=== PATIENT | male | born 1960 | race Caucasian/White ===

== ENCOUNTER 2016-07-23 08:43 | Observation (INO) | payer SELFPAY ==
[~2016-07-23] VITALS: Ht 170.2 cm; Wt 68.0 kg
[2016-07-23 08:48] VITALS: BP 136/88; PULSE 96; RESP 18; TEMP 98.2; O2SAT 97
[2016-07-23 09:00] VITALS: BP 138/91; PULSE 85; RESP 20; TEMP 98; O2SAT 100
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
[2016-07-23] MEDS ORDERED: SODIUM CHLOR 0.9% 1000 ML INJ 1,000 ML IV SCH (09:27)
[2016-07-23] MEDS ORDERED: SODIUM CHLORIDE 0.9% FLUSH 10 ML FLUSH IV FLUSH PRN ×2 (09:30→11:30)
[2016-07-23] MEDS ORDERED: PANTOPRAZOLE SODIUM 40 MG VIAL IVP ONE (09:30)
[2016-07-23] MEDS ORDERED: ASPIRIN 81 MG CHEW TAB CHEW ONE (10:00)
[2016-07-23 10:07] LABS: BASOPHIL # 0.1 TH/MM3 (0-0.2); BASOPHIL % 1.2 % (0.0-2.0); EOSINOPHIL # 0.3 TH/MM3 (0-0.4); EOSINOPHIL % 2.2 % (0.0-4.0); HEMO FLAGS DIFF FINAL; LYMPHOCYTE # 2.5 TH/MM3 (1.0-4.8); MEAN CELL VOLUME 93.9 FL (80.0-100.0); MEAN CORPUSCULAR HEMOGLOBIN 32.4 PG (27.0-34.0); MEAN CORPUSCULAR HGB CONC 34.5 % (32.0-36.0); MONO % 8.7 % (0.0-8.0); NEUT % 66.9 % (16.0-70.0); PLATELET COUNT 496 TH/MM3 (150-450); RED BLOOD COUNT 4.69 MIL/MM3 (4.50-5.90); RED CELL DISTRIBUTION WIDTH 13.7 % (11.6-17.2); WHITE BLOOD COUNT 11.9 TH/MM3 (4.0-11.0)
[2016-07-23 10:09] VITALS: BP 134/85; PULSE 76; RESP 20; O2SAT 100
[2016-07-23 10:12] LABS: BACTERIA, URINE RARE /hpf; BLOOD, URINE NEG (NEG); GLUCOSE,URINE NEG (NEG); KETONE, URINE NEG (NEG); NITRITE,URINE NEG (NEG); PH, URINE 8.5 (5.0-8.5); SQUAMOUS EPITHELIAL CELL URINE <1 /hpf (0-5); URINE COLOR YELLOW (YELLW/STRAW)
[2016-07-23 10:13] LABS: COMMENT (UR) CULT NOT INDICATED; CULTURE IF INDICATED CULT NOT INDICATED
[2016-07-23 10:21] LABS: PROTHROMBIN TIME - PATIENT 10.6 SEC (9.8-11.6)
--- NOTE | 2016-07-23 10:23 | RADRPT ---
EXAM DATE/TIME: 07/23/2016 09:54 [place] COMPARISON: No previous studies available for comparison. INDICATIONS : Lower pelvic pain. ORAL CONTRAST: No oral contrast ingested. RADIATION DOSE: 9.96 CTDIvol (mGy) MEDICAL HISTORY : Gastroesophageal reflux disease. Pancreatitis. SURGICAL HISTORY : None. ENCOUNTER: Initial ACUITY: 1 week PAIN SCALE: 9/10 LOCATION: abdomen TECHNIQUE: Volumetric scanning of the abdomen and pelvis was performed. Using automated exposure control and ad justment of the mA and/or kV according to patient size, radiation dose was kept as low as reasonably achievable to obtain optimal diagnostic quality images. FINDINGS: LOWER LUNGS: The visualized lower lungs are clear. LIVER: Homogeneous density without lesion. There is no dilation of the biliary tree. No calcified gallston es. SPLEEN: Normal size without lesion. PANCREAS: Within normal limits. KIDNEYS: Normal in size and shape. There is no mass, stone, or hydronephrosis. ADRENAL GLANDS: There is probable left adrenal nodule measuring 3.1 x 2.3 x 2.6 cm. The right adrenal gland is unrema rkable. VASCULAR: There is no aortic aneurysm. BOWEL/MESENTERY: The stomach, small bowel, and colon demonstrate no acute abnormality. There is no free intraperitone al air or fluid. ABDOMINAL WALL: Within normal limits. RETROPERITONEUM: There is no lymphadenopathy. BLADDER: No wall thickening or mass. REPRODUCTIVE: Within normal limits. INGUINAL: There is no lymphadenopathy or hernia. MUSCULOSKELETAL: There is grade I anterolisthesis of L4 in relation to L5 and L5 in relation to S1. Mild degenerative changes are noted throughout the thoracolumbar spine. CONCLUSION: 1. No acute intra-abdominal process. 2. Probable left adrenal nodule measuring 2.3 x 3.1 x 2.6 cm. 3. Grade I anterolisthesis of L4 in relation to L5 and L5 in relation to S1. 4. Mild degenerative changes involving the thoracolumbar spine. Mendoza Holden MD on July 23, 2016 at 10:12 Board Certified Radiologist. This report was verified electronically.
[2016-07-23 10:30] LABS: ALKALINE PHOSPHATASE 80 U/L (45-117); ALT (GPT) 25 U/L (12-78); ANION GAP 7 MEQ/L (5-15); AST (GOT) 32 U/L (15-37); BICARBONATE 25.2 MEQ/L (21.0-32.0); BLOOD UREA NITROGEN 17 MG/DL (7-18); CHLORIDE 102 MEQ/L (98-107); GLOMERULAR FILTRATION RATE 108 ML/MIN (>89); SODIUM (NA) 134 MEQ/L (136-145); TOTAL BILIRUBIN ADULT 0.2 MG/DL (0.2-1.0)
[2016-07-23 10:36] LABS: POTASSIUM 4.6 MEQ/L (3.5-5.1)
[2016-07-23] MEDS ORDERED: HEPARIN-D5W INJ 250 ML IV SCH (10:45)
[2016-07-23] MEDS ORDERED: MORPHINE SULFATE 4 MG/ML INJ IV PUSH ONE (10:45)
[2016-07-23] MEDS ORDERED: HEPARIN SODIUM - IV 10,000 UNITS/10 ML VIAL IV ONE (10:45)
[2016-07-23] MEDS ORDERED: NITROGLYCERIN 0.4 MG SL 25 TABS/BTL SL PRN (11:30)
[2016-07-23] MEDS ORDERED: HALOPERIDOL LACTATE 5 MG/ML AMP IM PRN (11:30)
[2016-07-23] MEDS ORDERED: ACETAMINOPHEN 325 MG TAB PO PRN ×2 (11:30)
[2016-07-23] MEDS ORDERED: NALOXONE HCL 0.4 MG/ML AMP IV PRN (11:30)
[2016-07-23] MEDS ORDERED: SENNOSIDES 8.6 MG TAB PO PRN (11:30)
[2016-07-23] MEDS ORDERED: LORazepam 2 MG TAB PO PRN (11:30)
[2016-07-23] MEDS ORDERED: BISACODYL 10 MG SUPP PR PRN (11:30)
[2016-07-23] MEDS ORDERED: LORazepam 1 MG TAB PO PRN (11:30)
[2016-07-23] MEDS ORDERED: LORazepam 2 MG/ML VIAL IV PUSH PRN ×4 (11:30)
[2016-07-23] MEDS ORDERED: FLUMAZENIL 0.5 MG/5 ML VIAL IV PUSH PRN (11:30)
[2016-07-23] MEDS ORDERED: MAGNESIUM HYDROXIDE SUSP 30 ML CUP PO PRN (11:30)
[2016-07-23] MEDS ORDERED: CALCIUM CARBONATE 500 MG CHEWABLE TAB CHEW PRN (11:30)
[2016-07-23] MEDS ORDERED: ALUMINUM/MAGNESIUM/SIMETH 30 ML CUP PO PRN (11:30)
[2016-07-23] MEDS: DOCUSATE SODIUM 100 MG CAP PO SCH ×2 (12:21→20:20)
[2016-07-23 12:22] LABS: HEMATOCRIT 39.8 % (39.0-51.0); MEAN CELL VOLUME 93.9 FL (80.0-100.0); MEAN CORPUSCULAR HEMOGLOBIN 32.3 PG (27.0-34.0); MEAN CORPUSCULAR HGB CONC 34.3 % (32.0-36.0); PLATELET COUNT 441 TH/MM3 (150-450); RED BLOOD COUNT 4.24 MIL/MM3 (4.50-5.90); RED CELL DISTRIBUTION WIDTH 13.7 % (11.6-17.2); REVIEW FLAG FINAL; WHITE BLOOD COUNT 12.4 TH/MM3 (4.0-11.0)
[2016-07-23 12:57] VITALS: BP 129/84; PULSE 66; RESP 20; O2SAT 98
[2016-07-23 12:58] LABS: CREATINE KINASE 73 U/L (39-308)
[2016-07-23] MEDS: PANTOPRAZOLE SODIUM 40 MG VIAL IV PUSH SCH (13:00)
--- NOTE | 2016-07-23 13:16 | HHI.HP ---
[facility] Service [facility] Primary Care Physician No Primary Care Physician Admission Diagnosis chest pain, rule out ACS Diagnoses: Chief Complaint: abdominal pain Travel History International Travel<30 Days: No Contact w/Intl Traveler <30 Da: No Traveled to Known Affected Are: No History of Present Illness This is a pleasant 55-year-old male patient with past medical history of GERD, gastritis, pancreatitis, EtOH abuse stopped 2.5 weeks ago and continued tobacco abuse 1 pack per day. 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 Patient initially stopped drinking thinking that was contributing to his epigastric pain and reports that it got better at first and then about a week ago returned. Patient describes the pain as a severe constant ball/knot feeling in his stomach. Patient reports the pain is so bad at times it brings him to tears. Currently is 2 out of 10 after pain medication given in emergency department. Patient reports the pain does not seem to be related to food does seem to be worse with activity and movement. Patient reports the pain is decreased by drinking milk taking [id number] Tums or Maalox. Patient denies nausea vomiting diarrhea constipation or black tarry stools or bright red blood per rectum. Patient denies chest pain initial EKG reviewed by emergency department MD reveals sinus rhythm rate 75 Q waves V1 and V2 ST elevation in V6 and V2. Patient denies associated shortness of breath or diaphoresis. Patient also denies fevers chills changes in appetite or changes in weight Review of Systems Except as stated in HPI: all other systems reviewed are Neg Past Family Social History Past Medical History GERD, gastritis, pancreatitis, EtOH abuse stopped 2.5 weeks ago and continued tobacco abuse 1 pack per day. Past Surgical History Left knee surgery as a child Reported Medications Denies any home medications on a daily basis Allergies: Coded Allergies: No Known Allergies (Unverified , 07/23/16) Active Ordered Medications Current Medications Medications (Trade) Dose Ordered Sig/Peg Route Start Time Stop Time Status Last Admin (Heparin-D5W Inj) 250 ml @ 0 mls/hr TITRATE IV 07/23/16 10:45 07/23/16 11:28 (NS Flush) 2 ml UNSCH PRN IV FLUSH 07/23/16 11:30 (NS Flush) 2 ml BID IV FLUSH 07/23/16 21:00 (Tylenol) 650 mg Q4H PRN PO 07/23/16 11:30 (Zofran Inj) 4 mg Q6H PRN IVP 07/23/16 11:30 (Dulcolax Supp) [address] 07/23/16 11:30 (Colace) 100 mg Q12HR PO 07/23/16 11:30 07/23/16 12:21 (Milk Of Magnesia Liq) 30 ml Q12H PRN PO 07/23/16 11:30 (Senokot) 17.2 mg Q12H PRN PO 07/23/16 11:30 (Tylenol) 650 mg Q6H PRN PO 07/23/16 11:30 ([place] 5-325 Mg) 1 tab Q4H PRN PO 07/23/16 11:30 ([place] 10-325 Mg) 1 tab Q4H PRN PO 07/23/16 11:30 (Morphine Inj) 2 mg Q3H PRN IV 07/23/16 11:30 (Narcan Inj) 0.4 mg UNSCH PRN IV 07/23/16 11:30 (Aspirin) 325 mg DAILY PO 07/24/16 09:00 (Nitroglycerin 2% Oint) 0.5 inch Q8HR TOP 07/23/16 14:00 (Nitrostat Sl) 0.4 mg Q5M PRN SL 07/23/16 11:30 (Mag-Al Plus Susp Liq) 30 ml Q6H PRN PO 07/23/16 11:30 (Tums Chew) 500 mg Q6H PRN CHEW 07/23/16 11:30 (Protonix) 40 mg DAILY PO 07/24/16 09:00 (Folate) 1 mg DAILY PO 07/24/16 09:00 07/29/16 08:59 (Vitamin B1) 100 mg DAILY PO 07/24/16 09:00 (Theragran M Tab) 1 tab DAILY PO 07/24/16 09:00 07/29/16 08:59 (Romazicon Inj) 0.2 mg Q1M PRN IV PUSH 07/23/16 11:30 (Ativan) 1 mg Q4H PRN PO 07/23/16 11:30 (Ativan Inj) 1 mg Q4H PRN IV PUSH 07/23/16 11:30 (Ativan) 2 mg Q2H PRN PO 07/23/16 11:30 (Ativan Inj) 2 mg Q2H PRN IV PUSH 07/23/16 11:30 (Ativan Inj) 2 mg Q1H PRN IV PUSH 07/23/16 11:30 (Ativan Inj) 2 mg Q15M PRN IV PUSH 07/23/16 11:30 (Haldol Inj) 2 mg Q15M PRN IM 07/23/16 11:30 Family History denies family family history of CAD, [place] Social History Quit ETOH use 2.5 weeks ago prior to that drank, "a lot." tobacco use 1 PPD Physical Exam Vital Signs Vital Signs Date Time Temp Pulse Resp B/P Pulse Ox O2 Delivery O2 Flow Rate FiO2 07/23/16 10:09 76 20 134/85 100 Room Air 07/23/16 09:00 98.0 85 20 138/91 100 07/23/16 08:48 98.2 96 18 136/88 97 Room Air Physical Exam GENERAL: This is a well-nourished, well-developed patient, in no apparent distress. SKIN: [place] leathery skin EYES: Extraocular motions intact. No scleral icterus. No injection or drainage. CARDIOVASCULAR: Regular rate and rhythm without murmurs, gallops, or rubs. RESPIRATORY: Clear to auscultation. Breath sounds equal bilaterally. No wheezes , rales, or rhonchi. GASTROINTESTINAL: Abdomen soft, nondistended, positive March sign positive MUSCULOSKELETAL: Extremities without clubbing, cyanosis, or edema. No joint tenderness, effusion, or edema noted. No calf tenderness. Negative Homans sign bilaterally. NEUROLOGICAL: Awake and alert. Motor and sensory grossly within normal limits. Five out of 5 muscle strength in all muscle groups. Normal speech. Laboratory Laboratory Tests Test 07/23/16 07/23/16 07/23/16 07/23/16 08:36 08:40 10:00 11:57 White Blood Count 11.9 12.4 Red Blood Count 4.69 4.24 Hemoglobin 15.2 13.7 Hematocrit 44.0 39.8 Mean Corpuscular Volume 93.9 93.9 Mean Corpuscular Hemoglobin 32.4 32.3 Mean Corpuscular Hemoglobin 34.5 34.3 Concent Red Cell Distribution Width 13.7 13.7 Platelet Count 496 441 Mean Platelet Volume 7.9 7.0 Neutrophils (%) (Auto) 66.9 Lymphocytes (%) (Auto) 21.0 Monocytes (%) (Auto) 8.7 Eosinophils (%) (Auto) 2.2 Basophils (%) (Auto) 1.2 Neutrophils # (Auto) 8.0 Lymphocytes # (Auto) 2.5 Monocytes # (Auto) 1.0 Eosinophils # (Auto) 0.3 Basophils # (Auto) 0.1 CBC Comment DIFF FINAL Differential Comment Prothrombin Time 10.6 Prothromb Time International 1.0 Ratio Sodium Level 134 Potassium Level 4.6 Chloride Level 102 Carbon Dioxide Level 25.2 Anion Gap 7 Blood Urea Nitrogen 17 Creatinine 0.75 Estimat Glomerular Filtration 108 Rate Random Glucose 77 Calcium Level 9.9 Total Bilirubin 0.2 Aspartate Amino Transf 32 (AST/SGOT) Alanine Aminotransferase 25 (ALT/SGPT) Alkaline Phosphatase 80 Troponin I LESS THAN 0.02 Total Protein 7.5 Albumin 3.4 Lipase 258 Urine Color YELLOW Urine Turbidity CLOUDY Urine pH 8.5 Urine Specific [place] 1.022 Urine Protein 30 Urine Glucose (UA) NEG Urine Ketones NEG Urine Occult Blood NEG Urine Nitrite NEG Urine Bilirubin NEG Urine Urobilinogen LESS THAN 2.0 Urine Leukocyte Esterase NEG Urine RBC 2 Urine WBC 3 Urine Squamous Epithelial <1 Cells Urine Amorphous Sediment MOD Urine Bacteria RARE Microscopic Urinalysis Comment CULT NOT INDICATED Activated Partial 28.0 Thromboplast Time Result Diagram: 07/23/16 1157 07/23/16 0836 Imaging Last Impressions Abdomen/Pelvis CT 07/23/16926 Signed Impressions: Service Date/Time: Saturday, July 23, 2016 09:54 - CONCLUSION: 1. No acute intra-abdominal process. 2. Probable left adrenal nodule measuring 2.3 x 3.1 x 2.6 cm. 3. Grade I anterolisthesis of L4 in relation to L5 and L5 in relation to S1. 4. Mild degenerative changes involving the thoracolumbar spine. Mendoza W. Holden, MD Assessment and Plan Problem List: (1) Epigastric abdominal pain ICD Code: R10.13 Status: Acute (2) Abnormal EKG ICD Code: R94.31 Status: Acute (3) Dyspepsia ICD Code: R10.13 Status: Acute (4) Alcohol abuse ICD Code: F10.10 Status: Chronic (5) ETOH abuse ICD Code: F10.10 Status: Chronic Assessment and Plan This is a pleasant 55-year-old male patient with past medical history of GERD, gastritis, pancreatitis, EtOH abuse stopped 2.5 weeks ago and continued tobacco abuse 1 pack per day. 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 Patient initially stop drinking thinking that was contributing to his epigastric pain and reports that it got better first and then about a week ago returned. Patient describes the pain as a severe constant ball/knot feeling in his stomach. Patient reports the pain is so bad at times it brings him to tears. Patient denies chest pain initial EKG reviewed by emergency department MD reveals sinus rhythm rate 75 Q waves V1 and V2 ST elevation in V6 and V2. Patient denies associated shortness of breath or diaphoresis. Epigastric pain with abnormal EKG Rule out ACS Serial EKG Serial troponin Aspirin daily Continue heparin drip for now Consult cardiology ER physician spoke with Dr. Daniels Nitronicolestleandro 0.5 inches every 8 hours Continuous telemetry Heart healthy diet Oxygen as needed to maintain oxygen saturation above 92% Epigastric pain- posterior margin March sign question cholecystitis Dyspepsia Protonix IV CT reviewed by myself as well as Dr. Palafox Lipase 258 Calcium carbonate and Maalox as needed If second set of troponin negative and EKG unchanged will discuss with cardiology possible discontinue heparin drip and order HIDA scan EtOH abuse patient reports he quit drinking 2.5 weeks ago [facility] protocol Folic acid Thiamine supplementation Tobacco abuse patient counseled encouraged to abstain No nicotine patch at this time possible ACS Repeat CBC and BMP in a.m. For DVT prophylaxis currently on heparin drip and SCDs Discussed with ER provider, nurse and patient Written by Peyton Arndt, acting as scribe for Dr. Palafox on 07/23/16 at 13:12. All or portions of this note were transcribed by scribe []. I, Dr. Jacinto Palafox personally performed the history, physical exam, and medical decision making; and confirmed the accuracy of the information in the transcribed note. Authenticated by Dr. Jacinto Palafox on 07/23/16 at 14:03. case discussed with Dr. Daniels by Dr. Palafox. Heparin drip discontinued- plan for echo and cardiac stress test will hold off on further GI work up await cardiac clearance Peyton Arndt Jul 23, 2016 13:16 Jacinto Palafox MD Jul 23, 2016 14:03
--- NOTE | 2016-07-23 14:46 | MB ---
cc: ALEXA DANIELS MD DATE OF CONSULTATION: 07/23/2016 HISTORY OF PRESENT ILLNESS Mr. Patel is a 55-year-old white male with a history of gastroesophageal reflux disease, gastritis, pancreatitis and heavy alcohol use. He developed epigastric pain about 2-1/2 weeks ago and stopped drinking alcohol at that time. His pain continued and he presented to the emergency room. He has not had any chest pain or shortness of breath. His pain is decreased with Tums and Maalox and drinking milk. He was found to have an abnormal EKG in the emergency room. He is now referred for cardiac evaluation. PAST MEDICAL HISTORY 1. Gastroesophageal reflux disease. 2. Gastritis. 3. Pancreatitis. 4. History of left knee surgery. MEDICATIONS None. ALLERGIES None. SOCIAL HISTORY The patient is a smoker. He admits to heavy alcohol use. FAMILY HISTORY Negative for heart disease. REVIEW OF SYSTEMS Otherwise negative. PHYSICAL EXAMINATION VITAL SIGNS: Blood pressure 129/84, pulse 66 and regular. HEENT: Negative. NECK: 2+ carotid upstrokes. No bruits. LUNGS: Clear. HEART: Regular with no murmur or gallop. ABDOMEN: Soft. No bruit. There is mild epigastric tenderness. EXTREMITIES: Without edema. 2+ distal pulses. NEUROLOGIC: Grossly nonfocal. EKG EKG was reviewed and showed sinus rhythm, anteroseptal Q-waves, nonspecific ST changes. LABORATORY Hemoglobin 13.7. Potassium 4.6. Creatinine 0.75. Troponin negative x2. CK 73. DIAGNOSIS 1. Epigastric pain. 2. Abnormal EKG. 3. History of gastritis and pancreatitis. 4. Smoking. 5. Heavy alcohol use. PLAN/RECOMMENDATIONS Mr. Patel will be monitored on telemetry. We will obtain an echocardiogram to evaluate his left ventricular function. He will be scheduled for an adenosine myocardial perfusion study to evaluate for ischemia. I will follow him for cardiology during his hospitalization. Alexa Daniels MD OQ/BT /2:16 PM /2:34 PM JOANA
[2016-07-23] MEDS: NITROGLYCERIN 2% OINT 1 GM PACKET TOP SCH ×2 (15:47→20:21)
[2016-07-23] MEDS: ACETAMINOPHEN/HYDROcodone 325 MG/5 MG TAB PO PRN (15:51)
[2016-07-23] MEDS: ONDANSETRON HCL 4 MG/2 ML VIAL IVP PRN ×2 (15:51→15:54)
[2016-07-23 18:01] LABS: CREATINE KINASE 93 U/L (39-308)
[2016-07-23 19:44] VITALS: BP 113/74; PULSE 87; RESP 18; TEMP 97.8; O2SAT 95
[2016-07-23] MEDS: SODIUM CHLORIDE 0.9% FLUSH 10 ML FLUSH IV FLUSH SCH (20:20)
[2016-07-23] MEDS: ACETAMINOPHEN/HYDROcodone 325 MG/10 MG TAB PO PRN (20:20)
[2016-07-23] MEDS: MORPHINE SULFATE 4 MG/ML INJ IV PRN (22:13)
[2016-07-24] MEDS: ACETAMINOPHEN/HYDROcodone 325 MG/10 MG TAB PO PRN ×3 (00:48→11:22)
[2016-07-24 01:44] VITALS: BP 113/78; PULSE 87; RESP 18; TEMP 97.8; O2SAT 97
[2016-07-24 04:31] VITALS: BP 118/75; PULSE 59; RESP 18; TEMP 98; O2SAT 97
[2016-07-24] MEDS: NITROGLYCERIN 2% OINT 1 GM PACKET TOP SCH ×2 (05:01→14:00)
[2016-07-24] MEDS: MORPHINE SULFATE 4 MG/ML INJ IV PRN (06:12)
[2016-07-24 07:57] VITALS: BP 124/85; PULSE 69; RESP 20; TEMP 97.9; O2SAT 69
--- NOTE | 2016-07-24 08:23 | HHI.PR ---
Subjective Remarks Follow-up epigastric pain. Reports improved epigastric pain especially with pain medicines but recurs immediately. Currently nothing by mouth for stress test. Echocardiogram pending. Discussed with RN Objective Vitals Vital Signs Date Time Temp Pulse Resp B/P Pulse Ox O2 Delivery O2 Flow Rate FiO2 07/24/16 07:57 97.9 69 20 124/85 69 07/24/16 06:38 16 07/24/16 04:31 98.0 59 18 118/75 97 07/24/16 01:44 97.8 87 18 113/78 97 07/23/16 19:44 97.8 87 18 113/74 95 07/23/16 12:57 66 20 129/84 98 Room Air 07/23/16 10:09 76 20 134/85 100 Room Air 07/23/16 09:00 98.0 85 20 138/91 100 07/23/16 08:48 98.2 96 18 136/88 97 Room Air Result Diagram: 07/23/16 1157 07/23/16 0836 Imaging Last Impressions Abdomen/Pelvis CT 07/23/16926 Signed Impressions: Service Date/Time: Saturday, July 23, 2016 09:54 - CONCLUSION: 1. No acute intra-abdominal process. 2. Probable left adrenal nodule measuring 2.3 x 3.1 x 2.6 cm. 3. Grade I anterolisthesis of L4 in relation to L5 and L5 in relation to S1. 4. Mild degenerative changes involving the thoracolumbar spine. Mendoza Holden MD Objective Remarks GENERAL: This is a well-nourished, well-developed patient, in no apparent distress. SKIN: [place] leathery skin EYES: Extraocular motions intact. No scleral icterus. No injection or drainage. CARDIOVASCULAR: Regular rate and rhythm without murmurs, gallops, or rubs. RESPIRATORY: Clear to auscultation. Breath sounds equal bilaterally. No wheezes , rales, or rhonchi. GASTROINTESTINAL: Abdomen soft, nondistended, positive March sign positive MUSCULOSKELETAL: Extremities without clubbing, cyanosis, or edema. No joint tenderness, effusion, or edema noted. No calf tenderness. Negative Homans sign bilaterally. NEUROLOGICAL: Awake and alert. Motor and sensory grossly within normal limits. Five out of 5 muscle strength in all muscle groups. Normal speech. Procedures none A/P Problem List: (1) Epigastric abdominal pain ICD Code: R10.13 Status: Acute (2) Abnormal EKG ICD Code: R94.31 Status: Acute (3) Dyspepsia ICD Code: R10.13 Status: Acute (4) Alcohol abuse ICD Code: F10.10 Status: Chronic (5) ETOH abuse ICD Code: F10.10 Status: Chronic Assessment and Plan This is a pleasant 55-year-old male patient with past medical history of GERD, gastritis, pancreatitis, EtOH abuse stopped 2.5 weeks ago and continued tobacco abuse 1 pack per day. 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 Patient initially stop drinking thinking that was contributing to his epigastric pain and reports that it got better first and then about a week ago returned. Patient describes the pain as a severe constant ball/knot feeling in his stomach. Patient reports the pain is so bad at times it brings him to tears. Patient denies chest pain initial EKG reviewed by emergency department MD reveals sinus rhythm rate 75 Q waves V1 and V2 ST elevation in V6 and V2. Patient denies associated shortness of breath or diaphoresis. Epigastric pain with abnormal EKG Ruled out for ACS with serial cardiac enzymes. Follow-up pending echo and stress test Aspirin daily Discontinued heparin drip Consulted cardiology Nitropaste 0.5 inches every 8 hours which the patient is refusing Continuous telemetry Heart healthy diet Oxygen as needed to maintain oxygen saturation above 92% Epigastric pain- posterior margin March sign question cholecystitis Dyspepsia Protonix IV CT reviewed by myself as well as Dr. Palafox Lipase 258 Calcium carbonate and Maalox as needed LFTs within normal limits. Obtain HIDA scan which can be done in 2 days after nuclear stress test which the patient is not willing to do. We'll check abdominal sonogram. Patient advised to follow-up with GI outpatient EtOH abuse patient reports he quit drinking 2.5 weeks ago. Counseled [facility] protocol Folic acid Thiamine supplementation Tobacco abuse patient counseled encouraged to abstain No nicotine patch at this time possible ACS DVT prophylaxis ambulation and SCDs Discharge Planning Discharge patient to home Condition on discharge: Improved Regular Diet as tolerated Ad Tamiko activity no driving Rx written: Lortab and Protonix Follow-up with primary care physician and GI in one week Jacinto Palafox MD Jul 24, 2016 08:23 Epigastric pain- posterior margin March sign question cholecystitis Dyspepsia Protonix IV CT reviewed by myself as well as Dr. Palafox Lipase 258 Calcium carbonate and Maalox as needed If second set of troponin negative and EKG unchanged will discuss with cardiology possible discontinue heparin drip and order HIDA scan EtOH abuse patient reports he quit drinking 2.5 weeks ago [facility] protocol Folic acid Thiamine supplementation Tobacco abuse patient counseled encouraged to abstain No nicotine patch at this time possible ACS Repeat CBC and BMP in a.m. For DVT prophylaxis currently on heparin drip and SCDs Jacinto Palafox MD Jul 24, 2016 08:23
[2016-07-24] MEDS ORDERED: HYDR-3583 PO (08:24)
[2016-07-24] MEDS ORDERED: ASPIRIN 325 MG TAB PO SCH (09:00)
[2016-07-24] MEDS ORDERED: MULTIVITAMINS/MINERALS THERAPEUTIC TAB PO SCH (09:00)
[2016-07-24] MEDS ORDERED: THIAMINE HCL 100 MG TAB PO SCH (09:00)
[2016-07-24] MEDS ORDERED: PANTOPRAZOLE SOD 40 MG DELAYED RELEASE TAB PO SCH (09:00)
[2016-07-24] MEDS: DOCUSATE SODIUM 100 MG CAP PO SCH (09:00)
[2016-07-24] MEDS: SODIUM CHLORIDE 0.9% FLUSH 10 ML FLUSH IV FLUSH SCH (09:00)
[2016-07-24] MEDS ORDERED: FOLIC ACID 1 MG TAB PO SCH (09:00)
[2016-07-24] MEDS ORDERED: ASPIRIN EC 325 MG TABEC PO SCH (09:00)
--- NOTE | 2016-07-24 09:27 | RADRPT ---
EXAM DATE/TIME: 07/24/2016 08:25 [facility] COMPARISON: No previous studies available for comparison. INDICATIONS : Right upper quadrant pain. MEDICAL HISTORY : Gastritis. ETOH. SURGICAL HISTORY : Left knee surgery. ENCOUNTER: Subsequent ACUITY: 1 week PAIN SCORE: 2/10 LOCATION: Right upper quadrant MEASUREMENTS: LIVER: 15.9 cm length COMMON DUCT: 8 mm RIGHT KIDNEY: 10.1 x 4.3 x 6.4 cm FINDINGS: LIVER: Slightly heterogeneous and mildly increased echotexture without focal lesion or ductal dilatation. COMMON DUCT: No intraluminal mass or stone visualized. GALLBLADDER: Contains no stones, demonstrates no wall thickening or pericholecystic fluid. Small amount sludge in the gallbladder neck, however. PANCREAS: The visualized portions are within normal limits. RIGHT KIDNEY: No evidence of hydronephrosis, stone, or mass. CONCLUSION: 1. Heterogeneous and slightly increased hepatic echotexture suggesting some degree of fatty infiltrat ion. 2. Gallbladder luminal sludge without stones, pericholecystic fluid or mural thickening. 3. Slightly prominent CBD. Etiology is uncertain. Markus Carmen MD on July 24, 2016 at 9:13 Board Certified Radiologist. This report was verified electronically.
[2016-07-24] MEDS ORDERED: REGADENOSON INJ 0.4 MG/5 ML SYR ONE (09:45)
[2016-07-24 11:06] VITALS: BP 121/81; PULSE 73; RESP 20; TEMP 98; O2SAT 96
[2016-07-24] MEDS ORDERED: VITA100T2 PO (11:16)
[2016-07-24] MEDS ORDERED: ZANT150T2 PO (11:16)
--- NOTE | 2016-07-24 11:17 | HHI.DCPOC ---
Discharge Care Plan Diagnosis: (1) Abnormal EKG (2) Epigastric abdominal pain Your Health Problems Are: Difficulty with ADL Exercise Tolerance Goals to Promote Your Health * To prevent worsening of your condition and complications * To maintain your health at the optimal level Directions to Meet Your Goals Take your medications as prescribed Follow your dietary instruction Follow activity as directed Keep your appointments as scheduled Take your immunizations and boosters as scheduled If your symptoms worsen call your PCP, if no PCP go to Urgent Care Center or Emergency Room Smoking is Dangerous to Your Health. Avoid second hand smoke Call the 24-hour hour crisis hotline for domestic abuse at Jacinto Palafox MD Jul 24, 2016 11:17
[2016-07-24] MEDS: PANTOPRAZOLE SODIUM 40 MG VIAL IV PUSH SCH (11:23)
--- NOTE | 2016-07-24 12:43 | RADRPT ---
EXAM DATE/TIME: 07/24/2016 08:53 [facility] COMPARISON: No previous studies available for comparison. INDICATIONS : Epigastric pain for 1 week. Abnormal EKG. DOSE: 27.0 mCi Tc99m Myoview at stress. 8.5 mCi Tc99m Myoview at rest. 0.4 mg Lexiscan STRESS SYMPTOMS: Dyspnea and lightheaded EJECTION FRACTION: 58% MEDICAL HISTORY : Gastroesophageal reflux disease. Pancreatitis. Smoker. SURGICAL HISTORY : Left knee. ENCOUNTER: Initial ACUITY: 1 week PAIN SCALE: 3/10 LOCATION: Epigastric region. TECHNIQUE: The patient underwent pharmacologic stress with infusion of prescribed dose. Continuous ECG tracing was monitored during stress. Gated SPECT imaging was performed after stress and conventional SPECT i maging was performed at rest. The examination was performed on a SPECT/CT scanner, both attenuation and non-corrected datasets were reviewed. FINDINGS: DISTRIBUTION: The maximum perfused segment at stress is in the anterolateral wall. PERFUSION STUDY: The pattern of perfusion at stress shows fixed diminished perfusion to the apex. No reversibility to suggest ischemia. GATED STUDY: Septal hypokinesis with a preserved ejection fraction of 58%. CONCLUSION: 1. There is diminished perfusion to the apex characteristic of apical thinning or old apical infarct. 2. No reversibility to suggest ischemia. 3. Mild septal hypokinesis with a preserved ejection fraction of 58%. RISK CATEGORY: Low (<1% Annual Mortality Rate) Markus Carmen MD on July 24, 2016 at 12:39 Board Certified Radiologist. This report was verified electronically.
[2016-07-24 14:03] LABS: AUTOMATED NEUTROPHIL # 7.9 TH/MM3 (1.8-7.7); BASOPHIL # 0.1 TH/MM3 (0-0.2); BASOPHIL % 1.2 % (0.0-2.0); EOSINOPHIL # 0.2 TH/MM3 (0-0.4); HEMATOCRIT 42.4 % (39.0-51.0); HEMO FLAGS DIFF FINAL; LYMPH % 23.2 % (9.0-44.0); LYMPHOCYTE # 2.8 TH/MM3 (1.0-4.8); MEAN CELL VOLUME 94.2 FL (80.0-100.0); MEAN CORPUSCULAR HEMOGLOBIN 32.6 PG (27.0-34.0); MEAN CORPUSCULAR HGB CONC 34.6 % (32.0-36.0); MONO % 7.2 % (0.0-8.0); NEUT % 66.4 % (16.0-70.0); PLATELET COUNT 485 TH/MM3 (150-450); RED BLOOD COUNT 4.49 MIL/MM3 (4.50-5.90); RED CELL DISTRIBUTION WIDTH 13.5 % (11.6-17.2); WHITE BLOOD COUNT 11.9 TH/MM3 (4.0-11.0)
[2016-07-24 14:34] LABS: POTASSIUM 3.6 MEQ/L (3.5-5.1)
--- NOTE | 2016-07-24 16:01 | PD.CARD.PN ---
Subjective Subjective Remarks No CP or SOB, still c/o epigastric pain Objective Medications Current Medications Medications (Trade) Dose Ordered Sig/Peg Route Start Time Stop Time Status Last Admin (NS Flush) 2 ml UNSCH PRN IV FLUSH 07/23/16 11:30 (NS Flush) 2 ml BID IV FLUSH 07/23/16 21:00 07/24/16 09:00 (Tylenol) 650 mg Q4H PRN PO 07/23/16 11:30 (Zofran Inj) 4 mg Q6H PRN IVP 07/23/16 11:30 07/23/16 15:54 (Dulcolax Supp) 10 mg DAILY PRN MA 07/23/16 11:30 (Colace) 100 mg Q12HR PO 07/23/16 11:30 07/23/16 12:21 (Milk Of Magnesia Liq) 30 ml Q12H PRN PO 07/23/16 11:30 (Senokot) 17.2 mg Q12H PRN PO 07/23/16 11:30 (Tylenol) 650 mg Q6H PRN PO 07/23/16 11:30 ([place] 5-325 Mg) 1 tab Q4H PRN PO 07/23/16 11:30 07/23/16 15:51 ([place] 10-325 Mg) 1 tab Q4H PRN PO 07/23/16 11:30 07/24/16 11:22 (Morphine Inj) 2 mg Q3H PRN IV 07/23/16 11:30 07/24/16 06:12 (Narcan Inj) 0.4 mg UNSCH PRN IV 07/23/16 11:30 (Nitroglycerin 2% Oint) 0.5 inch Q8HR TOP 07/23/16 14:00 (Nitrostat Sl) 0.4 mg Q5M PRN SL 07/23/16 11:30 (Mag-Al Plus Susp Liq) 30 ml Q6H PRN PO 07/23/16 11:30 (Tums Chew) 500 mg Q6H PRN CHEW 07/23/16 11:30 (Folate) 1 mg DAILY PO 07/24/16 09:00 07/29/16 08:59 07/24/16 11:22 (Vitamin B1) 100 mg DAILY PO 07/24/16 09:00 07/24/16 11:21 (Theragran M Tab) 1 tab DAILY PO 07/24/16 09:00 07/29/16 08:59 07/24/16 11:22 (Romazicon Inj) 0.2 mg Q1M PRN IV PUSH 07/23/16 11:30 (Ativan) 1 mg Q4H PRN PO 07/23/16 11:30 (Ativan Inj) 1 mg Q4H PRN IV PUSH 07/23/16 11:30 (Ativan) 2 mg Q2H PRN PO 07/23/16 11:30 (Ativan Inj) 2 mg Q2H PRN IV PUSH 07/23/16 11:30 (Ativan Inj) 2 mg Q1H PRN IV PUSH 07/23/16 11:30 (Ativan Inj) 2 mg Q15M PRN IV PUSH 07/23/16 11:30 (Haldol Inj) 2 mg Q15M PRN IM 07/23/16 11:30 (Protonix Inj) 40 mg DAILY IV PUSH 07/23/16 13:00 07/24/16 11:23 (Ecotrin Ec) 325 mg DAILY PO 07/24/16 09:00 07/24/16 11:22 Vital Signs / I&O Vital Signs Date Time Temp Pulse Resp B/P Pulse Ox O2 Delivery O2 Flow Rate FiO2 07/24/16 11:06 98.0 73 20 121/81 96 07/24/16 07:57 97.9 69 20 124/85 69 07/24/16 06:38 16 07/24/16 04:31 98.0 59 18 118/75 97 07/24/16 01:44 97.8 87 18 113/78 97 07/23/16 19:44 97.8 87 18 113/74 95 Physical Exam GENERAL: In NAD SKIN: Warm and dry. HEAD: Normocephalic. EYES: No scleral icterus. No injection or drainage. NECK: Supple, trachea midline. No JVD or lymphadenopathy. CARDIOVASCULAR: Regular rate and rhythm without murmurs, gallops, or rubs. RESPIRATORY: Breath sounds equal bilaterally. No accessory muscle use. GASTROINTESTINAL: Abdomen soft, non-tender, nondistended. MUSCULOSKELETAL: No cyanosis, or edema. Laboratory Laboratory Tests Test 3/22/17 3/23/17 17:11 13:23 Total Creatine Kinase 93 U/L Troponin I LESS THAN 0.02 NG/ML White Blood Count 11.9 TH/MM3 Red Blood Count 4.49 MIL/MM3 Hemoglobin 14.6 GM/DL Hematocrit 42.4 % Mean Corpuscular Volume 94.2 FL Mean Corpuscular Hemoglobin 32.6 PG Mean Corpuscular Hemoglobin 34.6 % Concent Red Cell Distribution Width 13.5 % Platelet Count 485 TH/MM3 Mean Platelet Volume 7.7 FL Neutrophils (%) (Auto) 66.4 % Lymphocytes (%) (Auto) 23.2 % Monocytes (%) (Auto) 7.2 % Eosinophils (%) (Auto) 2.0 % Basophils (%) (Auto) 1.2 % Neutrophils # (Auto) 7.9 TH/MM3 Lymphocytes # (Auto) 2.8 TH/MM3 Monocytes # (Auto) 0.9 TH/MM3 Eosinophils # (Auto) 0.2 TH/MM3 Basophils # (Auto) 0.1 TH/MM3 CBC Comment DIFF FINAL Differential Comment Sodium Level 139 MEQ/L Potassium Level 3.6 MEQ/L Chloride Level 107 MEQ/L Carbon Dioxide Level 25.0 MEQ/L Anion Gap 7 MEQ/L Blood Urea Nitrogen 15 MG/DL Creatinine 0.73 MG/DL Estimat Glomerular Filtration 112 ML/MIN Rate Random Glucose 73 MG/DL Calcium Level 8.3 MG/DL Imaging Last Impressions Myocardial Perfusion Scan Nuc Med 07/24/16 0000 Signed Impressions: Service Date/Time: July 08:53 - CONCLUSION: 1. There is diminished perfusion to the apex characteristic of apical thinning or old apical infarct. 2. No reversibility to suggest ischemia. 3. Mild septal hypokinesis with a preserved ejection fraction of 58%%. RISK CATEGORY: Low (<1%% Annual Mortality Rate) Markus Carmen MD Gall Bladder Ultrasound 07/24/16 0000 Signed Impressions: Service Date/Time: July 08:25 - CONCLUSION: 1. Heterogeneous and slightly increased hepatic echotexture suggesting some degree of fatty infiltration. 2. Gallbladder luminal sludge without stones, pericholecystic fluid or mural thickening. 3. Slightly prominent CBD. Etiology is uncertain. Markus Carmen MD Abdomen/Pelvis CT 07/23/16 0927 Signed Impressions: Service Date/Time: Saturday, July 23, 2016 09:54 - CONCLUSION: 1. No acute intra-abdominal process. 2. Probable left adrenal nodule measuring 2.3 x 3.1 x 2.6 cm. 3. Grade I anterolisthesis of L4 in relation to L5 and L5 in relation to S1. 4. Mild degenerative changes involving the thoracolumbar spine. Mendoza Holden MD Assessment and Plan Problem List: (1) Epigastric abdominal pain (2) Abnormal EKG (3) Gastritis (4) Alcohol dependence (5) Tobacco abuse Assessment and Plan No evidence of ACS. Nuclear stress test with no evidence of ischemia. Symptoms likely of GI origin related to heavy alcohol use. OK to discharge from cardiac standpoint. Counseled to quit drinking. Alexa Daniels MD Jul 24, 2016 16:01
[2016-07-24] MEDS: ACETAMINOPHEN/HYDROcodone 325 MG/5 MG TAB PO PRN (16:05)
[2016-07-24 16:25] VITALS: BP 110/75; PULSE 79; RESP 20; TEMP 97.4; O2SAT 96
--- NOTE | 2016-07-24 19:01 | EC ---
Study Study Date:07/24/2016 STUDY CONCLUSIONS SUMMARY LEFT VENTRICLE: The cavity size was normal. Wall thickness was normal. Systolic function was normal. The estimated ejection fraction was in the range of 55% to 60%. Wall motion was normal; there were no regional wall motion abnormalities. If LV function is below 40, please consider prescribing an ACEI or ARB or document rationale for non-use. PROCEDURE DATA STUDY STATUS: Elective. Procedure: Transthoracic echocardiography. Image quality was good. Scanning was performed from the parasternal, apical, and subcostal acoustic windows. Study completion: The patient tolerated the procedure well. Transthoracic echocardiography. M-mode, complete 2D, complete spectral Doppler, and color Doppler. Height: Height: 67in. Weight: Weight: 148.7lb. Body mass index: BMI: 23.3kg/m^2. Body surface area: BSA: 1.78m^2. Patient status: Inpatient. CARDIAC ANATOMY LEFT VENTRICLE: The cavity size was normal. Wall thickness was normal. Systolic function was normal. The estimated ejection fraction was in the range of 55% to 60%. Wall motion was normal; there were no regional wall motion abnormalities. AORTIC VALVE: The valve appears to be grossly normal. Trileaflet. Doppler: There was no stenosis. No significant regurgitation. MITRAL VALVE: The valve appears to be grossly normal. Doppler: There was no evidence for stenosis. Trace regurgitation. Valve area by pressure half-time: 3.44cm^2. Indexed valve area by pressure half-time: 1.93cm^2/m^2. Peak gradient: 2mm Hg (D). LEFT ATRIUM: The atrium was normal in size. ATRIAL SEPTUM: No defect or patent foramen ovale was identified. RIGHT VENTRICLE: The cavity size was normal. PULMONIC VALVE: Not well visualized. Doppler: There was no evidence for stenosis. No significant regurgitation. TRICUSPID VALVE: The valve appears to be grossly normal. Doppler: There was no evidence for stenosis. No significant regurgitation. PERICARDIUM: There was no pericardial effusion. Patient weight: 148.7lb _Ejection fraction:_ 65-75% _Fractional shortening:_ 32% up to 5Kg 5-11.5Kg 11.6-22.9Kg 23-45Kg 45-57Kg Aortic Root 7-13 <17 13-22 17-27 17-27 LA diam 6-13 <23 24-38 33-47 37-40 RVID 10-17 7-15 7-15 7-18 8-17 LVIDd 12-22 <32 24-38 33-47 37-40 LVPW 2-4 3-6 5-7 6-8 7-8 IVS 2-4 3-6 5-7 6-8 7-8 BASIC MEASUREMENTS ADULT NORMAL Left ventricle LV internal dimension, ED, chordal *38.3 mm 43-52 level, PLAX LV internal dimension, ES, chordal 24.3 mm 23-38 level, PLAX Fractional shortening, chordal level, 37 % >29 PLAX LV posterior wall thickness, ED 11.3 mm IVS/LVPW ratio, ED 1 <1.3 Volume, ED, MOD, 1-plane 138 ml Volume, ES, MOD, 1-plane 51 ml Ejection fraction, MOD, 1-plane 63 % Stroke volume, MOD, 1-plane 87 ml Volume index, ED, MOD, 1-plane 78 ml/m^2 Volume index, ES, MOD, 1-plane 29 ml/m^2 Stroke index, MOD, 1-plane 48.9 ml/m^2 Ventricular septum Septal thickness, ED 11.3 mm Aortic valve Leaflet separation 21 mm 15-26 Left atrium Anterior-posterior dimension 31 mm Anterior-posterior dimension index 1.74 cm/m^2 <2.2 BASIC MEASUREMENTS ADULT NORMAL Aortic valve Leaflet separation 21 mm 15-26 Aorta Root diameter, ED 36 mm 20-37 DOPPLER MEASUREMENTS ADULT NORMAL Aortic valve Peak velocity, S 138 cm/s Mitral valve Peak E-wave velocity 72.6 cm/s Peak A-wave velocity 71.1 cm/s Pressure half-time 64 ms Peak gradient, D 2 mm Hg Peak E/A ratio 1 Valve area, pressure half-time 3.44 cm^2 Valve area index, pressure half-time 1.93 cm^2/m^2 Pulmonic valve Peak velocity, S 78.7 cm/s LEGEND: Mean values are shown as u=mean value. Asterisk (*) avery values outside specified normal range. Prepared and signed by Олег Duke [id number]
--- NOTE | 2016-07-24 20:32 | EKG ---
Date Performed: 07/23/2016 Time Performed: 09:55:11 PTAGE: 55 years EKG: Sinus rhythm SEPTAL MYOCARDIAL INFARCTION Slight ST elevation following septal Q wave in leads V1 and V2. NO PREVIOUS TRACING DOCTOR: Reno Matthews Interpretating Date/Time 07/24/2016 20:30:42
--- NOTE | 2016-07-24 20:34 | EKG ---
Date Performed: 07/23/2016 Time Performed: 12:55:25 PTAGE: 55 years EKG: Sinus rhythm SEPTAL MYOCARDIAL INFARCTION ACUTE OR Slight ST elevation following septal Q wave in leads V1 and V2. Since PREVIOUS TRACING , no significant change noted PREVIOUS TRACIN07/23/2016 09.55.11 DOCTOR: Reno Matthews Interpretating Date/Time 07/24/2016 20:33:19
== END 2016-07-24 18:00 | disposition home or self-care (01) ==
LOC: NEPE 08:43 → NEDA 11:25 → INTOOBSV 11:25 → NEPGCP 13:50
PROVIDERS: ADMIT Hospitalist; ATTEND Hospitalist
DX: R10.13 Epigastric pain (principal); R94.31 Abnormal electrocardiogram [ECG] [EKG]; F10.10 Alcohol abuse, uncomplicated; K21.9 Gastro-esophageal reflux disease without esophagitis; F17.200 Nicotine dependence, unspecified, uncomplicated; M19.90 Unspecified osteoarthritis, unspecified site; F32.9 Major depressive disorder, single episode, unspecified; Z87.19 Personal history of other diseases of the digestive system
CPT/HCPCS: 74176; 76705; 78452; 80048; 80053; 81001; 82550; 83690; 84484; 85025; 85027; 85610; 85730; 93005; 93017; 93306; 96361; 96374; 96375; A9502; C9113; G0378; J1644; J2270; J2405; J2785; J7030

== ENCOUNTER 2016-08-21 12:08 | Emergency (ER) | payer SELFPAY ==
[~2016-08-21] VITALS: Ht 167.6 cm; Wt 66.0 kg
[~2016-08-21 12:08] MED LIST: HYDR-3583 PO; VITA100T2 PO; ZANT150T2 PO
[2016-08-21 12:14] VITALS: BP 100/64; PULSE 109; RESP 16; TEMP 97.9; O2SAT 97
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
[2016-08-21 14:14] VITALS: BP 128/90; PULSE 94; RESP 18; O2SAT 95
[2016-08-21] MEDS ORDERED: SODIUM CHLOR 0.9% 1000 ML INJ 1,000 ML IV SCH (14:55)
[2016-08-21] MEDS ORDERED: PANTOPRAZOLE SODIUM 40 MG VIAL IVP ONE (15:00)
[2016-08-21] MEDS ORDERED: SODIUM CHLORIDE 0.9% FLUSH 10 ML FLUSH IV FLUSH PRN (15:00)
[2016-08-21] MEDS ORDERED: KETOROLAC TROMETHAMINE 30 MG/ML (IVP) VIAL IV PUSH ONE (15:00)
[2016-08-21] MEDS ORDERED: ALUMINUM/MAGNESIUM/SIMETH 30 ML CUP PO ONE (15:00)
[2016-08-21] MEDS ORDERED: LIDOCAINE VISCOUS 2% SOLN 15 ML UDC PO ONE (15:00)
[2016-08-21 15:16] VITALS: RESP 18; O2SAT 96
[2016-08-21 15:32] LABS: AUTOMATED NEUTROPHIL # 8.5 TH/MM3 (1.8-7.7); BASOPHIL # 0.1 TH/MM3 (0-0.2); BASOPHIL % 0.9 % (0.0-2.0); EOSINOPHIL # 0.1 TH/MM3 (0-0.4); EOSINOPHIL % 0.8 % (0.0-4.0); HEMATOCRIT 45.4 % (39.0-51.0); HEMO FLAGS DIFF FINAL; LYMPH % 19.6 % (9.0-44.0); LYMPHOCYTE # 2.3 TH/MM3 (1.0-4.8); MEAN CELL VOLUME 94.4 FL (80.0-100.0); MEAN CORPUSCULAR HEMOGLOBIN 32.1 PG (27.0-34.0); MONO % 6.4 % (0.0-8.0); NEUT % 72.3 % (16.0-70.0); PLATELET COUNT 265 TH/MM3 (150-450); RED BLOOD COUNT 4.81 MIL/MM3 (4.50-5.90); RED CELL DISTRIBUTION WIDTH 14.7 % (11.6-17.2); WHITE BLOOD COUNT 11.8 TH/MM3 (4.0-11.0)
[2016-08-21 15:45] LABS: APTT (PATIENT) 26.1 SEC (24.3-30.1); INTERNATIONAL NORMALIZED RATIO 0.9 RATIO; PROTHROMBIN TIME - PATIENT 9.7 SEC (9.8-11.6)
[2016-08-21 15:49] LABS: ANION GAP 12 MEQ/L (5-15); AST (GOT) 52 U/L (15-37); BICARBONATE 22.7 MEQ/L (21.0-32.0); BLOOD UREA NITROGEN 9 MG/DL (7-18); CHLORIDE 104 MEQ/L (98-107); GLOMERULAR FILTRATION RATE 119 ML/MIN (>89); POTASSIUM 4.2 MEQ/L (3.5-5.1); SODIUM (NA) 139 MEQ/L (136-145)
[2016-08-21 15:52] LABS: BLOOD, URINE TRACE (NEG); COMMENT (UR) CULT NOT INDICATED; CULTURE IF INDICATED CULT NOT INDICATED; GLUCOSE,URINE NEG (NEG); KETONE, URINE NEG (NEG); NITRITE,URINE NEG (NEG); PH, URINE 5.5 (5.0-8.5); URINE COLOR YELLOW (YELLW/STRAW)
[2016-08-21 15:52] LABS: ALKALINE PHOSPHATASE 81 U/L (45-117); ALT (GPT) 30 U/L (12-78); TOTAL BILIRUBIN ADULT 0.3 MG/DL (0.2-1.0)
--- NOTE | 2016-08-21 16:09 | RADRPT ---
EXAM DATE/TIME: 08/21/2016 15:49 [facility] COMPARISON: No previous studies available for comparison. INDICATIONS : Posterior head injury. RADIATION DOSE: 37.13 CTDIvol (mGy) MEDICAL HISTORY : None SURGICAL HISTORY : None. ENCOUNTER: Initial ACUITY: 1 day PAIN SCALE: 10/10 LOCATION: Posterior and inferior region of head. TECHNIQUE: Multiple contiguous axial images were obtained of the head. Using automated exposure control and adj ustment of the mA and/or kV according to patient size, radiation dose was kept as low as reasonably a chievable to obtain optimal diagnostic quality images. FINDINGS: There is no acute infarct, acute hemorrhage, mass effect or extra-axial fluid collections. The ventr icles, sulci and cisterns are normal in size, shape and position for the patient's age. There is comp lete opacification of the left frontal sinus with marked thinning and erosion of the posterior wall o f the left frontal sinus. Differential diagnosis includes mucocele or sinus neoplasm. There is also complete opacification of the right maxillary sinus without erosion of the soto of the right maxill nilam sinus. Mild mucosal thickening is noted involving the right frontal sinus and ethmoid air cells bilaterally. Old fractures of the nasal bones are noted. CONCLUSION: 1. No acute intracranial abnormality. 2. Complete opacification of the left frontal sinus with marked thinning/erosion of the posterior wal l of the left frontal sinus. The findings raise the possibility of mucocele or sinus neoplasm. Clini yosi correlation is recommended. 3. Opacification of the right maxillary sinus without erosive changes of the soto. 4. Mild mucosal thickening involving the right frontal sinus and bilateral ethmoid air cells. 5. Old fractures involving the nasal bones. Mendoza Holden MD on August 21, 2016 at 15:59 Board Certified Radiologist. This report was verified electronically.
[2016-08-21] MEDS ORDERED: OMEP40CA2 PO (16:16)
--- NOTE | 2016-08-22 20:33 | EKG ---
Date Performed: 08/21/2016 Time Performed: 15:37:54 PTAGE: 55 years EKG: Sinus rhythm Possible SEPTAL MYOCARDIAL INFARCTION Compared to prior tracing no significant change ABNORMAL ECG PREVIOUS TRACING : 07/23/2016 12.55 DOCTOR: Chris Andrade Interpretating Date/Time 08/22/2016 20:33:24
== END 2016-08-21 16:30 | disposition home or self-care (01) ==
LOC: NEPD 12:08
DX: R10.13 Epigastric pain (principal); K29.20 Alcoholic gastritis without bleeding; F10.20 Alcohol dependence, uncomplicated; R94.31 Abnormal electrocardiogram [ECG] [EKG]; F17.210 Nicotine dependence, cigarettes, uncomplicated; K85.90 Acute pancreatitis without necrosis or infection, unspecified; S09.90XA Unspecified injury of head, initial encounter; X58.XXXA Exposure to other specified factors, initial encounter
CPT/HCPCS: 70450; 80053; 81001; 83690; 85025; 85610; 85730; 93005; 96374; 96375; 99284; C9113; J1885; J7030

== ENCOUNTER 2018-01-09 11:03 | Inpatient (IN) ==
[2018-01-09] MEDS ORDERED: Sod Chloride 0.9% Inj 1,000 ML IV.SIG ONE (11:25)
[2018-01-09] MEDS ORDERED: Pantoprazole Inj 80 MG in Sodium Chlor 0.9% Inj 50 ML IV.SIG ONE (11:25)
[2018-01-09] MEDS ORDERED: Morphine Inj 4 MG/ML Vial IV.PUSH ONE (11:27)
--- NOTE | 2018-01-09 11:29 | ED ---
HPI General Chief complaint: GI Bleed Stated complaint: GI complaint Time Seen by Provider: 01/09/18 11:14 Source: patient and RN notes reviewed Mode of arrival: EMS Limitations: no limitations History of Present Illness HPI Narrative: 57-year-old male presents to the emergency department via EMS for evaluation of black and tarry stools with dark red blood for approximately 1 week. He also reports worsening epigastric abdominal pain for the past 2 weeks. He states that he always has epigastric abdominal pain, but has become severe in the past 2 weeks. Patient reports weakness and dizziness. Patient states that his epigastric abdominal pain is "20 out of 10". Patient states that he has no chronic medical problems and takes no prescribed medications. He does admit to drinking alcohol, at least 16 beers daily for "as long as I can remember". He denies taking anti-inflammatories. He is not on anticoagulants and has no bleeding disorders. He also states that he has vomited several times with blood in his emesis. MD complaint: gross hematemesis and melena Onset (ago): week(s) (1) Pain Consistency: constant Severity: moderate Relieving factors: none Exacerbating factors: none Context: alcohol abuse Associated symptoms: abdominal pain, nausea, vomiting and weakness Related Data Home Medications Medication Instructions Recorded Confirmed No Known Home Medications 01/09/18 01/09/18 Allergies Allergy/AdvReac Type Severity Reaction Status Date / Time No Known Allergies Allergy Unverified 01/09/18 11:12 Review of Systems ROS: all other systems reviewed are negative PMFSH Medical History Medical History Alcohol abuse (Acute) Anemia (Acute) Pancreatitis (Acute) Patient denies significant medical history (Acute) Tobacco abuse (Acute) Family History Family History Other Family history normal Social History Social History Substance History: No History of Abuse Second Hand Smoke Exposure: Yes Smoking Status: Current every day smoker Tobacco Type: Cigarettes How Often Do You Have a Drink Containing Alcohol: 4 or more times a week Recent Travel in [facility] within the Last 8 Weeks: No Recent Out of Country Travel within the Last 8 Weeks: No Exam Narrative Exam Narrative: GENERAL: Well-nourished, well-developed pale male patient, afebrile. Patient has strong smell of alcohol on his breath SKIN: Focused skin assessment warm/dry. HEAD: Normocephalic. Atraumatic EYES: No scleral icterus. No injection or drainage. NECK: Supple, trachea midline. No JVD or lymphadenopathy. CARDIOVASCULAR: Regular rate and rhythm without murmurs, gallops, or rubs. Bilateral radial and pedal pulses are 2+ RESPIRATORY: Breath sounds equal bilaterally. No accessory muscle use. Lung sounds are clear to auscultation GASTROINTESTINAL: Abdomen soft and nondistended. He has diffuse tenderness to palpation, worse in the epigastric region MUSCULOSKELETAL: No cyanosis, or edema. BACK: No obvious deformity. No CVA tenderness. RECTAL EXAM: No masses or tenderness, stool is dark and tarry. Grossly Hemoccult positive. This exam was done with MANOLO Cr, at bedside. Procedures Hemaprompt Stool Procedural Steps Taken: specimen placed in appropriate test area and developer placed on specimen and control areas Hemaprompt Stool Result: positive Course Initial Documented Vital Signs Temperature 97.5 F L 01/09/18 11:09 Pulse Rate 100 H 01/09/18 11:09 Respiratory Rate 28 H 01/09/18 11:09 Blood Pressure 100/63 01/09/18 11:09 Pulse Oximetry 99 01/09/18 11:09 Last Documented Vital Signs Temperature 97.5 F L 01/09/18 11:09 Pulse Rate 90 01/09/18 13:07 Respiratory Rate 19 01/09/18 13:07 Blood Pressure 97/60 L 01/09/18 13:07 Pulse Oximetry 97 01/09/18 14:37 Medical Decision Making MDM Narrative Medical decision making narrative: 57-year-old male presents to the emergency department for evaluation of rectal bleeding and abdominal pain. He has history of alcohol abuse. IV access obtained. EKG, CBC, CMP, lipase, magnesium , troponin, alcohol level, PTT, PT/INR, type and screen, chest x-ray, CT abdomen /pelvis with IV contrast ordered and pending. Patient is given normal saline 1 L IV bolus, Protonix bolus with drip. Patient is given morphine 4 mg IV and Zofran 4 mg IV for pain and vomiting. EKG shows sinus rhythm, heart rate 99, no acute ST changes. CBC shows anemia with hemoglobin 6.4, hematocrit 18.8. CMP shows hypokalemia 3.2. Lipase is 494. Magnesium is 1.7. Troponin is 0.02. PTT is 22.6. PT/INR is 10.7/1.1. Chest x-ray shows the lungs are clear, multiple loose bodies overlying left shoulder, old healed right clavicle fracture. CT abdomen/pelvis shows large stool burden identified within an otherwise normal-appearing colon. No abnormal wall thickening is appreciated; Fatty infiltration of the liver. Patient is given 2 units PRBCs. Hospitalist is paged for admission. Dr. Narayan accepted admission. He would like 3 units PRBCs ordered. 1 additional unit is ordered per his request. Medical Screen Exam Complete: Yes Emergency Medical Condition: Yes Differential Diagnosis Differential Diagnosis: Esophageal varices versus Lolis-Adam tear versus lower GI bleed versus alcohol abuse Medical Records Medical records reviewed: Yes I reviewed the patient's medical records. Lab Data Result diagrams: 01/09/18 11:53 01/09/18 11:53 Lab Results 01/09/18 01/09/18 01/09/18 Range/Units 11:53 11:53 11:53 WBC 10.7 (4.0-11.0) th/mm3 RBC 1.86 L (4.50-5.90) mil/mm3 Hgb 6.4 L* (13.0-17.0) gm/dL Hct 18.8 L* (39.0-51.0) % MCV 100.9 H (80.0-100.0) fL MCH 34.3 H (27.0-34.0) pg MCHC 34.0 (32.0-36.0) % RDW 16.8 (11.6-17.2) % Plt Count 301 (150-450) th/mm3 MPV 7.1 (7.0-11.0) fL Prelim Diff (Auto) Slide review pending Neut % (Auto) 70.0 (16.0-70.0) % Lymph % (Auto) 15.0 (9.0-44.0) % [place] % (Auto) 14.1 H (0.0-8.0) % Eos % (Auto) 0.3 (0.0-4.0) % Baso % (Auto) 0.6 (0.0-2.0) % Neut # (Auto) 7.5 (1.8-7.7) th/mm3 Lymph # (Auto) 1.6 (1.0-4.8) th/mm3 [place] # (Auto) 1.5 H (0.0-0.9) th/mm3 Eos # (Auto) 0.0 (0.0-0.4) th/mm3 Baso # (Auto) 0.1 (0.0-0.2) th/mm3 WBC Differential Manual diff final Seg Neuts % (Manual) 69 (16-70) % Band Neuts % (Manual) 1 (0-6) % Lymphocytes % (Manual) 20 (9-44) % Monocytes % (Manual) 5 (0-8) % Eosinophils % (Manual) 1 (0-4) % Basophils % (Manual) 2 (0-2) % Metamyelocytes % (Man) 1 (0-1) % Myelocytes % (Man) 1 H (0-0) % Abs Neuts (Manual) 7.7 (1.8-7.7) th/mm3 Differential Comment . Toxic Granulation 1+ H (None) Platelet Estimate Normal (Normal) Platelet Morphology Normal (Normal) PT 10.7 (9.8-11.6) sec INR 1.1 Ratio APTT 22.6 L (24.3-30.1) sec Sodium 135 L (136-145) meq/L Potassium 3.2 L (3.5-5.1) meq/L Chloride 101 (98-107) meq/L Carbon Dioxide 20.2 L (21.0-32.0) meq/L Anion Gap 14 (5-15) meq/L BUN 17 (7-18) mg/dL Creatinine 0.62 (0.60-1.30) mg/dL Estimated GFR Greater than 89 (>89) mL/min Random Glucose 99 (74-106) mg/dL Calcium 7.0 L* (8.5-10.1) mg/dL Prot Corrected Calcium 8.1 L (8.5-10.1) mg/dL Magnesium 1.7 (1.5-2.5) mg/dL Total Bilirubin 0.1 L (0.2-1.0) mg/dL AST 56 H (15-37) U/L ALT 52 (12-78) U/L Alkaline Phosphatase 46 (45-117) U/L Troponin I 0.02 (0.02-0.05) ng/mL Total Protein 5.1 L (6.4-8.2) g/dL Albumin 2.6 L (3.4-5.0) g/dL Lipase 494 H (73-393) U/L Serum Alcohol 243 H (0-5) mg/dL Blood Type Blood Type Recheck Antibody Screen 01/09/18 Range/Units 11:53 WBC (4.0-11.0) th/mm3 RBC (4.50-5.90) mil/mm3 Hgb (13.0-17.0) gm/dL Hct (39.0-51.0) % MCV (80.0-100.0) fL MCH (27.0-34.0) pg MCHC (32.0-36.0) % RDW (11.6-17.2) % Plt Count (150-450) th/mm3 MPV (7.0-11.0) fL Prelim Diff (Auto) Neut % (Auto) (16.0-70.0) % Lymph % (Auto) (9.0-44.0) % [place] % (Auto) (0.0-8.0) % Eos % (Auto) (0.0-4.0) % Baso % (Auto) (0.0-2.0) % Neut # (Auto) (1.8-7.7) th/mm3 Lymph # (Auto) (1.0-4.8) th/mm3 [place] # (Auto) (0.0-0.9) th/mm3 Eos # (Auto) (0.0-0.4) th/mm3 Baso # (Auto) (0.0-0.2) th/mm3 WBC Differential Seg Neuts % (Manual) (16-70) % Band Neuts % (Manual) (0-6) % Lymphocytes % (Manual) (9-44) % Monocytes % (Manual) (0-8) % Eosinophils % (Manual) (0-4) % Basophils % (Manual) (0-2) % Metamyelocytes % (Man) (0-1) % Myelocytes % (Man) (0-0) % Abs Neuts (Manual) (1.8-7.7) th/mm3 Differential Comment Toxic Granulation (None) Platelet Estimate (Normal) Platelet Morphology (Normal) PT (9.8-11.6) sec INR Ratio APTT (24.3-30.1) sec Sodium (136-145) meq/L Potassium (3.5-5.1) meq/L Chloride (98-107) meq/L Carbon Dioxide (21.0-32.0) meq/L Anion Gap (5-15) meq/L BUN (7-18) mg/dL Creatinine (0.60-1.30) mg/dL Estimated GFR (>89) mL/min Random Glucose (74-106) mg/dL Calcium (8.5-10.1) mg/dL Prot Corrected Calcium (8.5-10.1) mg/dL Magnesium (1.5-2.5) mg/dL Total Bilirubin (0.2-1.0) mg/dL AST (15-37) U/L ALT (12-78) U/L Alkaline Phosphatase (45-117) U/L Troponin I (0.02-0.05) ng/mL Total Protein (6.4-8.2) g/dL Albumin (3.4-5.0) g/dL Lipase (73-393) U/L Serum Alcohol (0-5) mg/dL Blood Type A Positive Blood Type Recheck Required Antibody Screen Negative Imaging Data Radiologist's impression: Abdomen/Pelvis CT 01/09/18 11:25 CONCLUSION: 1. Large stool burden identified within an otherwise normal-appearing colon. No abnormal wall thickening is appreciated. 2. Fatty infiltration of the liver. Chest X-Ray 01/09/18 11:25 CONCLUSION: Lungs are clear. Multiple loose bodies overlying left shoulder. Old healed right clavicle fracture. Discharge Plan Discharge Disposition Patient Disposition: 30 Still Patient Discharge Details Diagnosis: GI bleed, Alcohol abuse Physicians Team ED Provider: Joselito Barriga ED Midlevel Provider: Ирина Vasquez Primary Care Provider: Primary Care Radha Fontaine Attending Provider: Pop Narayan Status ED Status: Admitted Patient
--- NOTE | 2018-01-09 11:52 | XR ---
EXAM DATE: 01/09/2018 11:50 AM EDT AGE/SEX: 57 years / Male INDICATIONS: Weakness. Patient being seen for a GI bleed. CLINICAL DATA: This is the patient's initial encounter. Patient reports that signs and symptoms have been present for 1 week and indicates a pain score of 4/10. MEDICAL/SURGICAL HISTORY: None. None. COMPARISON: No prior exams available for comparison. FINDINGS: A single AP view of the chest demonstrates the lungs to be symmetrically aerated without evidence of mass, infiltrate or effusion. The cardiomediastinal contours are unremarkable. Severe osteoarthritis of both shoulders with multiple loose bodies overlying the left shoulder CONCLUSION: Lungs are clear. Multiple loose bodies overlying left shoulder. Old healed right clavicle fracture. Electronically signed by: Dmitry Pollock MD 01/09/2018 11:51 AM EDT
[2018-01-09 12:28] LABS: Baso # (Auto) 0.1 th/mm3 (0.0-0.2); Baso % (Auto) 0.6 % (0.0-2.0); Eos % (Auto) 0.3 % (0.0-4.0); Lymph # (Auto) 1.6 th/mm3 (1.0-4.8); Mean Corpuscular Hemoglobin 34.3 pg (27.0-34.0); Mean Corpuscular Volume 100.9 fL (80.0-100.0); Mean Platelet Volume 7.1 fL (7.0-11.0); Mono # (Auto) 1.5 th/mm3 (0.0-0.9); Mono % (Auto) 14.1 % (0.0-8.0); Neut # (Auto) 7.5 th/mm3 (1.8-7.7); Platelet Count 301 th/mm3 (150-450); Red Blood Count 1.86 mil/mm3 (4.50-5.90); Red Cell Distribution Width 16.8 % (11.6-17.2); White Blood Count 10.7 th/mm3 (4.0-11.0)
[2018-01-09 12:36] LABS: Hemoglobin 6.4 gm/dL (13.0-17.0)
[2018-01-09 12:37] LABS: Hematocrit 18.8 % (39.0-51.0)
[2018-01-09 12:39] LABS: Activated Partial Thrombo Time 22.6 sec (24.3-30.1); INR 1.1 Ratio; Prothrombin Time 10.7 sec (9.8-11.6)
[2018-01-09] MEDS: Pantoprazole Inj 80 MG in Sodium Chlor 0.9% Inj 100 ML IV.CONT SCH (12:45)
[2018-01-09 12:58] LABS: Alanine Aminotransferase 52 U/L (12-78); Albumin 2.6 g/dL (3.4-5.0); Alkaline Phosphatase 46 U/L (45-117); Anion Gap 14 meq/L (5-15); Aspartate Aminotransferase 56 U/L (15-37); Blood Urea Nitrogen 17 mg/dL (7-18); Carbon Dioxide 20.2 meq/L (21.0-32.0); Chloride 101 meq/L (98-107); Glomerular Filtration Rate Greater Than 89 mL/min (>89); Glucose,Random 99 mg/dL (74-106); Lipase 494 U/L (73-393); Magnesium 1.7 mg/dL (1.5-2.5); Potassium 3.2 meq/L (3.5-5.1); Sodium 135 meq/L (136-145); Total Protein 5.1 g/dL (6.4-8.2); Troponin I 0.02 ng/mL (0.02-0.05)
[2018-01-09 13:09] LABS: Eosinophils 1 % (0-4); Lymphocytes 20 % (9-44); Metamyelocytes 1 % (0-1); Monocytes 5 % (0-8); Myelocytes 1 % (0-0)
[2018-01-09 13:10] LABS: Platelet Estimate Normal (Normal); Platelet Morphology Normal (Normal); Toxic Granulation 1+
[2018-01-09 13:12] LABS: Alcohol 243 mg/dL (0-5)
[2018-01-09] MEDS ORDERED: Haloperidol Inj 5 MG/ML Ampul IV.PUSH PRN (13:44)
[2018-01-09] MEDS ORDERED: Naloxone Inj 0.4 MG/ML Vial IV.PUSH PRN (13:47)
[2018-01-09] MEDS ORDERED: Morphine Inj 4 MG/ML Vial IV.PUSH PRN (13:47)
--- NOTE | 2018-01-09 14:51 | CT ---
EXAM DATE: 01/09/2018 2:35 PM EDT AGE/SEX: 57 years / Male INDICATIONS: Epigastric pain with blood in stool. CLINICAL DATA: This is the patient's initial encounter. Patient reports that signs and symptoms have been present for 1 week and indicates a pain score of 10/10. MEDICAL/SURGICAL HISTORY: Pancreatitis. Gastrointestinal bleed. None. ORAL CONTRAST: No oral contrast ingested. RADIATION DOSE: 6.86 CTDI (mGy) COMPARISON: [facility] [place] W/O CONTRAST, 07/23/2016. [facility] [place]BD[place] - GALLBLADDER, . . TECHNIQUE: Multiple contiguous axial images were obtained through the abdomen and pelvis following b olus infusion of 95 ml Omnipaque 350 (iohexol) nonionic water-soluble contrast as a single exam dos e. No oral contrast ingested. Using automated exposure control and adjustment of the mA and/or kV ac cording to patient size, radiation dose was kept as low as reasonably achievable to obtain optimal di agnostic quality images. DICOM format image data is available electronically for review and comparis on. FINDINGS: Lower Lungs: The visualized lower lungs are clear. Liver: The liver has a homogeneous low density without space-occupying lesion. There is no dilation o f the biliary tree. Gallbladder is unremarkable. Spleen: Homogeneous density without enlargement. Pancreas: Unremarkable without mass or calcification. Kidneys: Normal in size and shape. No evidence of mass or hydronephrosis. Adrenal Glands: Unremarkable. Aorta: Scattered atherosclerosis. No evidence of aneurysm. Bowel/Mesentery: The bowel loops are grossly unremarkable. There is a large stool burden present. No abnormal wall thickening is seen. No diverticulosis. The cecum and sigmoid colon have a normal confi guration. Abdominal Wall: Intact. Retroperitoneum: No evidence of adenopathy in the retrocrural, para-aortic, or deep pelvic regions. Bladder: Contours are smooth. Reproductive Organs: No abnormal masses or calcifications seen. Inguinal: The inguinal region is unremarkable without evidence of adenopathy. Bony Structures: There are degenerative changes moderate in intensity seen throughout the thoracic s pine. Within the lumbar spine there is grade 1 anterolisthesis of L4 and L5 associated with severe di sc space narrowing and facet degenerative change. There is disc space narrowing and grade 1 anterolis thesis of L5 on S1 also associated with severe facet degenerative changes. CONCLUSION: 1. Large stool burden identified within an otherwise normal-appearing colon. No abnormal wall thicke uri is appreciated. 2. Fatty infiltration of the liver. Electronically signed by: Kaylee Knox MD 01/09/2018 2:50 PM EDT
--- NOTE | 2018-01-09 15:09 | P.HPIM ---
History of Present Illness Service: [facility] Primary Care Physician: No Primary Care Physician Chief Complaint: GI BLEEDING-BLACK STOOLS History of Present Illness: PATIENT IS A 57 YEAR OLD MALE WHO PRESENTED TO THE EMERGENCY DEPARTMENT AT [facility] BY EMS FOR EVALUATION OF BLACK AND TARRY STOOLS WITH SOME DARK RED BLOOD FOR THE PAST WEEK. HE HAS ALSO HAD WORSENING ABDOMINAL PAIN FOR AT LEAST THE PAST 2 WEEKS. She states that he chronically has epigastric abdominal pain but it is been worsening over the past several weeks. He also reports weakness and dizziness. At this epigastric and abdominal pain is 20 out of 10 patient states that he has no chronic medical problems and takes no prescribed medications he does admit to drinking alcohol at a minimum of 16 beers a day but probably drinks a lot more than that he states all of these have the alcohol percentage of 9%. He denies any Motrin, Aleve, ibuprofen, aspirin. He states she is not taking any medications at all. He states he is also had some vomiting several times with blood in his emesis patient is noted to have melena and hematemesis and noted to have a heme positive stool with black tarry stools patient denies using any magnesium products. Family history he denies any history of hypertension or diabetes in his mother or father that he knows of Patient drinks alcohol every day. And smokes at least a pack of cigarettes a day Inpatient Certification: I certify that the inpatient services were ordered in accordance with Medicare regulations governing the order. This includes certification that hospital inpatient services are reasonable and necessary and in the case of services not specified as inpatient-only under 42 CFR 419.22(n), that they are appropriately provided as inpatient services in accordance to with the 2-midnight benchmark under 43 CFR 412.3(e) Estimated Total Length of Stay (Days): 4 Plans for Post Hospital Care: Home Review of Systems All other systems reviewed negative except as stated in HPI [facility] - History History Provided By: Patient - Medical History Medical History: Medical History (Last Updated 01/09/18 @ 14:34 by Pop Narayan DO) Alcohol abuse Anemia Pancreatitis Patient denies significant medical history Tobacco abuse - Family History Family History: Family History (Last Updated 01/09/18 @ 14:34 by Pop Narayan DO) Other Family history normal - Social History I have reviewed the patient's Social History: Yes - Tobacco History Second Hand Smoke Exposure: Yes Tobacco Use In Past 30 Days: Yes Smoking Status: Current every day smoker Tobacco Type: Cigarettes - Alcohol History How Often Do You Have a Drink Containing Alcohol: 4 or more times a week - Substance Use History Substance History: No History of Abuse - Travel History History of Recent Travel: No Recent Travel in the [place] Within the Last 8 Weeks: No Recent Travel Out of the Country Within the Last 8 Weeks: No - Immunization History Tetanus Immunization: Unsure Hx Influenza Vaccine This Season: Unable to Assess Medications and Allergies Active Medications: Active Medications Clonidine HCl (Catapres) 0.1 mg PO Q6H PRN PRN Reason: HYPERTENSION Flumazenil (Romazecon Inj) 0.2 mg IV.PUSH Q1M PRN PRN Reason: OVERSEDATION Folic Acid (Folic Acid) 1 mg PO DAILY [facility] Stop: 01/15/18 08:59 Haloperidol Lactate (Haldol Inj) 1 mg IV.PUSH Q15M PRN PRN Reason: for severe agitation Pantoprazole Sodium 80 mg/ (Sodium Chloride) 100 mls @ 10 mls/hr IV.CONT CONT [facility] Last Admin: 01/09/18 12:45 Dose: 10 mls/hr Sodium Chloride (Ns Inj) 1,000 mls @ 100 mls/hr IV.CONT .Q10H [facility] Thiamine HCl 100 mg/ Sodium (Chloride) 101 mls @ 100 mls/hr IV.SIG DAILY [facility] Lorazepam (Ativan) 2 mg PO Q2H PRN PRN Reason: for CIWA 11-14 Lorazepam (Ativan Inj) 2 mg IV.PUSH Q2H PRN PRN Reason: for CIWA 11-14 Lorazepam (Ativan Inj) 2 mg IV.PUSH Q1H PRN PRN Reason: for CIWA 15-20 Lorazepam (Ativan Inj) 2 mg IV.PUSH Q15M PRN PRN Reason: for CIWA > 20 Lorazepam (Ativan Inj) 1 mg IV.PUSH Q4H PRN PRN Reason: for CIWA 8-10 Lorazepam (Ativan) 1 mg PO Q4H PRN PRN Reason: for CIWA 8-10 Morphine Sulfate (Morphine Inj) 2 mg IV.PUSH Q3H PRN PRN Reason: PAIN 3-5; IF UABLE TO TAKE PO Morphine Sulfate (Morphine Inj) 4 mg IV.PUSH Q3H PRN PRN Reason: PAIN 6-10;IF UNABLE TO TAKE PO Morphine Sulfate (Morphine Inj) 4 mg IV.PUSH Q3H PRN PRN Reason: BREAKTHROUGH PAIN Multivitamins/Minerals (Theragran-M) 1 tab PO DAILY [facility] Stop: 01/15/18 08:59 Naloxone HCl (Narcan Inj) 0.4 mg IV.PUSH UNSCH PRN PRN Reason: SEE LABEL COMMENTS Nicotine (Habitrol 14 Mg Patch.24 Hr) 1 patch T-DERMAL DAILY [facility] Ondansetron HCl (Zofran Inj) 4 mg IV.PUSH Q6H PRN PRN Reason: NAUSEA OR VOMITING Oxycodone HCl (Roxicodone) 5 mg PO Q4H PRN PRN Reason: PAIN SCALE 3 TO 5 Oxycodone/Acetaminophen (Percocet 10/325 Mg) 1 tab PO Q6H PRN PRN Reason: PAIN SCALE 6 TO 10 Patch Removal (Remove Old Patch) 1 each T-DERMAL DAILY [facility] Sodium Chloride (Ns Flush) 2 ml IV.FLUSH PRN PRN PRN Reason: FLUSH AFTER USING IV ACCESS Sodium Chloride (Ns Flush) 2 ml IV.FLUSH BID [facility] Sodium Chloride (Ns Flush) 2 ml IV.FLUSH UNSCH PRN PRN Reason: FLUSH AFTER USING IV ACCESS Thiamine HCl (Vitamin B1) 100 mg PO DAILY [facility] Allergies Allergy/AdvReac Type Severity Reaction Status Date / Time No Known Allergies Allergy Unverified 01/09/18 11:12 Home Medications Medication Instructions Recorded Confirmed Type No Known Home Medications 01/09/18 01/09/18 History Exam Vital signs: Vital Signs 01/09/18 11:09 01/09/18 12:28 01/09/18 13:07 Temperature 97.5 F L Pulse Rate 100 H 90 Respiratory Rate 28 H 19 Blood Pressure 100/63 97/60 L Pulse Oximetry 99 97 95 Intake & Output 01/08/18 01/09/18 01/09/18 18:59 06:59 18:59 Intake Total 1050 / 1050 Balance 1050 / 1050 Weight 65.771 kg Intake: IV 1050 / 1050 Protonix Inj 80 MG In NS Inj 50 50 / 50 ML @ 600 mls/hr IV.SIG BOLUS ONE Rx#:[id number] NS Inj 1,000 ML @ Wide Open IV. 1000 / 1000 SIG BOLUS ONE Rx#:[id number] Narrative: GENERAL: Awake alert and oriented 3 talkative and cooperative thin appearing male SKIN: Warm and dry. HEAD: Atraumatic. Normocephalic. EYES: Pupils equal and round. No scleral icterus. No injection or drainage. EOMI ENT: No nasal bleeding or discharge. Mucous membranes pink and moist. Tongue is midline NECK: Trachea midline. No JVD. Supple CARDIOVASCULAR: Regular rate and rhythm. S1-S2 no S3 or S4 RESPIRATORY: No accessory muscle use. Clear to auscultation. Breath sounds equal bilaterally. GASTROINTESTINAL: Abdomen soft, non-tender, nondistended. Hepatic and splenic margins not palpable. MUSCULOSKELETAL: Extremities without clubbing, cyanosis, or edema. No obvious deformities. NEUROLOGICAL: Awake and alert. No obvious cranial nerve deficits. Motor grossly within normal limits. Five out of 5 muscle strength in the arms and legs. Normal speech. PSYCHIATRIC: Appropriate mood and affect; insight and judgment normal. Results - Labs CBC & Chem 7: 01/09/18 11:53 01/09/18 11:53 Labs: Short CBC 01/09/18 Range/Units 11:53 WBC 10.7 (4.0-11.0) th/mm3 Hgb 6.4 L* (13.0-17.0) gm/dL Hct 18.8 L* (39.0-51.0) % Plt Count 301 (150-450) th/mm3 BMP 01/09/18 11:53 Sodium 135 L Potassium 3.2 L Chloride 101 Carbon Dioxide 20.2 L BUN 17 Creatinine 0.62 Calcium 7.0 L* Cardiac Enzymes 01/09/18 Range/Units 11:53 Troponin I 0.02 (0.02-0.05) ng/mL Liver Function 01/09/18 Range/Units 11:53 Total Bilirubin 0.1 L (0.2-1.0) mg/dL AST 56 H (15-37) U/L ALT 52 (12-78) U/L Alkaline Phosphatase 46 (45-117) U/L Albumin 2.6 L (3.4-5.0) g/dL - Imaging Abdomen/Pelvis CT 01/09/18 11:25 CONCLUSION: 1. Large stool burden identified within an otherwise normal-appearing colon. No abnormal wall thickening is appreciated. 2. Fatty infiltration of the liver. Chest X-Ray 01/09/18 11:25 CONCLUSION: Lungs are clear. Multiple loose bodies overlying left shoulder. Old healed right clavicle fracture. Caprini VTE Risk Assessment Caprini VTE Risk Assessment: Moderate/High Risk (score >= 2) Caprini Risk Assessment Model: Point Value = 1 Point Value = 2 Point Value = 3 Point Value = 5 Age 41-60 Minor surgery BMI > 25 kg/m2 Swollen legs Varicose veins or History of unexplained or recurrent spontaneous Oral contraceptives or hormone replacement Sepsis (< 1 month) Serious lung disease, including pneumonia (< 1 month) Abnormal pulmonary function Acute myocardial infarction Congestive heart failure (< 1 month) History of inflammatory bowel disease Medical patient at bed rest Age 61-74 Arthroscopic surgery Major open surgery (> 45 min) Laparoscopic surgery (> 45 min) Malignancy Confined to bed (> 72 hours) Immobilizing plaster cast Central venous access Age >= 75 History of VTE Family history of VTE Factor V Leiden Prothrombin [id number] Lupus anticoagulant Anticardiolipin antibodies Elevated serum homocysteine Heparin-induced thrombocytopenia Other congenital or acquired thrombophilia Stroke (< 1 month) Elective arthroplasty Hip, pelvis, or leg fracture Acute spinal cord injury (< 1 month) Prophylaxis Regimen: Total Risk Factor Score Risk Level Prophylaxis Regimen 0-1 Low Early ambulation 2 Moderate Order ONE of the following: *Sequential Compression Device (SCD) *Heparin 5000 units SQ BID 3-4 Higher Order ONE of the following medications: *Heparin 5000 units SQ TID *Enoxaparin/Lovenox 40 mg SQ daily (WT < 150 kg, CrCl > 30 mL/min) *Enoxaparin/Lovenox 30 mg SQ daily (WT < 150 kg, CrCl > 10-29 mL/min) *Enoxaparin/Lovenox 30 mg SQ BID (WT < 150 kg, CrCl > 30 mL/min) AND/OR *Sequential Compression Device (SCD) 5 or more Highest Order ONE of the following medications: *Heparin 5000 units SQ TID (Preferred with Epidurals) *Enoxaparin/Lovenox 40 mg SQ daily (WT < 150 kg, CrCl > 30 mL/min) *Enoxaparin/Lovenox 30 mg SQ daily (WT < 150 kg, CrCl > 10-29 mL/min) *Enoxaparin/Lovenox 30 mg SQ BID (WT < 150 kg, CrCl > 30 mL/min) AND *Sequential Compression Device (SCD) Assessment and Plan - Plan Suspected upper GI bleed due to chronic alcoholism and alcohol abuse with anemia of 6.0 Suspect esophageal varices due to high alcoholic burden Continue on Protonix drip Keep n.p.o. Consult GI IV fluids Transfused 3 units packed red blood cells Every 6 hours CBCs Alcohol abuse/chronic alcoholism with beer Continue on CIWA protocol Ativan as needed Catapres as needed Multivitamin, thiamine, folic acid Normal saline Patient is expected to go THROUGH full-blown alcohol withdrawal so therefore will continue on CIWA protocol Hypokalemia will replace with IV potassium Possibly due to beer POTOMANIA Anemia we will transfuse 3 units packed red blood cells consult GI Hypocalcemia will recommend a diet in the future instead of just pure alcohol Hypo-magnesium will replace Elevated lipase mild pancreatitis due to chronic alcoholism Protein calorie malnourishment due to severe alcoholism Mild hyponatremia due to alcoholism and beer intake Code Status: FULL CODE Discussed Condition With: RN AND PT AND ER ICING COATER Discharge Planning: PENDING GI CLEARANCE AND IMPROVEMENT
[2018-01-09 15:38] LABS: Hematocrit 16.1 % (39.0-51.0); Hemoglobin 5.4 gm/dL (13.0-17.0)
[2018-01-09] MEDS: Sod Chloride 0.9% Inj 1,000 ML IV.CONT SCH (15:39)
[2018-01-09] MEDS ORDERED: Thiamine Inj 100 MG in Sodium Chlor 0.9% Inj 100 ML IV.SIG ONE (16:00)
[2018-01-09 16:26] LABS: Free T4 (Free Thyroxine) 0.84 ng/dL (0.76-1.46); Thyroid Stimulating Hormone 0.458 uIU/mL (0.358-3.740)
[2018-01-09] MEDS: oxyCODONE/Acetaminophen 10/325 Tablet PO PRN (17:20)
[2018-01-09 21:17] LABS: Hemoglobin 7.5 gm/dL (13.0-17.0)
[2018-01-09] MEDS: Potassium Chlor 20 mEq Premix 20 MEQ/100 ML PIGGYBACK IV.SIG SCH (21:24)
[2018-01-09] MEDS: Morphine Inj 4 MG/ML Vial IV.PUSH PRN (21:30)
[2018-01-10] MEDS ORDERED: Octreotide Inj 50 MCG/ML Vial IV.PUSH ONE
--- NOTE | 2018-01-10 00:31 | P.PNADD ---
Addendum to Inpatient Note Reason for Addendum: Additional Documentation Additional information: RIGOBERTO called and patient examined at 11:40 PM on 01/09/18. S: Upon arrival at patient room nurse noted that patient had evacuated significant amounts maroon stool, which covering bathroom surface and floor of patient's room. Patient complaining of continued abdominal pain, not significant worsened from earlier today. Denies CP, or SOB. Patient transfused 3 units of PRBCs following admission from ED. Hemoglobin increased to 7.4 from 5.4. O: Patient tachycardic up to 133. BP in 120s/70s. A/P: GI bleed in patient with hx of cirrhosis, likely esophageal varices -STAT H&H ordered -STAT CMP ordered -Place on continuous telemetry -Fluids: NS at 140mls/hr IV -Transfer to ICU -Spoke to Dr. Wilson about patient case, who agrees with plan and patient transfer to ICU
[2018-01-10 00:35] LABS: Mean Corpuscular HGB Conc 32.9 % (32.0-36.0); Mean Corpuscular Hemoglobin 31.8 pg (27.0-34.0); Mean Corpuscular Volume 96.8 fL (80.0-100.0); Mean Platelet Volume 7.8 fL (7.0-11.0); Platelet Count 198 th/mm3 (150-450); Red Cell Distribution Width 16.7 % (11.6-17.2); White Blood Count 11.5 th/mm3 (4.0-11.0)
[2018-01-10 00:48] LABS: Activated Partial Thrombo Time 23.1 sec (24.3-30.1); INR 1.1 Ratio; Prothrombin Time 11.5 sec (9.8-11.6)
[2018-01-10 00:50] LABS: Hematocrit 18.4 % (39.0-51.0)
[2018-01-10] MEDS ORDERED: Sodium Chlor 0.9% Inj 250 ML IV.SIG SCH ×2 (01:00→11:00)
--- NOTE | 2018-01-10 01:01 | P.CONCC ---
History of Present Illness Service: Critical Care Medicine Consult date: 01/10/18 Primary Care Provider: Radha Primary Care Physician Chief Complaint: GI BLEEDING-BLACK STOOLS History of Present Illness: 57 yo male with PMH of EtOH dependence who was admitted to [facility] due to GI bleeding. Patient tells me that he developed epigastric pain and melena bowel movements about a week ago. He states it was intermittent initially but today he states he has had melena BMs "all day" and pain has been "20 out of 10". According to notes from the emergency department and hospitalist, he had reported hematemesis. However now he denies hematemesis and states he never vomited. He denies previous issues with GI bleeding. He denies prior EGD or colonoscopy. Denies NSAIDs, antiplatelet, anticoagulant therapy. His Hgb was 6.4 then 5.4. He has received 3 units PRBC since admission and then Hgb was 7.5.. Normal platelet count. He has been on a Protonix drip. Jorge Escamilla was called after he had a large bloody BM. He was tachycardic in the 130s, normotensive. Stat labs have been obtained and he was transferred to [facility] with an pottery decorator consult. GI has been consulted. Hgb is 6. He is repeatedly requesting morphine. He has had a CT scan that showed normal colon, fatty infiltration of the liver. Review of Systems All other systems reviewed negative except as stated in HPI [facility] - History History Provided By: Patient - Medical History Medical History: Medical History (Last Reviewed 02/04/18 @ 00:46 by Barb Wilson MD) Alcohol abuse Anemia Pancreatitis Patient denies significant medical history Tobacco abuse - Family History Family History: Family History (Last Reviewed 02/04/18 @ 00:46 by Barb Wilson MD) Other Family history normal - Tobacco History Second Hand Smoke Exposure: Yes Tobacco Use In Past 30 Days: Yes Smoking Status: Current every day smoker Tobacco Type: Cigarettes - Alcohol History How Often Do You Have a Drink Containing Alcohol: 4 or more times a week - Substance Use History Substance History: No History of Abuse - Travel History History of Recent Travel: No Recent Travel in the [place] Within the Last 8 Weeks: No Recent Travel Out of the Country Within the Last 8 Weeks: No - Immunization History Tetanus Immunization: Unsure Hx Influenza Vaccine This Season: No Medications and Allergies Active Medications: Active Medications Clonidine HCl (Catapres) 0.1 mg PO Q6H PRN PRN Reason: SBP>160 OR DBP >95 Flumazenil (Romazecon Inj) 0.2 mg IV.PUSH Q1M PRN PRN Reason: OVERSEDATION Folic Acid (Folic Acid) 1 mg PO DAILY [facility] Stop: 01/15/18 08:59 Haloperidol Lactate (Haldol Inj) 1 mg IV.PUSH Q15M PRN PRN Reason: for severe agitation Pantoprazole Sodium 80 mg/ (Sodium Chloride) 100 mls @ 10 mls/hr IV.CONT CONT [facility] Last Admin: 01/09/18 12:45 Dose: 10 mls/hr Sodium Chloride (Ns Inj) 1,000 mls @ 140 mls/hr IV.CONT .Q7H9M [facility] Last Admin: 01/09/18 15:39 Dose: 100 mls/hr Octreotide Acetate 500 mcg/ (Sodium Chloride) 500.5 mls @ 25.02 mls/hr IV.CONT .Q20H1M [facility] Sodium Chloride (Ns Inj) 250 mls @ 15 mls/hr IV.SIG ONCE [facility] Stop: 01/10/18 17:39 Lorazepam (Ativan) 2 mg PO Q2H PRN PRN Reason: for CIWA 11-14 Lorazepam (Ativan Inj) 2 mg IV.PUSH Q2H PRN PRN Reason: for CIWA 11-14 Lorazepam (Ativan Inj) 2 mg IV.PUSH Q1H PRN PRN Reason: for CIWA 15-20 Lorazepam (Ativan Inj) 2 mg IV.PUSH Q15M PRN PRN Reason: for CIWA > 20 Lorazepam (Ativan Inj) 1 mg IV.PUSH Q4H PRN PRN Reason: for CIWA 8-10 Lorazepam (Ativan) 1 mg PO Q4H PRN PRN Reason: for CIWA 8-10 Morphine Sulfate (Morphine Inj) 2 mg IV.PUSH Q3H PRN PRN Reason: PAIN 3-5; IF UABLE TO TAKE PO Morphine Sulfate (Morphine Inj) 4 mg IV.PUSH Q3H PRN PRN Reason: PAIN 6-10;IF UNABLE TO TAKE PO Last Admin: 01/09/18 21:30 Dose: 4 mg Morphine Sulfate (Morphine Inj) 4 mg IV.PUSH Q3H PRN PRN Reason: BREAKTHROUGH PAIN Multivitamins/Minerals (Theragran-M) 1 tab PO DAILY [facility] Stop: 01/15/18 08:59 Naloxone HCl (Narcan Inj) 0.4 mg IV.PUSH UNSCH PRN PRN Reason: SEE LABEL COMMENTS Nicotine (Habitrol 14 Mg Patch.24 Hr) 1 patch T-DERMAL DAILY [facility] Last Admin: 01/09/18 15:39 Dose: 1 patch Ondansetron HCl (Zofran Inj) 4 mg IV.PUSH Q6H PRN PRN Reason: NAUSEA OR VOMITING Oxycodone HCl (Roxicodone) 5 mg PO Q4H PRN PRN Reason: PAIN SCALE 3 TO 5 Oxycodone/Acetaminophen (Percocet 10/325 Mg) 1 tab PO Q6H PRN PRN Reason: PAIN SCALE 6 TO 10 Last Admin: 01/09/18 17:20 Dose: 1 tab Patch Removal (Remove Old Patch) 1 each T-DERMAL DAILY [facility] Sodium Chloride (Ns Flush) 2 ml IV.FLUSH BID [facility] Last Admin: 01/09/18 21:24 Dose: 2 ml Sodium Chloride (Ns Flush) 2 ml IV.FLUSH UNSCH PRN PRN Reason: FLUSH AFTER USING IV ACCESS Thiamine HCl (Vitamin B1) 100 mg PO DAILY [facility] Allergies Allergy/AdvReac Type Severity Reaction Status Date / Time No Known Allergies Allergy Unverified 01/09/18 11:12 Home Medications Medication Instructions Recorded Confirmed Type No Known Home Medications 01/09/18 01/09/18 History Physical Exam Vital signs: Vital Signs 01/09/18 11:09 01/09/18 12:28 01/09/18 13:07 Temperature 97.5 F L Pulse Rate 100 H 90 Respiratory Rate 28 H 19 Blood Pressure 100/63 97/60 L Pulse Oximetry 99 97 95 01/09/18 14:37 01/09/18 15:52 01/09/18 15:59 Temperature 98.9 F 98.9 F Pulse Rate 109 H 107 H Respiratory Rate 21 16 Blood Pressure 94/56 L 94/56 L Pulse Oximetry 97 100 97 01/09/18 16:00 01/09/18 16:05 01/09/18 16:08 Temperature 98.9 F 98.6 F Pulse Rate 101 H 92 H 91 H Respiratory Rate 16 22 24 Blood Pressure 94/56 L 94/56 L 109/64 Pulse Oximetry 99 99 99 01/09/18 16:30 01/09/18 23:36 01/09/18 23:40 Temperature 98.9 F Pulse Rate 92 H Respiratory Rate 18 Blood Pressure 112/65 Pulse Oximetry 100 100 Intake & Output 01/09/18 01/09/18 01/10/18 06:59 18:59 06:59 Intake Total 1200 / 1200 Balance 1200 / 1200 Weight 65.77 kg Intake: IV 1050 / 1050 Protonix Inj 80 MG In NS Inj 50 50 / 50 ML @ 600 mls/hr IV.SIG BOLUS ONE Rx#:[id number] NS Inj 1,000 ML @ Wide Open IV. 1000 / 1000 SIG BOLUS ONE Rx#:[id number] Intake (Blood Product) Amt 150 / 150 Rbc As-3 Leukoreduced Unit 75 / 75 [id number] Rbc As-3 Leukoreduced Unit 75 / 75 [id number] Rbc As-3 Leukoreduced Unit 0 / 0 [id number] Other: # Voids 2 Date of Last Bowel Movement 01/09/18 01/09/18 # Bowel Movements 2 Weight On Admission 65.77 kg Narrative: GENERAL: Well-nourished, well-developed patient who is alert and sitting up in ISC bed. SKIN: Warm and dry. Telangiectasia noted right chest. HEAD: Atraumatic. Normocephalic. EYES: Pupils equal and round, 3 mm reactive. No scleral icterus. No injection or drainage. ENT: No nasal bleeding or discharge. Mucous membranes pink and moist. NECK: Trachea midline. No JVD. CARDIOVASCULAR: Tachycardic, regular, sinus tach on the monitor.. No murmurs rubs or gallops. RESPIRATORY: Breathing comfortably with no accessory muscle use. Clear to auscultation. Breath sounds equal bilaterally. GASTROINTESTINAL: Abdomen generally soft, some epigastric tenderness. No lower abdominal tenderness. No rebound or guarding. Bowel sounds are active. MUSCULOSKELETAL: Extremities without clubbing, cyanosis, or edema. Deformity noted of right mid clavicle. NEUROLOGICAL: Awake and alert. Oriented to person, place, year. No obvious cranial nerve deficits. Motor grossly within normal limits. Normal speech. Assessment and Plan - Problem List (1) Acute blood loss anemia Code(s): D62 - Acute posthemorrhagic anemia Status: Acute (2) GI bleed Code(s): K92.2 - Gastrointestinal hemorrhage, unspecified Status: Acute (3) Alcohol abuse Code(s): F10.10 - Alcohol abuse, uncomplicated Status: Chronic (4) Fatty infiltration of liver Code(s): K76.0 - Fatty (change of) liver, not elsewhere classified Status: Chronic (5) Tobacco abuse Code(s): Z72.0 - Tobacco use Status: Chronic (6) Acute hyperglycemia Code(s): R73.9 - Hyperglycemia, unspecified Status: Acute - Assessment and Plan Plan: NEURO: Pain Morphine as needed EtOH dependence CIWA protocol Thiamine/MVI/folic acid. RESP: Tobacco abuse Tobacco cessation counseling discussed Has a nicotine patch in place. CV: Monitor hemodynamic GI: GI bleeding Fatty infiltration of the liver Protonix drip. Start octreotide for now given potential for varices. GI consult for EGD/colonoscopy FEN/RENAL: Monitor creatinine. Monitor electrolytes and replace as indicated. Received IV contrast 01/09. Avoid nephrotoxins. ID: Rocephin 1 g IV daily. Monitor for signs and symptoms of infection. HEME: Acute blood loss anemia Serial Hgb q6 hours. Transfuse 2 units packed red cells now. Check coags and fibrinogen. ENDO: Acute hyperglycemia Monitor bedside glucose every 6 hours and administer low-dose insulin sliding scale as indicated PROPH: SCDs for DVT prophylaxis. Pharmacologic DVT prophylaxis is contraindicated due to acute bleeding. ACCESS: Peripheral IV Level 3 consult (2) GI bleed Qualifiers: GI bleed type/associated pathology: unspecified gastrointestinal hemorrhage type Qualified Code(s): K92.2 - Gastrointestinal hemorrhage, unspecified
[2018-01-10] MEDS: Morphine Inj 4 MG/ML Vial IV.PUSH PRN ×2 (01:04→05:21)
[2018-01-10] MEDS: Potassium Chlor 20 mEq Premix 20 MEQ/100 ML PIGGYBACK IV.SIG SCH ×3 (01:05→05:22)
[2018-01-10 01:15] LABS: Alanine Aminotransferase 32 U/L (12-78); Albumin 1.8 g/dL (3.4-5.0); Alkaline Phosphatase 33 U/L (45-117); Anion Gap 13 meq/L (5-15); Aspartate Aminotransferase 31 U/L (15-37); Blood Urea Nitrogen 20 mg/dL (7-18); Calcium 6.8 mg/dL (8.5-10.1); Carbon Dioxide 19.4 meq/L (21.0-32.0); Chloride 111 meq/L (98-107); Glomerular Filtration Rate Greater Than 89 mL/min (>89); Glucose,Random 167 mg/dL (74-106); Potassium 3.8 meq/L (3.5-5.1); Sodium 143 meq/L (136-145); Total Protein 3.8 g/dL (6.4-8.2)
[2018-01-10] MEDS ORDERED: Dextrose 50% in Water 50 ML Vial IV.PUSH PRN (01:22)
[2018-01-10 01:32] LABS: Hematocrit 18.2 % (39.0-51.0); Hemoglobin 6.2 gm/dL (13.0-17.0)
[2018-01-10] MEDS: Octreotide Inj 500 MCG in Sodium Chlor 0.9% Inj 500 ML IV.CONT SCH ×2 (02:29→21:10)
[2018-01-10] MEDS: Thiamine Inj 100 MG in Sodium Chlor 0.9% Inj 100 ML IV.SIG SCH (03:19)
[2018-01-10] MEDS: Pantoprazole Inj 80 MG in Sodium Chlor 0.9% Inj 100 ML IV.CONT SCH ×2 (03:22→16:04)
[2018-01-10] MEDS: Sod Chloride 0.9% Inj 1,000 ML IV.CONT SCH ×3 (07:47→19:03)
[2018-01-10] MEDS ORDERED: Folic Acid 1 MG Tablet PO SCH (09:00)
[2018-01-10 09:06] LABS: Hematocrit 21.3 % (39.0-51.0); Hemoglobin 7.5 gm/dL (13.0-17.0)
[2018-01-10] MEDS: Insulin NovoLOG Aspart Correctional Sugar Inj SQ SCH ×4 (09:37→21:10)
[2018-01-10] MEDS: Multivitamin/Minerals Therapeutic Tablet PO SCH (10:17)
[2018-01-10] MEDS: Folic Acid 1 MG Tablet PO SCH (10:17)
[2018-01-10 11:29] LABS: Baso # (Auto) 0.1 th/mm3 (0.0-0.2); Baso % (Auto) 0.7 % (0.0-2.0); Eos # (Auto) 0.1 th/mm3 (0.0-0.4); Eos % (Auto) 0.8 % (0.0-4.0); Hematocrit 24.2 % (39.0-51.0); Hemoglobin 8.2 gm/dL (13.0-17.0); Lymph # (Auto) 1.8 th/mm3 (1.0-4.8); Lymph % (Auto) 17.1 % (9.0-44.0); Mean Corpuscular Hemoglobin 31.5 pg (27.0-34.0); Mean Corpuscular Volume 92.6 fL (80.0-100.0); Mean Platelet Volume 8.3 fL (7.0-11.0); Mono # (Auto) 1.6 th/mm3 (0.0-0.9); Neut # (Auto) 7.1 th/mm3 (1.8-7.7); Neut % (Auto) 66.4 % (16.0-70.0); Platelet Count 204 th/mm3 (150-450); Red Blood Count 2.61 mil/mm3 (4.50-5.90); Red Cell Distribution Width 16.5 % (11.6-17.2); White Blood Count 10.6 th/mm3 (4.0-11.0)
[2018-01-10 11:35] LABS: Hemoglobin A1c 4.4 % (4.3-6.0)
[2018-01-10 11:36] LABS: Prothrombin Time 10.4 sec (9.8-11.6)
[2018-01-10 11:44] LABS: Amylase 42 U/L (25-115); Lipase 119 U/L (73-393)
[2018-01-10 11:54] LABS: Alanine Aminotransferase 34 U/L (12-78); Albumin 2.2 g/dL (3.4-5.0); Alkaline Phosphatase 39 U/L (45-117); Anion Gap 6 meq/L (5-15); Aspartate Aminotransferase 28 U/L (15-37); Blood Urea Nitrogen 22 mg/dL (7-18); Calcium 7.3 mg/dL (8.5-10.1); Carbon Dioxide 23.3 meq/L (21.0-32.0); Chloride 112 meq/L (98-107); Glomerular Filtration Rate Greater Than 89 mL/min (>89); Glucose,Random 123 mg/dL (74-106); Magnesium 1.9 mg/dL (1.5-2.5); Phosphorus 2.7 mg/dL (2.5-4.9); Potassium 4.7 meq/L (3.5-5.1); Sodium 141 meq/L (136-145); Total Protein 4.5 g/dL (6.4-8.2)
[2018-01-10 12:03] LABS: Lymphocytes 13 % (9-44); Metamyelocytes 2 % (0-1); Monocytes 5 % (0-8); Myelocytes 1 % (0-0)
[2018-01-10 12:04] LABS: Platelet Estimate Normal (Normal); Platelet Morphology Normal (Normal)
--- NOTE | 2018-01-10 12:59 | ECG ---
Date Performed: 01/09/2018 Time Performed: 12:02:39 PTAGE: 57 years EKG: Sinus rhythm NORMAL ECG PREVIOUS TRACING : 08/21/2016 15.37 Since the previous tracing, no significant change noted DOCTOR: Silvio Lima Interpretating Date/Time 01/10/2018 12:59:01
[2018-01-10] MEDS: Morphine Sulfate Inj 2 MG/ML Vial IV.PUSH PRN (13:04)
--- NOTE | 2018-01-10 14:10 | GIPROC ---
[facility] [address] [facility]. [facility], [id number] EGD PROCEDURE REPORT EXAM DATE: 01/10/2018 PATIENT NAME: Ascencion Patel MR #: [id number] BIRTHDATE: 1960 ATTENDING: Jac Barreto MD ORDER #: [id number] PROGRAM TRAINER: Jimenez Rosen and Migdalia Richard STATUS: inpatient INDICATIONS: The patient is a 57 yr old male here for an EGD due to hematemesis and hematochezia PROCEDURE PERFORMED: EGD w/ control of bleeding MEDICATIONS: None and Per Anesthesia. TOPICAL ANESTHETIC: none CONSENT: The patient understands the risks and benefits of the procedure and understands that these risks include, but are not limited to: sedation, allergic reaction, infection, perforation and/or bleeding. Alternative means of evaluation and treatment include, among others: physical exam, x-rays, and/or surgical intervention. The patient elects to proceed with this endoscopic procedure. medical equipment was checked for proper function. Hand hygiene and appropriate measures for infection prevention was taken. After the risks, benefits and alternatives of the procedure were thoroughly explained, Informed consent was verified, confirmed and timeout was successfully executed by the treatment team. The patient was anesthetized with topical anesthesia and the Pentax EG-[id number] endoscope was introduced through the mouth and advanced to the second portion of the duodenum. Retroflexion was performed and was normal The gastroscope was then slowly withdrawn and removed. ESOPHAGUS: The mucosa of the esophagus appeared normal. STOMACH: Multiple round erosions were found in the gastric antrum. Bipolar (BICAP) cautery with a 10Fr probe was applied to the site(s) for 10 secs using 0 hickey power. Light pressure was applied to the cautery site with complete hemostasis achieved. DUODENUM: A large non-bleeding non-bleeding, deep and round ulcer with surrounding edema and a pigmented spot was found in the 1st part of the duodenum. Submucosal injection of 5ml of epinephrine 1:10,000 was performed around the bleeding site with complete hemostasis achieved. ADVERSE EVENTS: There were no complications. IMPRESSIONS: 1. The esophagus appeared normal 2. Multiple erosions were found in the gastric antrum 3. Large non-bleeding ulcer was found in the 1st part of the duodenum; Submucosal injection of 5ml of epinephrine 1:10,000 was performed around the bleeding site, followed by Bipolar coagulation. 4. Retroflexion was performed and was normal RECOMMENDATIONS: 1. Continue PPI 2. Avoid NSAIDS 3. Helicobacter pylori status, with stool antigen 4. Clear liquid diet 5. Outpatient Colonoscopy. PATIENT CONDITION: stable DISPOSITION: Observation REPEAT EXAM: NONE Jac Barreto MD eSigned: Jac Barreto MD 01/10/2018 2:10 PM cc: PATIENT NAME: Ascencion Patel MR#: [id number]
--- NOTE | 2018-01-10 17:06 | MB ---
cc: Jac Barreto MD DATE: 01/10/2018 REASON FOR CONSULTATION: Gastrointestinal bleeding. HISTORY OF PRESENT ILLNESS: This is a 57-year-old male patient who presented to the emergency room for evaluation of black tarry stool and occasional fresh blood per rectum of 1 week duration. The patient also reported 2 weeks' history of epigastric pain that got worse over the last few days. The patient also reported episodes of weakness and dizziness. The patient denies using nonsteroidal anti-inflammatory drugs, but admits drinking alcohol heavily for the last decade. The patient drinks at least 16 beers daily for "as long as I can remember." The patient denies taking any blood thinners, anticoagulants, or antiplatelets. The patient also had 2 episodes of vomiting blood that was fresh in color. Since admission to the hospital, patient was hospitalized to the ICU. His initial hemoglobin was 7.5, went down overnight to 6. His electrolytes were slightly abnormal with a chloride of 111, bicarbonate of 19.4, creatinine of 0.7, BUN of 20, calcium 6.8. His ALT/AST were within normal limits. Alkaline phosphatase normal. Total bilirubin and albumin were low at 3.8 and 1.8. His INR is 1. He was stabilized, given blood transfusion in the ICU. GI consulted for management and possible endoscopic evaluation. REVIEW OF SYSTEMS: All 12-point review of systems were negative. FAMILY HISTORY: Noncontributory. SOCIAL HISTORY: The patient is a heavy alcohol drinker, smoker. Denies IV drug abuse. PAST MEDICAL HISTORY: Alcohol abuse, anemia, pancreatitis. MEDICATIONS: Actively: 1. Folic acid. 2. Haloperidol. 3. Pantoprazole. 4. Thiamine. 5. Lorazepam. 6. Morphine. 7. Nicotine. 8. Oxycodone. ALLERGIES: NO KNOWN DRUG ALLERGIES. PHYSICAL EXAMINATION: GENERAL: The patient appears to be pale, hemodynamically stable. HEAD AND NECK: Normocephalic, atraumatic. Pupils equal and reactive to light. NECK: Supple. No lymphadenopathy. No thyromegaly. LUNGS: Clear to auscultation bilaterally. No crackles or wheezes. CARDIOVASCULAR: Regular rate and rhythm. There are no murmurs. ABDOMEN: Soft, nontender. No hepatosplenomegaly. No palpable masses. EXTREMITIES: Normal pulses. No edema. NEUROLOGIC: Nonfocal. Cranial nerves 2-12 grossly intact. SKIN: No rashes. LABORATORY DATA: As mentioned in history of present illness. DIAGNOSTIC DATA: CT of the abdomen showed large stool burden within normal-appearing colon and fatty infiltration of the liver. ASSESSMENT: A 57-year-old male patient, who presented with: 1. Bleeding per rectum. Fresh blood, dark in color over the last 2 weeks. 2. Several episodes of hematemesis. 3. History of heavy alcohol use in the past. 4. No previous endoscopy or colonoscopy. 5. History of pancreatitis. 6. Severe anemia. PLAN: We will proceed with upper endoscopy today for controlling of his bleeding and possible banding if needed. Meanwhile, agree with ICU management with aggressive IV fluid hydration. Blood transfusion as needed. H and H proton pump inhibitor, simvastatin, and will proceed with endoscopy today. The procedure was explained to the patient including risks, benefits, and possible complications, and he agreed to proceed with that for today. Further recommendations to follow. MD CALLY Shearer/steve , 01:32 PM , 01:41 PM
[2018-01-10 23:09] LABS: Baso # (Auto) 0.1 th/mm3 (0.0-0.2); Baso % (Auto) 0.9 % (0.0-2.0); Eos # (Auto) 0.2 th/mm3 (0.0-0.4); Eos % (Auto) 1.6 % (0.0-4.0); Hematocrit 25.5 % (39.0-51.0); Hemoglobin 8.9 gm/dL (13.0-17.0); Lymph # (Auto) 2.1 th/mm3 (1.0-4.8); Lymph % (Auto) 19.4 % (9.0-44.0); Mean Corpuscular HGB Conc 34.8 % (32.0-36.0); Mean Corpuscular Hemoglobin 32.2 pg (27.0-34.0); Mean Corpuscular Volume 92.6 fL (80.0-100.0); Mean Platelet Volume 7.8 fL (7.0-11.0); Mono # (Auto) 1.7 th/mm3 (0.0-0.9); Mono % (Auto) 15.6 % (0.0-8.0); Neut # (Auto) 6.7 th/mm3 (1.8-7.7); Neut % (Auto) 62.5 % (16.0-70.0); Platelet Count 226 th/mm3 (150-450); Red Blood Count 2.76 mil/mm3 (4.50-5.90); Red Cell Distribution Width 16.6 % (11.6-17.2); White Blood Count 10.7 th/mm3 (4.0-11.0)
[2018-01-11 00:07] LABS: Eosinophils 1 % (0-4); Lymphocytes 25 % (9-44); Metamyelocytes 1 % (0-1); Monocytes 4 % (0-8); Myelocytes 1 % (0-0); Platelet Estimate Normal (Normal); Platelet Morphology Normal (Normal); Tallied Nucleated RBC 2 (0-0)
[2018-01-11 00:08] LABS: Polychromasia 2.2 % (0.0-1.9)
[2018-01-11] MEDS: Thiamine Inj 100 MG in Sodium Chlor 0.9% Inj 100 ML IV.SIG SCH (02:45)
[2018-01-11] MEDS: Sod Chloride 0.9% Inj 1,000 ML IV.CONT SCH ×3 (02:46→13:50)
[2018-01-11 04:56] LABS: Baso # (Auto) 0.1 th/mm3 (0.0-0.2); Baso % (Auto) 1.3 % (0.0-2.0); Eos # (Auto) 0.2 th/mm3 (0.0-0.4); Eos % (Auto) 2.4 % (0.0-4.0); Hematocrit 25.2 % (39.0-51.0); Hemoglobin 8.8 gm/dL (13.0-17.0); Lymph # (Auto) 1.9 th/mm3 (1.0-4.8); Lymph % (Auto) 20.9 % (9.0-44.0); Mean Corpuscular HGB Conc 34.9 % (32.0-36.0); Mean Corpuscular Hemoglobin 31.8 pg (27.0-34.0); Mean Corpuscular Volume 91.2 fL (80.0-100.0); Mean Platelet Volume 7.8 fL (7.0-11.0); Mono # (Auto) 1.2 th/mm3 (0.0-0.9); Mono % (Auto) 12.6 % (0.0-8.0); Neut # (Auto) 5.7 th/mm3 (1.8-7.7); Neut % (Auto) 62.8 % (16.0-70.0); Platelet Count 253 th/mm3 (150-450); Red Blood Count 2.76 mil/mm3 (4.50-5.90); Red Cell Distribution Width 16.5 % (11.6-17.2); White Blood Count 9.1 th/mm3 (4.0-11.0)
[2018-01-11 05:06] LABS: Prothrombin Time 10.3 sec (9.8-11.6)
[2018-01-11 05:21] LABS: Alanine Aminotransferase 33 U/L (12-78); Albumin 2.4 g/dL (3.4-5.0); Alkaline Phosphatase 42 U/L (45-117); Anion Gap 9 meq/L (5-15); Aspartate Aminotransferase 31 U/L (15-37); Blood Urea Nitrogen 11 mg/dL (7-18); Calcium 7.3 mg/dL (8.5-10.1); Chloride 107 meq/L (98-107); Glomerular Filtration Rate Greater Than 89 mL/min (>89); Glucose,Random 60 mg/dL (74-106); Potassium 3.8 meq/L (3.5-5.1); Sodium 141 meq/L (136-145)
[2018-01-11 07:54] LABS: Eosinophils 1 % (0-4); Lymphocytes 21 % (9-44); Metamyelocytes 2 % (0-1); Monocytes 7 % (0-8); Promyelocyte 2 % (0-0); Tallied Nucleated RBC 1 (0-0)
[2018-01-11 07:56] LABS: Platelet Estimate Normal (Normal); Platelet Morphology Normal (Normal)
[2018-01-11] MEDS: oxyCODONE/Acetaminophen 10/325 Tablet PO PRN (09:01)
[2018-01-11] MEDS: Folic Acid 1 MG Tablet PO SCH (10:32)
[2018-01-11] MEDS: Multivitamin/Minerals Therapeutic Tablet PO SCH (10:36)
[2018-01-11] MEDS: Insulin NovoLOG Aspart Correctional Sugar Inj SQ SCH ×4 (11:08→20:57)
[2018-01-11] MEDS: LORazepam 1 MG Tablet PO PRN ×3 (11:10→22:18)
--- NOTE | 2018-01-11 12:28 | P.PNIM ---
Subjective Interval history: Reports he is feeling slightly better today. No bowel movement since yesterday evening. He wants to eat regular food. Physical Exam Vital signs: Vital Signs 01/10/18 12:57 01/10/18 13:06 01/10/18 16:00 Temperature 97.6 F 97.6 F Pulse Rate 69 66 Respiratory Rate 18 19 19 Blood Pressure 125/69 127/74 Pulse Oximetry 99 100 01/10/18 20:00 01/11/18 00:00 01/11/18 04:00 Temperature 97.8 F 97.8 F 97.8 F Pulse Rate 72 76 74 Respiratory Rate 18 22 19 Blood Pressure 132/73 110/66 102/67 Pulse Oximetry 72 L 98 100 Intake & Output 01/10/18 01/11/18 01/11/18 18:59 06:59 18:59 Intake Total 1600 / 1600 1500.5 / 1500.5 1101 / 1101 Output Total 200 / 200 Balance 1600 / 1600 1300.5 / 1300.5 1101 / 1101 Weight 69.9 kg Intake: IV 200 / 200 1500.5 / 1500.5 301 / 301 SandoSTATIN Inj 500 MCG In NS 500.5 / 500.5 Inj 500 ML @ 25 MCG/HR 25.02 mls/hr IV.CONT .Q20H1M RYAN Rx#: [id number] Protonix Inj 80 MG In NS Inj 100 / 100 100 / 100 100 ML @ 10 mls/hr IV.CONT CONT RYAN Rx#:[id number] NS Inj 1,000 ML @ 140 mls/hr IV 1000 / 1000 .CONT .Q7H9M RYAN Rx#:[id number] Thiamine Inj 100 MG In NS Inj 101 / 101 100 ML @ 100 mls/hr IV.SIG Q24H RYAN Rx#:[id number] Rocephin Inj 1,000 MG In NS Inj 100 / 100 100 / 100 100 ML @ 200 mls/hr IV.SIG Q24H RYAN Rx#:[id number] Oral 800 / 800 Anesthesia Amount 200 / 200 Intake (Blood Product) Amt 1200 / 1200 Rbc As-3 Leukoreduced Unit 400 / 400 [id number] Rbc As-3 Leukoreduced Unit 400 / 400 [id number] Rbc As-3 Leukoreduced Unit 400 / 400 [id number] Output: Urine 200 / 200 Other: # Voids 3 3 Date of Last Bowel Movement 01/10/18 01/10/18 01/10/18 # Bowel Movements 3 2 Narrative: GENERAL: Patient appears older than stated age. CARDIOVASCULAR: Normal rate and regular rhythm without murmurs, gallops, or rubs. RESPIRATORY: Good respiratory efforts. Breath sounds equal and clear to auscultation bilaterally. GASTROINTESTINAL: Abdomen soft, non-tender, non-distended. Normal active bowel sounds MUSCULOSKELETAL: Extremities without cyanosis, or edema. NEURO: Alert & Oriented x4 to person, place, time, situation. Moves all ext x4. Somewhat tremulous. PSYCH: Appropriate mood and affect. Results - Labs CBC & Chem 7: 01/11/18 04:08 01/11/18 04:08 Laboratory Results - last 24 hr 01/10/18 01/10/18 01/10/18 01:12 10:41 17:45 WBC RBC Hgb Hct MCV MCH MCHC RDW Plt Count MPV Prelim Diff (Auto) Neut % (Auto) Lymph % (Auto) [place] % (Auto) Eos % (Auto) Baso % (Auto) Neut # (Auto) Lymph # (Auto) [place] # (Auto) Eos # (Auto) Baso # (Auto) WBC Differential Seg Neuts % (Manual) Band Neuts % (Manual) Lymphocytes % (Manual) Monocytes % (Manual) Eosinophils % (Manual) Basophils % (Manual) Metamyelocytes % (Man) Myelocytes % (Man) Promyelocytes % (Man) Abs Neuts (Manual) Nucleated RBCs/100 WBC Differential Comment Platelet Estimate Platelet Morphology Polychromasia PT INR Sodium Potassium Chloride Carbon Dioxide Anion Gap BUN Creatinine Estimated GFR POC Glucose 126 H Random Glucose Calcium Prot Corrected Calcium Total Bilirubin AST ALT Alkaline Phosphatase Total Protein Albumin MTS Gel Crossmatch See Detail See Detail 01/10/18 01/10/18 01/10/18 17:55 21:00 22:51 WBC 10.7 RBC 2.76 L Hgb 10.3 L D 8.9 L Hct 25.5 L MCV 92.6 MCH 32.2 MCHC 34.8 RDW 16.6 Plt Count 226 MPV 7.8 Prelim Diff (Auto) Slide review pending Neut % (Auto) 62.5 Lymph % (Auto) 19.4 [place] % (Auto) 15.6 H Eos % (Auto) 1.6 Baso % (Auto) 0.9 Neut # (Auto) 6.7 Lymph # (Auto) 2.1 [place] # (Auto) 1.7 H Eos # (Auto) 0.2 Baso # (Auto) 0.1 WBC Differential Manual diff final Seg Neuts % (Manual) 60 Band Neuts % (Manual) 7 H Lymphocytes % (Manual) 25 Monocytes % (Manual) 4 Eosinophils % (Manual) 1 Basophils % (Manual) 1 Metamyelocytes % (Man) 1 Myelocytes % (Man) 1 H Promyelocytes % (Man) Abs Neuts (Manual) 7.4 Nucleated RBCs/100 WBC 2 H Differential Comment . Platelet Estimate Normal Platelet Morphology Normal Polychromasia 2.2 H PT INR Sodium Potassium Chloride Carbon Dioxide Anion Gap BUN Creatinine Estimated GFR POC Glucose 273 H Random Glucose Calcium Prot Corrected Calcium Total Bilirubin AST ALT Alkaline Phosphatase Total Protein Albumin MTS Gel Crossmatch 01/11/18 01/11/18 01/11/18 04:08 04:08 04:08 WBC 9.1 RBC 2.76 L Hgb 8.8 L Hct 25.2 L MCV 91.2 MCH 31.8 MCHC 34.9 RDW 16.5 Plt Count 253 MPV 7.8 Prelim Diff (Auto) Slide review pending Neut % (Auto) 62.8 Lymph % (Auto) 20.9 [place] % (Auto) 12.6 H Eos % (Auto) 2.4 Baso % (Auto) 1.3 Neut # (Auto) 5.7 Lymph # (Auto) 1.9 [place] # (Auto) 1.2 H Eos # (Auto) 0.2 Baso # (Auto) 0.1 WBC Differential Manual diff final Seg Neuts % (Manual) 63 Band Neuts % (Manual) 4 Lymphocytes % (Manual) 21 Monocytes % (Manual) 7 Eosinophils % (Manual) 1 Basophils % (Manual) Metamyelocytes % (Man) 2 H Myelocytes % (Man) Promyelocytes % (Man) 2 H Abs Neuts (Manual) 6.5 Nucleated RBCs/100 WBC 1 H Differential Comment . Platelet Estimate Normal Platelet Morphology Normal Polychromasia PT 10.3 INR 1.0 Sodium 141 Potassium 3.8 D Chloride 107 Carbon Dioxide 25.0 Anion Gap 9 BUN 11 Creatinine 0.57 L Estimated GFR Greater than 89 POC Glucose Random Glucose 60 L Calcium 7.3 L* Prot Corrected Calcium 8.5 Total Bilirubin 0.3 AST 31 ALT 33 Alkaline Phosphatase 42 L Total Protein 5.0 L Albumin 2.4 L MTS Gel Crossmatch 01/11/18 11:01 WBC RBC Hgb Hct MCV MCH MCHC RDW Plt Count MPV Prelim Diff (Auto) Neut % (Auto) Lymph % (Auto) [place] % (Auto) Eos % (Auto) Baso % (Auto) Neut # (Auto) Lymph # (Auto) [place] # (Auto) Eos # (Auto) Baso # (Auto) WBC Differential Seg Neuts % (Manual) Band Neuts % (Manual) Lymphocytes % (Manual) Monocytes % (Manual) Eosinophils % (Manual) Basophils % (Manual) Metamyelocytes % (Man) Myelocytes % (Man) Promyelocytes % (Man) Abs Neuts (Manual) Nucleated RBCs/100 WBC Differential Comment Platelet Estimate Platelet Morphology Polychromasia PT INR Sodium Potassium Chloride Carbon Dioxide Anion Gap BUN Creatinine Estimated GFR POC Glucose 308 H Random Glucose Calcium Prot Corrected Calcium Total Bilirubin AST ALT Alkaline Phosphatase Total Protein Albumin MTS Gel Crossmatch Assessment and Plan - Plan 57-year-old male with: GI bleeding: - Appreciated GI following. EGD revealed large nonbleeding ulcer in the duodenum. Status post epinephrine and cauterization. - Continue octreotide and Protonix drip. Further plans per GI. Will need colonoscopy outpatient per GI. - Continue to monitor for bleeding. -Continue prophylactic Rocephin for today. -Advance diet as tolerated. Acute blood loss anemia Serial Hgb q6 hours. Transfuse for hemoglobin less than 8. EtOH dependence CIWA protocol Thiamine/MVI/folic acid. Patient extensively counseled regarding cessation. Tobacco abuse Tobacco cessation counseling discussed Has a nicotine patch in place. Acute hyperglycemia Monitor bedside glucose every 6 hours and administer low-dose insulin sliding scale as indicated PROPH: SCDs for DVT prophylaxis. Pharmacologic DVT prophylaxis is contraindicated due to acute bleeding. Discharge Planning: Stable for transfer to floor today.
[2018-01-11 13:34] LABS: Hematocrit 23.6 % (39.0-51.0); Hemoglobin 8.1 gm/dL (13.0-17.0)
--- NOTE | 2018-01-11 13:41 | P.PNGI ---
Physical Exam Vital signs: Vital Signs 01/10/18 16:00 01/10/18 20:00 01/11/18 00:00 Temperature 97.6 F 97.8 F 97.8 F Pulse Rate 66 72 76 Respiratory Rate 19 18 22 Blood Pressure 127/74 132/73 110/66 Pulse Oximetry 100 72 L 98 01/11/18 04:00 Temperature 97.8 F Pulse Rate 74 Respiratory Rate 19 Blood Pressure 102/67 Pulse Oximetry 100 Intake & Output 01/10/18 01/11/18 01/11/18 18:59 06:59 18:59 Intake Total 1600 / 1600 1500.5 / 1500.5 1101 / 1101 Output Total 200 / 200 Balance 1600 / 1600 1300.5 / 1300.5 1101 / 1101 Weight 69.9 kg Intake: IV 200 / 200 1500.5 / 1500.5 301 / 301 SandoSTATIN Inj 500 MCG In NS 500.5 / 500.5 Inj 500 ML @ 25 MCG/HR 25.02 mls/hr IV.CONT .Q20H1M RYAN Rx#: [id number] Protonix Inj 80 MG In NS Inj 100 / 100 100 / 100 100 ML @ 10 mls/hr IV.CONT CONT RYAN Rx#:[id number] NS Inj 1,000 ML @ 140 mls/hr IV 1000 / 1000 .CONT .Q7H9M RYAN Rx#:[id number] Thiamine Inj 100 MG In NS Inj 101 / 101 100 ML @ 100 mls/hr IV.SIG Q24H RYAN Rx#:[id number] Rocephin Inj 1,000 MG In NS Inj 100 / 100 100 / 100 100 ML @ 200 mls/hr IV.SIG Q24H RYAN Rx#:[id number] Oral 800 / 800 Anesthesia Amount 200 / 200 Intake (Blood Product) Amt 1200 / 1200 Rbc As-3 Leukoreduced Unit 400 / 400 [id number] Rbc As-3 Leukoreduced Unit 400 / 400 [id number] Rbc As-3 Leukoreduced Unit 400 / 400 [id number] Output: Urine 200 / 200 Other: # Voids 3 3 Date of Last Bowel Movement 01/10/18 01/10/18 01/10/18 # Bowel Movements 3 2 <Michelle Randolph - Last Filed: 01/11/18 13:46> Vital signs: Vital Signs 01/10/18 16:00 01/10/18 20:00 01/11/18 00:00 Temperature 97.6 F 97.8 F 97.8 F Pulse Rate 66 72 76 Respiratory Rate 19 18 22 Blood Pressure 127/74 132/73 110/66 Pulse Oximetry 100 72 L 98 01/11/18 04:00 01/11/18 08:25 Temperature 97.8 F Pulse Rate 74 Respiratory Rate 19 Blood Pressure 102/67 Pulse Oximetry 100 100 Intake & Output 01/10/18 01/11/18 01/11/18 18:59 06:59 18:59 Intake Total 1600 / 1600 1500.5 / 1500.5 205 / 2051 Output Total 200 / 200 775 / 775 Balance 1600 / 1600 1300.5 / 1300.5 1276 / 1276 Weight 69.9 kg Intake: IV 200 / 200 1500.5 / 1500.5 651 / 651 SandoSTATIN Inj 500 MCG In NS 500.5 / 500.5 350 / 350 Inj 500 ML @ 25 MCG/HR 25.02 mls/hr IV.CONT .Q20H1M RYAN Rx#: [id number] Protonix Inj 80 MG In NS Inj 100 / 100 100 / 100 100 ML @ 10 mls/hr IV.CONT CONT RYAN Rx#:[id number] NS Inj 1,000 ML @ 140 mls/hr IV 1000 / 1000 .CONT .Q7H9M RYAN Rx#:[id number] Thiamine Inj 100 MG In NS Inj 101 / 101 100 ML @ 100 mls/hr IV.SIG Q24H RYAN Rx#:[id number] Rocephin Inj 1,000 MG In NS Inj 100 / 100 100 / 100 100 ML @ 200 mls/hr IV.SIG Q24H RYAN Rx#:[id number] Oral 1400 / 1400 Anesthesia Amount 200 / 200 Intake (Blood Product) Amt 1200 / 1200 Rbc As-3 Leukoreduced Unit 400 / 400 [id number] Rbc As-3 Leukoreduced Unit 400 / 400 [id number] Rbc As-3 Leukoreduced Unit 400 / 400 [id number] Output: Urine 200 / 200 775 / 775 Other: # Voids 3 3 1 Date of Last Bowel Movement 01/10/18 01/10/18 01/10/18 # Bowel Movements 3 2 <Mary Lou,Mohammad A - Last Filed: 01/11/18 14:32> Results - Labs CBC & Chem 7: 01/11/18 11:55 01/11/18 04:08 Laboratory Results - last 24 hr 01/10/18 01/10/18 01/10/18 10:41 17:45 17:55 WBC RBC Hgb 10.3 L D Hct MCV MCH MCHC RDW Plt Count MPV Prelim Diff (Auto) Neut % (Auto) Lymph % (Auto) [place] % (Auto) Eos % (Auto) Baso % (Auto) Neut # (Auto) Lymph # (Auto) [place] # (Auto) Eos # (Auto) Baso # (Auto) WBC Differential Seg Neuts % (Manual) Band Neuts % (Manual) Lymphocytes % (Manual) Monocytes % (Manual) Eosinophils % (Manual) Basophils % (Manual) Metamyelocytes % (Man) Myelocytes % (Man) Promyelocytes % (Man) Abs Neuts (Manual) Nucleated RBCs/100 WBC Differential Comment Platelet Estimate Platelet Morphology Polychromasia PT INR Sodium Potassium Chloride Carbon Dioxide Anion Gap BUN Creatinine Estimated GFR POC Glucose 126 H Random Glucose Calcium Prot Corrected Calcium Total Bilirubin AST ALT Alkaline Phosphatase Total Protein Albumin MTS Gel Crossmatch See Detail 01/10/18 01/10/18 01/11/18 21:00 22:51 04:08 WBC 10.7 RBC 2.76 L Hgb 8.9 L Hct 25.5 L MCV 92.6 MCH 32.2 MCHC 34.8 RDW 16.6 Plt Count 226 MPV 7.8 Prelim Diff (Auto) Slide review pending Neut % (Auto) 62.5 Lymph % (Auto) 19.4 [place] % (Auto) 15.6 H Eos % (Auto) 1.6 Baso % (Auto) 0.9 Neut # (Auto) 6.7 Lymph # (Auto) 2.1 [place] # (Auto) 1.7 H Eos # (Auto) 0.2 Baso # (Auto) 0.1 WBC Differential Manual diff final Seg Neuts % (Manual) 60 Band Neuts % (Manual) 7 H Lymphocytes % (Manual) 25 Monocytes % (Manual) 4 Eosinophils % (Manual) 1 Basophils % (Manual) 1 Metamyelocytes % (Man) 1 Myelocytes % (Man) 1 H Promyelocytes % (Man) Abs Neuts (Manual) 7.4 Nucleated RBCs/100 WBC 2 H Differential Comment . Platelet Estimate Normal Platelet Morphology Normal Polychromasia 2.2 H PT 10.3 INR 1.0 Sodium Potassium Chloride Carbon Dioxide Anion Gap BUN Creatinine Estimated GFR POC Glucose 273 H Random Glucose Calcium Prot Corrected Calcium Total Bilirubin AST ALT Alkaline Phosphatase Total Protein Albumin MTS Gel Crossmatch 01/11/18 01/11/18 01/11/18 04:08 04:08 11:01 WBC 9.1 RBC 2.76 L Hgb 8.8 L Hct 25.2 L MCV 91.2 MCH 31.8 MCHC 34.9 RDW 16.5 Plt Count 253 MPV 7.8 Prelim Diff (Auto) Slide review pending Neut % (Auto) 62.8 Lymph % (Auto) 20.9 [place] % (Auto) 12.6 H Eos % (Auto) 2.4 Baso % (Auto) 1.3 Neut # (Auto) 5.7 Lymph # (Auto) 1.9 [place] # (Auto) 1.2 H Eos # (Auto) 0.2 Baso # (Auto) 0.1 WBC Differential Manual diff final Seg Neuts % (Manual) 63 Band Neuts % (Manual) 4 Lymphocytes % (Manual) 21 Monocytes % (Manual) 7 Eosinophils % (Manual) 1 Basophils % (Manual) Metamyelocytes % (Man) 2 H Myelocytes % (Man) Promyelocytes % (Man) 2 H Abs Neuts (Manual) 6.5 Nucleated RBCs/100 WBC 1 H Differential Comment . Platelet Estimate Normal Platelet Morphology Normal Polychromasia PT INR Sodium 141 Potassium 3.8 D Chloride 107 Carbon Dioxide 25.0 Anion Gap 9 BUN 11 Creatinine 0.57 L Estimated GFR Greater than 89 POC Glucose 308 H Random Glucose 60 L Calcium 7.3 L* Prot Corrected Calcium 8.5 Total Bilirubin 0.3 AST 31 ALT 33 Alkaline Phosphatase 42 L Total Protein 5.0 L Albumin 2.4 L MTS Gel Crossmatch 01/11/18 11:55 WBC RBC Hgb 8.1 L Hct 23.6 L MCV MCH MCHC RDW Plt Count MPV Prelim Diff (Auto) Neut % (Auto) Lymph % (Auto) [place] % (Auto) Eos % (Auto) Baso % (Auto) Neut # (Auto) Lymph # (Auto) [place] # (Auto) Eos # (Auto) Baso # (Auto) WBC Differential Seg Neuts % (Manual) Band Neuts % (Manual) Lymphocytes % (Manual) Monocytes % (Manual) Eosinophils % (Manual) Basophils % (Manual) Metamyelocytes % (Man) Myelocytes % (Man) Promyelocytes % (Man) Abs Neuts (Manual) Nucleated RBCs/100 WBC Differential Comment Platelet Estimate Platelet Morphology Polychromasia PT INR Sodium Potassium Chloride Carbon Dioxide Anion Gap BUN Creatinine Estimated GFR POC Glucose Random Glucose Calcium Prot Corrected Calcium Total Bilirubin AST ALT Alkaline Phosphatase Total Protein Albumin MTS Gel Crossmatch <Michelle Randolph - Last Filed: 01/11/18 13:46> - Labs CBC & Chem 7: 01/11/18 11:55 01/11/18 04:08 Laboratory Results - last 24 hr 01/10/18 01/10/18 01/10/18 10:41 17:45 17:55 WBC RBC Hgb 10.3 L D Hct MCV MCH MCHC RDW Plt Count MPV Prelim Diff (Auto) Neut % (Auto) Lymph % (Auto) [place] % (Auto) Eos % (Auto) Baso % (Auto) Neut # (Auto) Lymph # (Auto) [place] # (Auto) Eos # (Auto) Baso # (Auto) WBC Differential Seg Neuts % (Manual) Band Neuts % (Manual) Lymphocytes % (Manual) Monocytes % (Manual) Eosinophils % (Manual) Basophils % (Manual) Metamyelocytes % (Man) Myelocytes % (Man) Promyelocytes % (Man) Abs Neuts (Manual) Nucleated RBCs/100 WBC Differential Comment Platelet Estimate Platelet Morphology Polychromasia PT INR Sodium Potassium Chloride Carbon Dioxide Anion Gap BUN Creatinine Estimated GFR POC Glucose 126 H Random Glucose Calcium Prot Corrected Calcium Total Bilirubin AST ALT Alkaline Phosphatase Total Protein Albumin MTS Gel Crossmatch See Detail 01/10/18 01/10/18 01/11/18 21:00 22:51 04:08 WBC 10.7 RBC 2.76 L Hgb 8.9 L Hct 25.5 L MCV 92.6 MCH 32.2 MCHC 34.8 RDW 16.6 Plt Count 226 MPV 7.8 Prelim Diff (Auto) Slide review pending Neut % (Auto) 62.5 Lymph % (Auto) 19.4 [place] % (Auto) 15.6 H Eos % (Auto) 1.6 Baso % (Auto) 0.9 Neut # (Auto) 6.7 Lymph # (Auto) 2.1 [place] # (Auto) 1.7 H Eos # (Auto) 0.2 Baso # (Auto) 0.1 WBC Differential Manual diff final Seg Neuts % (Manual) 60 Band Neuts % (Manual) 7 H Lymphocytes % (Manual) 25 Monocytes % (Manual) 4 Eosinophils % (Manual) 1 Basophils % (Manual) 1 Metamyelocytes % (Man) 1 Myelocytes % (Man) 1 H Promyelocytes % (Man) Abs Neuts (Manual) 7.4 Nucleated RBCs/100 WBC 2 H Differential Comment . Platelet Estimate Normal Platelet Morphology Normal Polychromasia 2.2 H PT 10.3 INR 1.0 Sodium Potassium Chloride Carbon Dioxide Anion Gap BUN Creatinine Estimated GFR POC Glucose 273 H Random Glucose Calcium Prot Corrected Calcium Total Bilirubin AST ALT Alkaline Phosphatase Total Protein Albumin MTS Gel Crossmatch 01/11/18 01/11/18 01/11/18 04:08 04:08 11:01 WBC 9.1 RBC 2.76 L Hgb 8.8 L Hct 25.2 L MCV 91.2 MCH 31.8 MCHC 34.9 RDW 16.5 Plt Count 253 MPV 7.8 Prelim Diff (Auto) Slide review pending Neut % (Auto) 62.8 Lymph % (Auto) 20.9 [place] % (Auto) 12.6 H Eos % (Auto) 2.4 Baso % (Auto) 1.3 Neut # (Auto) 5.7 Lymph # (Auto) 1.9 [place] # (Auto) 1.2 H Eos # (Auto) 0.2 Baso # (Auto) 0.1 WBC Differential Manual diff final Seg Neuts % (Manual) 63 Band Neuts % (Manual) 4 Lymphocytes % (Manual) 21 Monocytes % (Manual) 7 Eosinophils % (Manual) 1 Basophils % (Manual) Metamyelocytes % (Man) 2 H Myelocytes % (Man) Promyelocytes % (Man) 2 H Abs Neuts (Manual) 6.5 Nucleated RBCs/100 WBC 1 H Differential Comment . Platelet Estimate Normal Platelet Morphology Normal Polychromasia PT INR Sodium 141 Potassium 3.8 D Chloride 107 Carbon Dioxide 25.0 Anion Gap 9 BUN 11 Creatinine 0.57 L Estimated GFR Greater than 89 POC Glucose 308 H Random Glucose 60 L Calcium 7.3 L* Prot Corrected Calcium 8.5 Total Bilirubin 0.3 AST 31 ALT 33 Alkaline Phosphatase 42 L Total Protein 5.0 L Albumin 2.4 L MTS Gel Crossmatch 01/11/18 01/11/18 11:55 14:17 WBC RBC Hgb 8.1 L Hct 23.6 L MCV MCH MCHC RDW Plt Count MPV Prelim Diff (Auto) Neut % (Auto) Lymph % (Auto) [place] % (Auto) Eos % (Auto) Baso % (Auto) Neut # (Auto) Lymph # (Auto) [place] # (Auto) Eos # (Auto) Baso # (Auto) WBC Differential Seg Neuts % (Manual) Band Neuts % (Manual) Lymphocytes % (Manual) Monocytes % (Manual) Eosinophils % (Manual) Basophils % (Manual) Metamyelocytes % (Man) Myelocytes % (Man) Promyelocytes % (Man) Abs Neuts (Manual) Nucleated RBCs/100 WBC Differential Comment Platelet Estimate Platelet Morphology Polychromasia PT INR Sodium Potassium Chloride Carbon Dioxide Anion Gap BUN Creatinine Estimated GFR POC Glucose 100 Random Glucose Calcium Prot Corrected Calcium Total Bilirubin AST ALT Alkaline Phosphatase Total Protein Albumin MTS Gel Crossmatch <Jac Barreto - Last Filed: 01/11/18 14:32> Assessment and Plan - Plan ASSESSMENT: A 57-year-old male patient, who presented with: 1. Bleeding per rectum. Fresh blood, dark in color over the last 2 weeks. 2. Several episodes of hematemesis. 3. History of heavy alcohol use in the past. 4. No previous endoscopy or colonoscopy. 5. History of pancreatitis. 6. Severe anemia. Day of admission plan We will proceed with upper endoscopy today for controlling of his bleeding and possible banding if needed. Meanwhile, agree with ICU management with aggressive IV fluid hydration. Blood transfusion as needed. H and H proton pump inhibitor, simvastatin, and will proceed with endoscopy today. The procedure was explained to the patient including risks, benefits, and possible complications, and he agreed to proceed with that for today. Further recommendations to follow. Dr. Barreto 01/11/2018 patient is resting in the bed denies any current nausea vomiting or abdominal pain. Current labs are stable with hemoglobin of 8.8 LFTs and bilirubin normal. EGD showed multiple erosions in the gastric antrum and large nonbleeding ulcer at the first portion of the duodenum. Place patient on cardiac diet and DC Sandostatin drip, placed on Protonix 40 mg twice a day. encourage patient to increase his activity up to chair, and caution for any abnormal bleeding or dyspepsia. Plan Diet cardiac, encourage hydration PPI p.o. 40 mg twice daily Vitamins including folic acid Bowel regimen as needed Monitor labs transfuse as needed Encourage alcohol abstinence Bowel regimen as needed further recommendations to follow Patient was seen per myself and Dr. Barreto, note was written on his behalf <Michelle Randolph - Last Filed: 01/11/18 13:46> - Attending Attestation Agree with the plan as above. Diet to be advanced as tolerated. <Jac Barreto - Last Filed: 01/11/18 14:32>
[2018-01-11] MEDS: Morphine Sulfate Inj 2 MG/ML Vial IV.PUSH PRN ×2 (14:25→18:12)
[2018-01-11 21:01] LABS: Hematocrit 27.2 % (39.0-51.0); Hemoglobin 9.2 gm/dL (13.0-17.0)
[2018-01-12] MEDS: Morphine Sulfate Inj 2 MG/ML Vial IV.PUSH PRN ×4 (01:00→16:33)
[2018-01-12] MEDS: Thiamine Inj 100 MG in Sodium Chlor 0.9% Inj 100 ML IV.SIG SCH (03:11)
[2018-01-12 07:01] LABS: Baso # (Auto) 0.1 th/mm3 (0.0-0.2); Baso % (Auto) 1.1 % (0.0-2.0); Eos # (Auto) 0.1 th/mm3 (0.0-0.4); Eos % (Auto) 1.9 % (0.0-4.0); Hematocrit 25.7 % (39.0-51.0); Hemoglobin 8.8 gm/dL (13.0-17.0); Lymph # (Auto) 1.6 th/mm3 (1.0-4.8); Mean Corpuscular HGB Conc 34.2 % (32.0-36.0); Mean Corpuscular Hemoglobin 32.1 pg (27.0-34.0); Mean Corpuscular Volume 93.8 fL (80.0-100.0); Mean Platelet Volume 7.6 fL (7.0-11.0); Mono # (Auto) 0.9 th/mm3 (0.0-0.9); Mono % (Auto) 12.3 % (0.0-8.0); Neut # (Auto) 4.9 th/mm3 (1.8-7.7); Neut % (Auto) 63.7 % (16.0-70.0); Platelet Count 282 th/mm3 (150-450); Red Blood Count 2.74 mil/mm3 (4.50-5.90); Red Cell Distribution Width 16.4 % (11.6-17.2); White Blood Count 7.6 th/mm3 (4.0-11.0)
[2018-01-12 07:05] LABS: INR 0.9 Ratio; Prothrombin Time 9.6 sec (9.8-11.6)
[2018-01-12 07:31] LABS: Alanine Aminotransferase 30 U/L (12-78); Albumin 2.2 g/dL (3.4-5.0); Alkaline Phosphatase 48 U/L (45-117); Anion Gap 7 meq/L (5-15); Aspartate Aminotransferase 29 U/L (15-37); Blood Urea Nitrogen 6 mg/dL (7-18); Calcium 7.4 mg/dL (8.5-10.1); Carbon Dioxide 28.1 meq/L (21.0-32.0); Chloride 106 meq/L (98-107); Glomerular Filtration Rate Greater Than 89 mL/min (>89); Glucose,Random 129 mg/dL (74-106); Potassium 3.6 meq/L (3.5-5.1); Sodium 141 meq/L (136-145); Total Protein 4.9 g/dL (6.4-8.2)
[2018-01-12 08:08] LABS: Eosinophils 1 % (0-4); Lymphocytes 18 % (9-44); Metamyelocytes 1 % (0-1); Monocytes 15 % (0-8); Myelocytes 2 % (0-0); Platelet Estimate Normal (Normal); Platelet Morphology Normal (Normal)
[2018-01-12 08:09] LABS: Toxic Granulation 1+
[2018-01-12] MEDS: Folic Acid 1 MG Tablet PO SCH (08:20)
[2018-01-12] MEDS: Multivitamin/Minerals Therapeutic Tablet PO SCH (08:20)
[2018-01-12] MEDS: Insulin NovoLOG Aspart Correctional Sugar Inj SQ SCH ×4 (08:21→21:36)
[2018-01-12] MEDS ORDERED: Bisacodyl 10 MG Supp RECTAL PRN (09:11)
[2018-01-12] MEDS: LORazepam 1 MG Tablet PO PRN (09:50)
--- NOTE | 2018-01-12 10:01 | P.PNGI ---
Subjective Interval history: Pt awake alert sitting up in bed watching TV. Denies abdominal pain, nausea or vomiting. Tolerating Po intake well. No bm today. <Debora Rodriguez - Last Filed: 01/12/18 10:01> Physical Exam Vital signs: Vital Signs 01/11/18 12:00 01/11/18 16:00 01/11/18 20:00 Temperature 97.5 F L 97.9 F 98.0 F Pulse Rate 86 75 76 Respiratory Rate 20 20 25 H Blood Pressure 136/79 126/75 126/82 Pulse Oximetry 100 100 100 01/11/18 20:29 01/12/18 00:00 01/12/18 04:00 Temperature 98.1 F 98.4 F Pulse Rate 90 75 Respiratory Rate 18 18 Blood Pressure 114/62 112/68 Pulse Oximetry 100 96 99 01/12/18 08:00 01/12/18 08:26 Temperature 98.6 F Pulse Rate 89 Respiratory Rate 20 Blood Pressure 124/76 Pulse Oximetry 96 99 Intake & Output 01/11/18 01/12/18 01/12/18 18:59 06:59 18:59 Intake Total 2531 / 2531 711 / 711 Output Total 1700 / 1700 Balance 831 / 831 711 / 711 Weight 69.5 kg Intake: IV 651 / 651 711 / 711 SandoSTATIN Inj 500 MCG In NS 350 / 350 Inj 500 ML @ 25 MCG/HR 25.02 mls/hr IV.CONT .Q20H1M RYAN Rx#: [id number] Protonix Inj 80 MG In NS Inj 100 / 100 100 ML @ 10 mls/hr IV.CONT CONT RYAN Rx#:[id number] Thiamine Inj 100 MG In NS Inj 101 / 101 101 / 101 100 ML @ 100 mls/hr IV.SIG Q24H RYAN Rx#:[id number] Rocephin Inj 1,000 MG In NS Inj 100 / 100 100 / 100 100 ML @ 200 mls/hr IV.SIG Q24H RYAN Rx#:[id number] Oral 1880 / 1880 Output: Urine 1700 / 1700 Other: # Voids 1 6 Date of Last Bowel Movement 01/11/18 01/10/18 01/10/18 # Bowel Movements 2 - Constitutional no acute distress, cooperative - Routine HEENT Exam Head: Present: normocephalic - Routine Neck Exam Present: supple - Routine Respiratory Exam Present: CTA bilaterally - Routine Cardiovascular Exam Present: RRR - Routine Abdominal Exam Present: soft, normoactive bowel sounds. Absent: tenderness, distended, guarding - Routine Extremities Exam Present: pulses intact. Absent: edema - Routine Skin Exam Present: dry, warm - Routine Neurological Exam Present: alert, oriented X3, moving all extremities - Detailed Neurological Exam: Coma Scale Eye Opening: Spontaneous Verbal Response: Oriented Motor Response: Obey commands Gary Coma Scale Total: 15 - Routine Psychiatric Exam Present: normal affect, cooperative <Rodriguez,Debora - Last Filed: 01/12/18 10:01> Vital signs: Vital Signs 01/12/18 00:00 01/12/18 04:00 01/12/18 08:00 Temperature 98.1 F 98.4 F 98.6 F Pulse Rate 90 75 89 Respiratory Rate 18 18 20 Blood Pressure 114/62 112/68 124/76 Pulse Oximetry 96 99 96 01/12/18 08:26 01/12/18 09:00 01/12/18 10:14 Temperature Pulse Rate 98 H Respiratory Rate 22 Blood Pressure Pulse Oximetry 99 01/12/18 12:00 01/12/18 16:00 01/12/18 20:00 Temperature 98.2 F 97.7 F 97.7 F Pulse Rate 81 79 78 Respiratory Rate 21 24 20 Blood Pressure 129/67 120/70 125/74 Pulse Oximetry 99 98 100 01/12/18 20:03 Temperature Pulse Rate Respiratory Rate Blood Pressure Pulse Oximetry 99 Intake & Output 01/12/18 01/12/18 01/13/18 06:59 18:59 06:59 Intake Total 1561 / 1561 0 / 0 Output Total 1999 Balance -439 / -439 0 / 0 Weight 69.5 kg Intake: IV 711 / 711 Thiamine Inj 100 MG In NS Inj 101 / 101 100 ML @ 100 mls/hr IV.SIG Q24H RYAN Rx#:[id number] Rocephin Inj 1,000 MG In NS Inj 100 / 100 100 ML @ 200 mls/hr IV.SIG Q24H RYAN Rx#:[id number] Oral 850 / 850 0 / 0 Output: Urine 1999 Other: # Voids 6 5 Date of Last Bowel Movement 01/10/18 01/10/18 01/10/18 <Jac Barreto - Last Filed: 01/12/18 22:45> Results - Labs CBC & Chem 7: 01/12/18 06:38 01/12/18 06:38 Laboratory Results - last 24 hr 01/11/18 01/11/18 01/11/18 11:01 11:55 14:17 WBC RBC Hgb 8.1 L Hct 23.6 L MCV MCH MCHC RDW Plt Count MPV Prelim Diff (Auto) Neut % (Auto) Lymph % (Auto) [place] % (Auto) Eos % (Auto) Baso % (Auto) Neut # (Auto) Lymph # (Auto) [place] # (Auto) Eos # (Auto) Baso # (Auto) WBC Differential Seg Neuts % (Manual) Band Neuts % (Manual) Lymphocytes % (Manual) Monocytes % (Manual) Eosinophils % (Manual) Basophils % (Manual) Metamyelocytes % (Man) Myelocytes % (Man) Abs Neuts (Manual) Differential Comment Toxic Granulation Platelet Estimate Platelet Morphology Polychromasia PT INR Sodium Potassium Chloride Carbon Dioxide Anion Gap BUN Creatinine Estimated GFR POC Glucose 308 H 100 Random Glucose Calcium Prot Corrected Calcium Total Bilirubin AST ALT Alkaline Phosphatase Total Protein Albumin 01/11/18 01/11/18 01/11/18 16:23 20:01 20:55 WBC RBC Hgb 9.2 L Hct 27.2 L MCV MCH MCHC RDW Plt Count MPV Prelim Diff (Auto) Neut % (Auto) Lymph % (Auto) [place] % (Auto) Eos % (Auto) Baso % (Auto) Neut # (Auto) Lymph # (Auto) [place] # (Auto) Eos # (Auto) Baso # (Auto) WBC Differential Seg Neuts % (Manual) Band Neuts % (Manual) Lymphocytes % (Manual) Monocytes % (Manual) Eosinophils % (Manual) Basophils % (Manual) Metamyelocytes % (Man) Myelocytes % (Man) Abs Neuts (Manual) Differential Comment Toxic Granulation Platelet Estimate Platelet Morphology Polychromasia PT INR Sodium Potassium Chloride Carbon Dioxide Anion Gap BUN Creatinine Estimated GFR POC Glucose 118 H 123 H Random Glucose Calcium Prot Corrected Calcium Total Bilirubin AST ALT Alkaline Phosphatase Total Protein Albumin 01/12/18 01/12/18 01/12/18 06:38 06:38 06:38 WBC 7.6 RBC 2.74 L Hgb 8.8 L Hct 25.7 L MCV 93.8 MCH 32.1 MCHC 34.2 RDW 16.4 Plt Count 282 MPV 7.6 Prelim Diff (Auto) Slide review pending Neut % (Auto) 63.7 Lymph % (Auto) 21.0 [place] % (Auto) 12.3 H Eos % (Auto) 1.9 Baso % (Auto) 1.1 Neut # (Auto) 4.9 Lymph # (Auto) 1.6 [place] # (Auto) 0.9 Eos # (Auto) 0.1 Baso # (Auto) 0.1 WBC Differential Manual diff final Seg Neuts % (Manual) 56 Band Neuts % (Manual) 6 Lymphocytes % (Manual) 18 Monocytes % (Manual) 15 H Eosinophils % (Manual) 1 Basophils % (Manual) 1 Metamyelocytes % (Man) 1 Myelocytes % (Man) 2 H Abs Neuts (Manual) 4.9 Differential Comment . Toxic Granulation 1+ H Platelet Estimate Normal Platelet Morphology Normal Polychromasia 2.0 H PT 9.6 L INR 0.9 Sodium 141 Potassium 3.6 Chloride 106 Carbon Dioxide 28.1 Anion Gap 7 BUN 6 L Creatinine 0.55 L Estimated GFR Greater than 89 POC Glucose Random Glucose 129 H Calcium 7.4 L* Prot Corrected Calcium 8.6 Total Bilirubin 0.1 L AST 29 ALT 30 Alkaline Phosphatase 48 Total Protein 4.9 L Albumin 2.2 L 01/12/18 08:03 WBC RBC Hgb Hct MCV MCH MCHC RDW Plt Count MPV Prelim Diff (Auto) Neut % (Auto) Lymph % (Auto) [place] % (Auto) Eos % (Auto) Baso % (Auto) Neut # (Auto) Lymph # (Auto) [place] # (Auto) Eos # (Auto) Baso # (Auto) WBC Differential Seg Neuts % (Manual) Band Neuts % (Manual) Lymphocytes % (Manual) Monocytes % (Manual) Eosinophils % (Manual) Basophils % (Manual) Metamyelocytes % (Man) Myelocytes % (Man) Abs Neuts (Manual) Differential Comment Toxic Granulation Platelet Estimate Platelet Morphology Polychromasia PT INR Sodium Potassium Chloride Carbon Dioxide Anion Gap BUN Creatinine Estimated GFR POC Glucose 125 H Random Glucose Calcium Prot Corrected Calcium Total Bilirubin AST ALT Alkaline Phosphatase Total Protein Albumin <Debora Rodriguez - Last Filed: 01/12/18 10:01> - Labs CBC & Chem 7: 01/12/18 12:40 01/12/18 06:38 Laboratory Results - last 24 hr 01/12/18 01/12/18 01/12/18 06:38 06:38 06:38 WBC 7.6 RBC 2.74 L Hgb 8.8 L Hct 25.7 L MCV 93.8 MCH 32.1 MCHC 34.2 RDW 16.4 Plt Count 282 MPV 7.6 Prelim Diff (Auto) Slide review pending Neut % (Auto) 63.7 Lymph % (Auto) 21.0 [place] % (Auto) 12.3 H Eos % (Auto) 1.9 Baso % (Auto) 1.1 Neut # (Auto) 4.9 Lymph # (Auto) 1.6 [place] # (Auto) 0.9 Eos # (Auto) 0.1 Baso # (Auto) 0.1 WBC Differential Manual diff final Seg Neuts % (Manual) 56 Band Neuts % (Manual) 6 Lymphocytes % (Manual) 18 Monocytes % (Manual) 15 H Eosinophils % (Manual) 1 Basophils % (Manual) 1 Metamyelocytes % (Man) 1 Myelocytes % (Man) 2 H Abs Neuts (Manual) 4.9 Differential Comment . Toxic Granulation 1+ H Platelet Estimate Normal Platelet Morphology Normal Polychromasia 2.0 H PT 9.6 L INR 0.9 Sodium 141 Potassium 3.6 Chloride 106 Carbon Dioxide 28.1 Anion Gap 7 BUN 6 L Creatinine 0.55 L Estimated GFR Greater than 89 POC Glucose Random Glucose 129 H Calcium 7.4 L* Prot Corrected Calcium 8.6 Total Bilirubin 0.1 L AST 29 ALT 30 Alkaline Phosphatase 48 Total Protein 4.9 L Albumin 2.2 L 01/12/18 01/12/18 01/12/18 08:03 11:33 12:40 WBC RBC Hgb 8.8 L Hct 24.0 L MCV MCH MCHC RDW Plt Count MPV Prelim Diff (Auto) Neut % (Auto) Lymph % (Auto) [place] % (Auto) Eos % (Auto) Baso % (Auto) Neut # (Auto) Lymph # (Auto) [place] # (Auto) Eos # (Auto) Baso # (Auto) WBC Differential Seg Neuts % (Manual) Band Neuts % (Manual) Lymphocytes % (Manual) Monocytes % (Manual) Eosinophils % (Manual) Basophils % (Manual) Metamyelocytes % (Man) Myelocytes % (Man) Abs Neuts (Manual) Differential Comment Toxic Granulation Platelet Estimate Platelet Morphology Polychromasia PT INR Sodium Potassium Chloride Carbon Dioxide Anion Gap BUN Creatinine Estimated GFR POC Glucose 125 H 160 H Random Glucose Calcium Prot Corrected Calcium Total Bilirubin AST ALT Alkaline Phosphatase Total Protein Albumin 01/12/18 17:15 WBC RBC Hgb Hct MCV MCH MCHC RDW Plt Count MPV Prelim Diff (Auto) Neut % (Auto) Lymph % (Auto) [place] % (Auto) Eos % (Auto) Baso % (Auto) Neut # (Auto) Lymph # (Auto) [place] # (Auto) Eos # (Auto) Baso # (Auto) WBC Differential Seg Neuts % (Manual) Band Neuts % (Manual) Lymphocytes % (Manual) Monocytes % (Manual) Eosinophils % (Manual) Basophils % (Manual) Metamyelocytes % (Man) Myelocytes % (Man) Abs Neuts (Manual) Differential Comment Toxic Granulation Platelet Estimate Platelet Morphology Polychromasia PT INR Sodium Potassium Chloride Carbon Dioxide Anion Gap BUN Creatinine Estimated GFR POC Glucose 127 H Random Glucose Calcium Prot Corrected Calcium Total Bilirubin AST ALT Alkaline Phosphatase Total Protein Albumin <Jac Barreto A - Last Filed: 01/12/18 22:45> Assessment and Plan - Plan ASSESSMENT: A 57-year-old male patient, who presented with: 1. Bleeding per rectum. Fresh blood, dark in color over the last 2 weeks. 2. Several episodes of hematemesis. 3. History of heavy alcohol use in the past. 4. No previous endoscopy or colonoscopy. 5. History of pancreatitis. 6. Severe anemia. Day of admission plan We will proceed with upper endoscopy today for controlling of his bleeding and possible banding if needed. Meanwhile, agree with ICU management with aggressive IV fluid hydration. Blood transfusion as needed. H and H proton pump inhibitor, simvastatin, and will proceed with endoscopy today. The procedure was explained to the patient including risks, benefits, and possible complications, and he agreed to proceed with that for today. Further recommendations to follow. Dr. Barreto 01/11/2018 patient is resting in the bed denies any current nausea vomiting or abdominal pain. Current labs are stable with hemoglobin of 8.8 LFTs and bilirubin normal. EGD showed multiple erosions in the gastric antrum and large nonbleeding ulcer at the first portion of the duodenum. Place patient on cardiac diet and DC Sandostatin drip, placed on Protonix 40 mg twice a day. encourage patient to increase his activity up to chair, and caution for any abnormal bleeding or dyspepsia. 01/12/18- Pt awake and alert sitting in bed watching TV. Denies nausea, vomiting. Tolerating po intake well and denies abdominal pain.Denies any noted bleeding. Labs reviewed today: Hgb 8.8, Hct 25.7,Total Bili 0.1, , AST 29, ALT 30 ALP 48. Protonix 40 mg po bid currently ordered. Discussed the importance of activity with patient who states he will increase ambulation and fluids today as tolerated. Plan Cardiac diet Protonix 40 mg po bid Bowel regimen- Dulcolax suppository PRN added Monitor for bleeding Monitor labs Transfuse when and if needed Supportive care Further recommendations to follow Patient was seen by myself and Dr. Barreto. This note is written on his behalf. <Debora Rodriguez - Last Filed: 01/12/18 10:01> - Attending Attestation Seen and examined, plan as above. Stable at the current time from GI point of view. Will sign off for now, please notify us if needed again. <Jac Barreto - Last Filed: 01/12/18 22:45>
[2018-01-12 13:32] LABS: Hemoglobin 8.8 gm/dL (13.0-17.0)
--- NOTE | 2018-01-12 14:11 | P.PNIM ---
Subjective Interval history: Patient reports he is feeling better. No bloody stool. Tolerating his diet. Physical Exam Vital signs: Vital Signs 01/11/18 16:00 01/11/18 20:00 01/11/18 20:29 Temperature 97.9 F 98.0 F Pulse Rate 75 76 Respiratory Rate 20 25 H Blood Pressure 126/75 126/82 Pulse Oximetry 100 100 100 01/12/18 00:00 01/12/18 04:00 01/12/18 08:00 Temperature 98.1 F 98.4 F 98.6 F Pulse Rate 90 75 89 Respiratory Rate 18 18 20 Blood Pressure 114/62 112/68 124/76 Pulse Oximetry 96 99 96 01/12/18 08:26 01/12/18 09:00 01/12/18 10:14 Temperature Pulse Rate 98 H Respiratory Rate 22 Blood Pressure Pulse Oximetry 99 01/12/18 12:00 Temperature 98.2 F Pulse Rate 81 Respiratory Rate 21 Blood Pressure 129/67 Pulse Oximetry 99 Intake & Output 01/11/18 01/12/18 01/12/18 18:59 06:59 18:59 Intake Total 2531 / 2531 711 / 711 Output Total 1700 / 1700 Balance 831 / 831 711 / 711 Weight 69.5 kg Intake: IV 651 / 651 711 / 711 SandoSTATIN Inj 500 MCG In NS 350 / 350 Inj 500 ML @ 25 MCG/HR 25.02 mls/hr IV.CONT .Q20H1M RYAN Rx#: [id number] Protonix Inj 80 MG In NS Inj 100 / 100 100 ML @ 10 mls/hr IV.CONT CONT RYAN Rx#:[id number] Thiamine Inj 100 MG In NS Inj 101 / 101 101 / 101 100 ML @ 100 mls/hr IV.SIG Q24H RYAN Rx#:[id number] Rocephin Inj 1,000 MG In NS Inj 100 / 100 100 / 100 100 ML @ 200 mls/hr IV.SIG Q24H RYAN Rx#:[id number] Oral 1880 / 1880 Output: Urine 1700 / 1700 Other: # Voids 1 6 Date of Last Bowel Movement 01/11/18 01/10/18 01/10/18 # Bowel Movements 2 Narrative: GENERAL: Patient appears older than stated age. CARDIOVASCULAR: Normal rate and regular rhythm without murmurs, gallops, or rubs. RESPIRATORY: Good respiratory efforts. Breath sounds equal and clear to auscultation bilaterally. GASTROINTESTINAL: Abdomen soft, non-tender, non-distended. Normal active bowel sounds MUSCULOSKELETAL: Extremities without cyanosis, or edema. NEURO: Alert & Oriented x4 to person, place, time, situation. Moves all ext x4. Somewhat tremulous. PSYCH: Appropriate mood and affect. Results - Labs CBC & Chem 7: 01/12/18 12:40 01/12/18 06:38 Laboratory Results - last 24 hr 01/11/18 01/11/18 01/11/18 14:17 16:23 20:01 WBC RBC Hgb 9.2 L Hct 27.2 L MCV MCH MCHC RDW Plt Count MPV Prelim Diff (Auto) Neut % (Auto) Lymph % (Auto) [place] % (Auto) Eos % (Auto) Baso % (Auto) Neut # (Auto) Lymph # (Auto) [place] # (Auto) Eos # (Auto) Baso # (Auto) WBC Differential Seg Neuts % (Manual) Band Neuts % (Manual) Lymphocytes % (Manual) Monocytes % (Manual) Eosinophils % (Manual) Basophils % (Manual) Metamyelocytes % (Man) Myelocytes % (Man) Abs Neuts (Manual) Differential Comment Toxic Granulation Platelet Estimate Platelet Morphology Polychromasia PT INR Sodium Potassium Chloride Carbon Dioxide Anion Gap BUN Creatinine Estimated GFR POC Glucose 100 118 H Random Glucose Calcium Prot Corrected Calcium Total Bilirubin AST ALT Alkaline Phosphatase Total Protein Albumin 01/11/18 01/12/18 01/12/18 20:55 06:38 06:38 WBC RBC Hgb Hct MCV MCH MCHC RDW Plt Count MPV Prelim Diff (Auto) Neut % (Auto) Lymph % (Auto) [place] % (Auto) Eos % (Auto) Baso % (Auto) Neut # (Auto) Lymph # (Auto) [place] # (Auto) Eos # (Auto) Baso # (Auto) WBC Differential Seg Neuts % (Manual) Band Neuts % (Manual) Lymphocytes % (Manual) Monocytes % (Manual) Eosinophils % (Manual) Basophils % (Manual) Metamyelocytes % (Man) Myelocytes % (Man) Abs Neuts (Manual) Differential Comment Toxic Granulation Platelet Estimate Platelet Morphology Polychromasia PT 9.6 L INR 0.9 Sodium 141 Potassium 3.6 Chloride 106 Carbon Dioxide 28.1 Anion Gap 7 BUN 6 L Creatinine 0.55 L Estimated GFR Greater than 89 POC Glucose 123 H Random Glucose 129 H Calcium 7.4 L* Prot Corrected Calcium 8.6 Total Bilirubin 0.1 L AST 29 ALT 30 Alkaline Phosphatase 48 Total Protein 4.9 L Albumin 2.2 L 01/12/18 01/12/18 01/12/18 06:38 08:03 11:33 WBC 7.6 RBC 2.74 L Hgb 8.8 L Hct 25.7 L MCV 93.8 MCH 32.1 MCHC 34.2 RDW 16.4 Plt Count 282 MPV 7.6 Prelim Diff (Auto) Slide review pending Neut % (Auto) 63.7 Lymph % (Auto) 21.0 [place] % (Auto) 12.3 H Eos % (Auto) 1.9 Baso % (Auto) 1.1 Neut # (Auto) 4.9 Lymph # (Auto) 1.6 [place] # (Auto) 0.9 Eos # (Auto) 0.1 Baso # (Auto) 0.1 WBC Differential Manual diff final Seg Neuts % (Manual) 56 Band Neuts % (Manual) 6 Lymphocytes % (Manual) 18 Monocytes % (Manual) 15 H Eosinophils % (Manual) 1 Basophils % (Manual) 1 Metamyelocytes % (Man) 1 Myelocytes % (Man) 2 H Abs Neuts (Manual) 4.9 Differential Comment . Toxic Granulation 1+ H Platelet Estimate Normal Platelet Morphology Normal Polychromasia 2.0 H PT INR Sodium Potassium Chloride Carbon Dioxide Anion Gap BUN Creatinine Estimated GFR POC Glucose 125 H 160 H Random Glucose Calcium Prot Corrected Calcium Total Bilirubin AST ALT Alkaline Phosphatase Total Protein Albumin 01/12/18 12:40 WBC RBC Hgb 8.8 L Hct 24.0 L MCV MCH MCHC RDW Plt Count MPV Prelim Diff (Auto) Neut % (Auto) Lymph % (Auto) [place] % (Auto) Eos % (Auto) Baso % (Auto) Neut # (Auto) Lymph # (Auto) [place] # (Auto) Eos # (Auto) Baso # (Auto) WBC Differential Seg Neuts % (Manual) Band Neuts % (Manual) Lymphocytes % (Manual) Monocytes % (Manual) Eosinophils % (Manual) Basophils % (Manual) Metamyelocytes % (Man) Myelocytes % (Man) Abs Neuts (Manual) Differential Comment Toxic Granulation Platelet Estimate Platelet Morphology Polychromasia PT INR Sodium Potassium Chloride Carbon Dioxide Anion Gap BUN Creatinine Estimated GFR POC Glucose Random Glucose Calcium Prot Corrected Calcium Total Bilirubin AST ALT Alkaline Phosphatase Total Protein Albumin Assessment and Plan - Plan 57-year-old male with: GI bleeding: - Appreciated GI following. EGD revealed large nonbleeding ulcer in the duodenum. Status post epinephrine and cauterization. - Continue octreotide and Protonix drip. Further plans per GI. Will need colonoscopy outpatient per GI. - Continue to monitor for bleeding. -Discontinue prophylactic Rocephin. -Diet as tolerated. Acute blood loss anemia secondary to GI bleeding Status post total of 6 units of PRBC transfusion. Hemoglobin stable today. Continue to monitor. EtOH dependence CIWA protocol Thiamine/MVI/folic acid. Patient extensively counseled regarding cessation. Tobacco abuse Tobacco cessation counseling discussed Has a nicotine patch in place. Acute hyperglycemia Monitor bedside glucose every 6 hours and administer low-dose insulin sliding scale as indicated PROPH: SCDs for DVT prophylaxis. Pharmacologic DVT prophylaxis is contraindicated due to GI bleeding. Discharge Planning: Okay to transfer to floor. PT eval. Anticipate discharge in the next 24-48 hours.
[2018-01-13] MEDS: Thiamine Inj 100 MG in Sodium Chlor 0.9% Inj 100 ML IV.SIG SCH (02:16)
[2018-01-13] MEDS: Morphine Sulfate Inj 2 MG/ML Vial IV.PUSH PRN ×2 (02:16→08:26)
[2018-01-13 07:24] LABS: Hematocrit 26.7 % (39.0-51.0); Hemoglobin 9.2 gm/dL (13.0-17.0); Mean Corpuscular HGB Conc 34.5 % (32.0-36.0); Mean Corpuscular Hemoglobin 32.4 pg (27.0-34.0); Mean Corpuscular Volume 93.9 fL (80.0-100.0); Mean Platelet Volume 7.4 fL (7.0-11.0); Platelet Count 400 th/mm3 (150-450); Red Blood Count 2.85 mil/mm3 (4.50-5.90); Red Cell Distribution Width 17.2 % (11.6-17.2); White Blood Count 7.8 th/mm3 (4.0-11.0)
[2018-01-13 07:32] LABS: INR 0.9 Ratio; Prothrombin Time 9.4 sec (9.8-11.6)
[2018-01-13 07:52] LABS: Alanine Aminotransferase 33 U/L (12-78); Albumin 2.5 g/dL (3.4-5.0); Anion Gap 8 meq/L (5-15); Aspartate Aminotransferase 27 U/L (15-37); Blood Urea Nitrogen 10 mg/dL (7-18); Calcium 8.2 mg/dL (8.5-10.1); Carbon Dioxide 29.4 meq/L (21.0-32.0); Chloride 104 meq/L (98-107); Glomerular Filtration Rate Greater Than 89 mL/min (>89); Glucose,Random 114 mg/dL (74-106); Potassium 3.8 meq/L (3.5-5.1); Sodium 141 meq/L (136-145)
[2018-01-13 07:55] LABS: Alkaline Phosphatase 53 U/L (45-117); Total Protein 5.5 g/dL (6.4-8.2)
[2018-01-13 08:15] VITALS: BP 128/72; RESP 16; TEMP 97.8
[2018-01-13] MEDS: Insulin NovoLOG Aspart Correctional Sugar Inj SQ SCH (08:15)
[2018-01-13] MEDS: Folic Acid 1 MG Tablet PO SCH (08:26)
[2018-01-13] MEDS: Multivitamin/Minerals Therapeutic Tablet PO SCH (08:26)
[2018-01-13 09:45] VITALS: PULSE 73
--- NOTE | 2018-01-13 10:13 | P.DS ---
Date of admission: 01/09/18 13:44 Primary care physician: No Primary Care Physician Brief History from admission: HPI from the admitting physician. PATIENT IS A 57 YEAR OLD MALE WHO PRESENTED TO THE EMERGENCY DEPARTMENT AT [facility] BY EMS FOR EVALUATION OF BLACK AND TARRY STOOLS WITH SOME DARK RED BLOOD FOR THE PAST WEEK. HE HAS ALSO HAD WORSENING ABDOMINAL PAIN FOR AT LEAST THE PAST 2 WEEKS. She states that he chronically has epigastric abdominal pain but it is been worsening over the past several weeks. He also reports weakness and dizziness. At this epigastric and abdominal pain is 20 out of 10 patient states that he has no chronic medical problems and takes no prescribed medications he does admit to drinking alcohol at a minimum of 16 beers a day but probably drinks a lot more than that he states all of these have the alcohol percentage of 9%. He denies any Motrin, Aleve, ibuprofen, aspirin. He states she is not taking any medications at all. He states he is also had some vomiting several times with blood in his emesis patient is noted to have melena and hematemesis and noted to have a heme positive stool with black tarry stools patient denies using any magnesium products. Family history he denies any history of hypertension or diabetes in his mother or father that he knows of Patient drinks alcohol every day. And smokes at least a pack of cigarettes a day Patient update on day of discharge: Patient reports he is feeling great. Tolerating his diet. No longer having dark stool. Feels stronger. DS: Diagnosis - Discharge Diagnosis (1) Alcohol abuse Status: Acute (2) GI bleed Status: Acute DS: Medications - Discharge Medications Prescriptions: pantoprazole 40 mg PO BID #60 tab DS: Summary Hospital Course: 57-year-old male admitted for acute GI bleeding. EGD revealed large nonbleeding ulcer in the duodenum, Status post epinephrine and cauterization. Patient treated with octreotide and Protonix drip. He is advised to have outpatient colonoscopy. Patient did have acute blood loss anemia secondary to GI bleeding. He received a total of 6 units of PRBC transfusion. He was treated per [facility] protocol for alcohol withdrawal. He was extensively counseled regarding complete cessation of alcohol use. The patient was also counseled against using tobacco products. He is discharged home in stable condition and advised to follow-up outpatient with GI. - Time Spent with Patient Total time spent providing and/or coordinating discharge services: Less than 30 minutes - Quality: VTE Deep Vein Thrombosis/Pulmonary Embolism Present on Admission: No Exam Vital signs: Vital Signs 01/12/18 10:14 01/12/18 12:00 01/12/18 16:00 Temperature 98.2 F 97.7 F Pulse Rate 81 79 Respiratory Rate 22 21 24 Blood Pressure 129/67 120/70 Pulse Oximetry 99 98 01/12/18 20:00 01/12/18 20:03 01/12/18 23:55 Temperature 97.7 F 97.2 F L Pulse Rate 78 80 Respiratory Rate 20 22 Blood Pressure 125/74 119/68 Pulse Oximetry 100 99 01/13/18 02:39 01/13/18 04:00 01/13/18 08:00 Temperature 97.7 F 97.8 F Pulse Rate 73 78 Respiratory Rate 22 17 16 Blood Pressure 121/75 128/72 Pulse Oximetry 97 01/13/18 09:00 Temperature Pulse Rate 73 Respiratory Rate Blood Pressure Pulse Oximetry Intake & Output 01/12/18 01/13/18 01/13/18 18:59 06:59 18:59 Intake Total 1561 / 1561 201 / 201 0 / 0 Output Total 1999 Balance -439 / -439 201 / 201 0 / 0 Intake: IV 711 / 711 201 / 201 Thiamine Inj 100 MG In NS Inj 101 / 101 101 / 101 100 ML @ 100 mls/hr IV.SIG Q24H RYAN Rx#:[id number] Rocephin Inj 1,000 MG In NS Inj 100 / 100 100 / 100 100 ML @ 200 mls/hr IV.SIG Q24H RYAN Rx#:[id number] Oral 850 / 850 0 / 0 0 / 0 Output: Urine 1999 Other: # Voids 5 1 Date of Last Bowel Movement 01/10/18 01/10/18 01/10/18 # Bowel Movements 2 Narrative: GENERAL: This is a well-nourished, well-developed patient, in no apparent distress. CARDIOVASCULAR: Normal rate and regular rhythm without murmurs, gallops, or rubs. RESPIRATORY: Good respiratory efforts. Breath sounds equal and clear to auscultation bilaterally. GASTROINTESTINAL: Abdomen soft, non-tender, non-distended. Normal active bowel sounds MUSCULOSKELETAL: Extremities without cyanosis, or edema. NEURO: Alert & Oriented x4 to person, place, time, situation. Moves all ext x4 PSYCH: Appropriate mood and affect. Results Procedures completed during hospitalization: EGD Labs on day of discharge: Labs from last 24 hours 01/13/18 01/13/18 01/13/18 08:03 06:55 06:55 WBC 7.8 RBC 2.85 L Hgb 9.2 L Hct 26.7 L MCV 93.9 MCH 32.4 MCHC 34.5 RDW 17.2 Plt Count 400 D MPV 7.4 PT INR Sodium 141 Potassium 3.8 Chloride 104 Carbon Dioxide 29.4 Anion Gap 8 BUN 10 Creatinine 0.56 L Estimated GFR Greater than 89 POC Glucose 121 H Random Glucose 114 H Calcium 8.2 L D Total Bilirubin 0.1 L AST 27 ALT 33 Alkaline Phosphatase 53 Total Protein 5.5 L D Albumin 2.5 L 01/13/18 01/12/18 01/12/18 06:55 17:15 12:40 WBC RBC Hgb 8.8 L Hct 24.0 L MCV MCH MCHC RDW Plt Count MPV PT 9.4 L INR 0.9 Sodium Potassium Chloride Carbon Dioxide Anion Gap BUN Creatinine Estimated GFR POC Glucose 127 H Random Glucose Calcium Total Bilirubin AST ALT Alkaline Phosphatase Total Protein Albumin 01/12/18 11:33 WBC RBC Hgb Hct MCV MCH MCHC RDW Plt Count MPV PT INR Sodium Potassium Chloride Carbon Dioxide Anion Gap BUN Creatinine Estimated GFR POC Glucose 160 H Random Glucose Calcium Total Bilirubin AST ALT Alkaline Phosphatase Total Protein Albumin - Impressions ITS Impressions Abdomen/Pelvis CT 01/09/18 11:25 CONCLUSION: 1. Large stool burden identified within an otherwise normal-appearing colon. No abnormal wall thickening is appreciated. 2. Fatty infiltration of the liver. Chest X-Ray 01/09/18 11:25 CONCLUSION: Lungs are clear. Multiple loose bodies overlying left shoulder. Old healed right clavicle fracture. Discharge Plan - Discharge Disposition Patient Disposition: 01 Discharge Home - Discharge Condition Condition: Good - Discharge Order Discharge Orders: Discharge Order (Routine); Ordered 01/13/18 Ordered By: Moriah Ordonez - Physicians Team Primary Care Provider: Primary Care Lorettai,No Attending Provider: Moriah Ordonez Other Providers: Jac Barreto MD
[2018-01-13 15:08] VITALS: O2SAT 100
== END 2018-01-13 13:13 | disposition home or self-care (01) ==
LOC: NEPC 13:16 → NEDA 13:44 → N06 16:23 → N03 01-10 00:15
PROVIDERS: ADMIT Family Medicine; ATTEND Family Medicine
PROC: PANENDO (2018-01-10 13:43)

== ENCOUNTER 2018-03-03 12:38 | Inpatient (IN) ==
[2018-03-03] MEDS ORDERED: Pantoprazole Inj 40 MG Vial IV.PUSH ONE (13:52)
[2018-03-03] MEDS ORDERED: Sod Chloride 0.9% Inj 1,000 ML IV.SIG ONE (13:52)
[2018-03-03] MEDS ORDERED: Morphine Sulfate Inj 2 MG/ML Vial IV.PUSH ONE (14:22)
[2018-03-03 14:23] LABS: Baso # (Auto) 0.1 th/mm3 (0.0-0.2); Baso % (Auto) 1.1 % (0.0-2.0); Eos # (Auto) 0.2 th/mm3 (0.0-0.4); Eos % (Auto) 1.9 % (0.0-4.0); Hematocrit 32.6 % (39.0-51.0); Hemoglobin 10.9 gm/dL (13.0-17.0); Lymph # (Auto) 1.8 th/mm3 (1.0-4.8); Lymph % (Auto) 22.5 % (9.0-44.0); Mean Corpuscular HGB Conc 33.5 % (32.0-36.0); Mean Corpuscular Hemoglobin 30.8 pg (27.0-34.0); Mean Platelet Volume 7.2 fL (7.0-11.0); Mono # (Auto) 1.2 th/mm3 (0.0-0.9); Mono % (Auto) 15.1 % (0.0-8.0); Neut # (Auto) 4.6 th/mm3 (1.8-7.7); Neut % (Auto) 59.4 % (16.0-70.0); Platelet Count 313 th/mm3 (150-450); Red Blood Count 3.54 mil/mm3 (4.50-5.90); Red Cell Distribution Width 16.3 % (11.6-17.2); White Blood Count 7.8 th/mm3 (4.0-11.0)
[2018-03-03 14:28] LABS: Activated Partial Thrombo Time 23.1 sec (24.3-30.1); Prothrombin Time 9.9 sec (9.8-11.6)
--- NOTE | 2018-03-03 14:29 | ED ---
HPI General Chief complaint: GI Bleed Stated complaint: GI Complaint Time Seen by Provider: 03/03/18 13:43 History of Present Illness HPI Narrative: Patient presents to the emergency department with abdominal pain and GI bleed. States he was seen a month ago and his "stomach erupted and I was bleeding." Complaint of diffuse severe abdominal pain, greater than 10 out of 10, constant, aggravated by "everything," and alleviated by nothing. Reporting bloody bowel movement that started yesterday with limited stool but a lot of bright red blood. He is also reporting nausea and vomiting but denies vomiting any blood. Last meal was 4 days ago. States that he tried Rolaids and that helped initially but the pain came back. He is also a drinker and he states that he had a couple of beers this morning. He denies fever, chest pain , but reports some shortness of breath and chills and nausea and vomiting. Patient apparently was admitted in January for GI bleed with a hemoglobin of 6 , he underwent an EGD which showed a large nonbleeding duodenal ulcer. He was advised to stop smoking and drinking alcohol and to get an colonoscopy. He continues to both smoke and drink alcohol. Related Data Home Medications Medication Instructions Recorded Confirmed No Known Home Medications 01/09/18 03/03/18 Allergies Allergy/AdvReac Type Severity Reaction Status Date / Time No Known Allergies Allergy Unverified 01/09/18 11:12 Review of Systems ROS: all other systems reviewed are negative [facility] Medical History Medical History GI bleed (Acute) Alcohol abuse (Acute) Anemia (Acute) Pancreatitis (Acute) Patient denies significant medical history (Acute) Tobacco abuse (Acute) Social History Social History Substance History: No History of Abuse Second Hand Smoke Exposure: Yes Smoking Status: Heavy tobacco smoker Tobacco Type: Cigarettes How Often Do You Have a Drink Containing Alcohol: 4 or more times a week Hx Recent Travel: No Recent Travel in [facility] within the Last 8 Weeks: No Recent Out of Country Travel within the Last 8 Weeks: No Immunization History Tetanus Immunization: Unsure Exam Narrative Exam Narrative: GENERAL: No acute distress. Smells of heavy EtOH. SKIN: Focused skin assessment warm/dry. HEAD: Atraumatic. Normocephalic. EYES: Pupils equal and round. No scleral icterus. No injection or drainage. ENT: No nasal bleeding or discharge. Mucous membranes pink and moist. NECK: Trachea midline. No JVD. CARDIOVASCULAR: Regular rate and rhythm. No murmur appreciated. RESPIRATORY: No accessory muscle use. Clear to auscultation. Breath sounds equal bilaterally. GASTROINTESTINAL: Abdomen soft, diffusely tender, nondistended. Rectal+ Bloody stool, guaiac + MUSCULOSKELETAL: No obvious deformities. No clubbing. No cyanosis. No edema. NEUROLOGICAL: Awake and alert. No obvious cranial nerve deficits. Motor grossly within normal limits. Normal speech. PSYCHIATRIC: Appropriate mood and affect; insight and judgment normal. Course Initial Documented Vital Signs Temperature 97.3 F L 03/03/18 13:00 Pulse Rate 107 H 03/03/18 13:00 Respiratory Rate 16 03/03/18 13:00 Blood Pressure 112/73 03/03/18 13:00 Pulse Oximetry 97 03/03/18 13:00 Last Documented Vital Signs Temperature 97.3 F L 03/03/18 13:00 Pulse Rate 107 H 03/03/18 13:00 Respiratory Rate 16 03/03/18 13:00 Blood Pressure 112/73 03/03/18 13:00 Pulse Oximetry 97 03/03/18 13:00 Medical Decision Making MDM Narrative Medical decision making narrative: Patient presents to the emergency department complaining of abdominal pain and bloody diarrhea. Patient placed on a monitor tech, continuous pulse ox, and IV access obtained. CT abdomen and pelvis, EKG, chest x-ray and labs ordered. Patient also given 2 mg IV morphine for pain , 1 L IV normal saline, and 40 mg IV Protonix. 1704: Ct scan + diverticulosis. CXR showed mild pulmonary edema. Patien thas been admitte o hospitalist with BNP pending. Medical Screen Exam Complete: Yes Emergency Medical Condition: Yes Lab Data Result diagrams: 03/03/18 14:00 03/03/18 14:00 Lab Results 03/03/18 03/03/18 03/03/18 Range/Units 14:00 14:00 14:00 WBC 7.8 (4.0-11.0) th/mm3 RBC 3.54 L (4.50-5.90) mil/mm3 Hgb 10.9 L (13.0-17.0) gm/dL Hct 32.6 L (39.0-51.0) % MCV 92.0 (80.0-100.0) fL MCH 30.8 (27.0-34.0) pg MCHC 33.5 (32.0-36.0) % RDW 16.3 (11.6-17.2) % Plt Count 313 (150-450) th/mm3 MPV 7.2 (7.0-11.0) fL Neut % (Auto) 59.4 (16.0-70.0) % Lymph % (Auto) 22.5 (9.0-44.0) % Mcminn % (Auto) 15.1 H (0.0-8.0) % Eos % (Auto) 1.9 (0.0-4.0) % Baso % (Auto) 1.1 (0.0-2.0) % Neut # (Auto) 4.6 (1.8-7.7) th/mm3 Lymph # (Auto) 1.8 (1.0-4.8) th/mm3 Mcminn # (Auto) 1.2 H (0.0-0.9) th/mm3 Eos # (Auto) 0.2 (0.0-0.4) th/mm3 Baso # (Auto) 0.1 (0.0-0.2) th/mm3 WBC Differential . Differential Comment Auto diff final PT 9.9 (9.8-11.6) sec INR 1.0 Ratio APTT 23.1 L (24.3-30.1) sec Sodium 141 (136-145) meq/L Potassium 3.6 (3.5-5.1) meq/L Chloride 105 (98-107) meq/L Carbon Dioxide 26.7 (21.0-32.0) meq/L Anion Gap 9 (5-15) meq/L BUN 7 (7-18) mg/dL Creatinine 0.64 (0.60-1.30) mg/dL Estimated GFR Greater than 89 (>89) mL/min Random Glucose 83 (74-106) mg/dL Calcium 9.4 (8.5-10.1) mg/dL Magnesium 1.8 (1.5-2.5) mg/dL Total Bilirubin 0.2 (0.2-1.0) mg/dL AST 28 (15-37) U/L ALT 41 (12-78) U/L Alkaline Phosphatase 56 (45-117) U/L Troponin I (0.02-0.05) ng/mL Total Protein 6.1 L (6.4-8.2) g/dL Albumin 3.1 L (3.4-5.0) g/dL Lipase 207 (73-393) U/L Serum Alcohol 103 H (0-5) mg/dL Blood Type Blood Type Recheck Antibody Screen 03/03/18 03/03/18 Range/Units 14:00 14:00 WBC (4.0-11.0) th/mm3 RBC (4.50-5.90) mil/mm3 Hgb (13.0-17.0) gm/dL Hct (39.0-51.0) % MCV (80.0-100.0) fL MCH (27.0-34.0) pg MCHC (32.0-36.0) % RDW (11.6-17.2) % Plt Count (150-450) th/mm3 MPV (7.0-11.0) fL Neut % (Auto) (16.0-70.0) % Lymph % (Auto) (9.0-44.0) % Mcminn % (Auto) (0.0-8.0) % Eos % (Auto) (0.0-4.0) % Baso % (Auto) (0.0-2.0) % Neut # (Auto) (1.8-7.7) th/mm3 Lymph # (Auto) (1.0-4.8) th/mm3 Mcminn # (Auto) (0.0-0.9) th/mm3 Eos # (Auto) (0.0-0.4) th/mm3 Baso # (Auto) (0.0-0.2) th/mm3 WBC Differential Differential Comment PT (9.8-11.6) sec INR Ratio APTT (24.3-30.1) sec Sodium (136-145) meq/L Potassium (3.5-5.1) meq/L Chloride (98-107) meq/L Carbon Dioxide (21.0-32.0) meq/L Anion Gap (5-15) meq/L BUN (7-18) mg/dL Creatinine (0.60-1.30) mg/dL Estimated GFR (>89) mL/min Random Glucose (74-106) mg/dL Calcium (8.5-10.1) mg/dL Magnesium (1.5-2.5) mg/dL Total Bilirubin (0.2-1.0) mg/dL AST (15-37) U/L ALT (12-78) U/L Alkaline Phosphatase (45-117) U/L Troponin I Less than 0.02 L (0.02-0.05) ng/mL Total Protein (6.4-8.2) g/dL Albumin (3.4-5.0) g/dL Lipase (73-393) U/L Serum Alcohol (0-5) mg/dL Blood Type A Positive Blood Type Recheck Not needed Antibody Screen Negative Imaging Data Radiologist's impression: Chest X-Ray 03/03/18 13:52 CONCLUSION: Mild interstitial edema suspicious for congestive failure. Abdomen/Pelvis CT 03/03/18 13:55 CONCLUSION: 1. Mild to moderate diverticulosis with no definite inflammatory change. There is a nonobstructive bowel gas pattern. 2. The gallbladder is decompressed but otherwise unremarkable. 3. Moderate to severe hepatic steatosis again noted. ECG Data Attestation: I personally reviewed and interpreted this ECG as follows: ( QTC 402, normal intervals, Sinus rhythm, left axis deviation, rate 84,) Discharge Plan Discharge Disposition Patient Disposition: 30 Still Patient Discharge Condition Condition: Stable Discharge Details Diagnosis: GI bleed Physicians Team ED Provider: Rani Batista Primary Care Provider: Primary Care Radha Fontaine Attending Provider: Pop Narayan Status ED Status: Admitted Patient
[2018-03-03 14:37] LABS: Alanine Aminotransferase 41 U/L (12-78); Albumin 3.1 g/dL (3.4-5.0); Anion Gap 9 meq/L (5-15); Aspartate Aminotransferase 28 U/L (15-37); Blood Urea Nitrogen 7 mg/dL (7-18); Calcium 9.4 mg/dL (8.5-10.1); Carbon Dioxide 26.7 meq/L (21.0-32.0); Chloride 105 meq/L (98-107); Glomerular Filtration Rate Greater Than 89 mL/min (>89); Glucose,Random 83 mg/dL (74-106); Lipase 207 U/L (73-393); Magnesium 1.8 mg/dL (1.5-2.5); Potassium 3.6 meq/L (3.5-5.1); Sodium 141 meq/L (136-145)
[2018-03-03 14:39] LABS: Alkaline Phosphatase 56 U/L (45-117); Total Protein 6.1 g/dL (6.4-8.2)
[2018-03-03 14:49] LABS: Alcohol 103 mg/dL (0-5)
--- NOTE | 2018-03-03 14:53 | XR ---
EXAM DATE: 03/03/2018 2:45 PM EDT AGE/SEX: 57 years / Male INDICATIONS: Shortness of breath. CLINICAL DATA: This is the patient's initial encounter. Patient reports that signs and symptoms have been present for 1 day and indicates a pain score of 0/10. MEDICAL/SURGICAL HISTORY: None. None. [place] [facility] [place]. . FINDINGS: Heart is enlarged. Mild interstitial edema is evident. There is no other consolidation, pleural effus ion or pneumothorax. Moderate degenerative changes about both shoulders. CONCLUSION: Mild interstitial edema suspicious for congestive failure. Electronically signed by: Pop Dixon MD 03/03/2018 2:51 PM EDT
--- NOTE | 2018-03-03 16:13 | CT ---
EXAM DATE: 03/03/2018 4:00 PM EDT AGE/SEX: 57 years / Male INDICATIONS: Abdominal pain, bloody stools CLINICAL DATA: This is the patient's initial encounter. Patient reports that signs and symptoms have been present for 1 day and indicates a pain score of 8/10. MEDICAL/SURGICAL HISTORY: Anemia. Pancreatitis. None. ORAL CONTRAST: No oral contrast ingested. RADIATION DOSE: 6.18 CTDI (mGy) COMPARISON: [facility] [place] ABDOMEN & PELVIS W CONTRAST, 01/09/2018. . TECHNIQUE: Multiple contiguous axial images were obtained through the abdomen and pelvis following b olus infusion of 70 ml Omnipaque 350 (iohexol) nonionic water-soluble contrast as a single exam dos e. No oral contrast ingested. Using automated exposure control and adjustment of the mA and/or kV ac cording to patient size, radiation dose was kept as low as reasonably achievable to obtain optimal di agnostic quality images. DICOM format image data is available electronically for review and comparis on. FINDINGS: Lower Lungs: The visualized lower lungs are clear. Liver: The liver has a homogeneous density without space-occupying lesion. There is no dilation of th e biliary tree. There is moderate to severe fatty infiltration of the liver. The gallbladder is decom pressed. There are no calcified stones. Spleen: Homogeneous density without enlargement. Pancreas: Unremarkable without mass or calcification. Kidneys: Normal in size and shape. No evidence of mass or hydronephrosis. Adrenal Glands: Unremarkable. Aorta: The aorta and proximal iliac vessels are grossly unremarkable without aneurysmal dilation. Bowel/Mesentery: There is limited oral opacification of bowel with residual contrast noted in the co indu. There are multiple diverticuli in the sigmoid colon with no definite inflammatory change. There is no free air or fluid. Abdominal Wall: Intact. Retroperitoneum: No evidence of adenopathy in the retrocrural, para-aortic, or deep pelvic regions. Bladder: Contours are smooth. Reproductive Organs: No abnormal masses or calcifications seen. Inguinal: The inguinal region is unremarkable without evidence of adenopathy. Bony Structures: Unremarkable. CONCLUSION: 1. Mild to moderate diverticulosis with no definite inflammatory change. There is a nonobstructive b owel gas pattern. 2. The gallbladder is decompressed but otherwise unremarkable. 3. Moderate to severe hepatic steatosis again noted. Electronically signed by: Vincenzo Rothman MD 03/03/2018 4:12 PM EDT
[2018-03-03] MEDS ORDERED: Acetaminophen 325 MG Tablet PO PRN ×2 (17:07→17:10)
[2018-03-03] MEDS ORDERED: Naloxone Inj 0.4 MG/ML Vial IV.PUSH PRN ×2 (17:07→17:10)
[2018-03-03] MEDS ORDERED: Bisacodyl 10 MG Supp RECTAL PRN (17:07)
[2018-03-03] MEDS ORDERED: Haloperidol Inj 5 MG/ML Ampul IV.PUSH PRN (17:12)
[2018-03-03] MEDS ORDERED: LORazepam 1 MG Tablet PO PRN (17:12)
--- NOTE | 2018-03-03 17:16 | P.HP ---
History of Present Illness Service: [facility] Primary Care Physician: No Primary Care Physician Chief Complaint: Stomach pain History of Present Illness: 57-year-old male with past medical history significant for pancreatitis, anemia, tobacco, alcohol abuse, and GI bleed who presents to the emergency department with complaints of complains of abdominal pain the began 1 week ago through entire top area of abdomen, he has noticed that pain has also worsened from a week ago. Pain 20/10 throbbing, does not radiate. Patient states that he was trying Rolaids at home with no effect. Sitting make pain better, nothing seems to make it better. He has been having nausea and vomiting for the past 3-4 days. Denies hematemesis just what he describes as bile. States that for the past 2 day he has been having blood BM's with a combination of dark and bright red blood. Prior to this he was having diarrhea for about a week. He also endorses lightheadedness, denies chest pain or palpitations. Denies any fevers or chills. Is requesting something for abdominal pain and is also requesting to drink, no other concerns. - Diagnosis (1) Abdominal pain (2) GI bleed (3) Alcohol abuse Inpatient Certification: I certify that the inpatient services were ordered in accordance with Medicare regulations governing the order. This includes certification that hospital inpatient services are reasonable and necessary and in the case of services not specified as inpatient-only under 42 CFR 419.22(n), that they are appropriately provided as inpatient services in accordance to with the 2-midnight benchmark under 43 CFR 412.3(e) Estimated Total Length of Stay (Days): 2 Plans for Post Hospital Care: Home Review of Systems All other systems reviewed negative except as stated in [facility] - History History Provided By: Patient - Medical History Medical History: Medical History (Last Reviewed 03/03/18 @ 17:34 by Diamond Noble) GI bleed Alcohol abuse Anemia Pancreatitis Tobacco abuse - Family History Family History: Family History (Last Reviewed 03/03/18 @ 17:10 by Diamond Noble) Other Family history normal - Tobacco History Second Hand Smoke Exposure: Yes Tobacco Use In Past 30 Days: Yes Smoking Status: Heavy tobacco smoker Tobacco Type: Cigarettes (1PPDx 20yrs) - Alcohol History How Often Do You Have a Drink Containing Alcohol: 4 or more times a week - Substance Use History Substance History: No History of Abuse - Travel History History of Recent Travel: No Recent Travel in the [place] Within the Last 8 Weeks: No Recent Travel Out of the Country Within the Last 8 Weeks: No - Immunization History Tetanus Immunization: Unsure Medications and Allergies Active Medications: Active Medications Sodium Chloride (Ns Flush) 2 ml IV.FLUSH PRN PRN PRN Reason: FLUSH AFTER USING IV ACCESS Last Admin: 03/03/18 14:05 Dose: 2 ml Allergies Allergy/AdvReac Type Severity Reaction Status Date / Time No Known Allergies Allergy Unverified 01/09/18 11:12 Home Medications Medication Instructions Recorded Confirmed Type No Known Home Medications 01/09/18 03/03/18 History Exam Vital signs: Vital Signs 03/03/18 13:00 Temperature 97.3 F L Pulse Rate 107 H Respiratory Rate 16 Blood Pressure 112/73 Pulse Oximetry 97 Intake & Output 03/02/18 03/03/18 03/03/18 18:59 06:59 18:59 Intake Total 1000 / 1000 Balance 1000 / 1000 Weight 63.503 kg Intake: IV 1000 / 1000 NS Inj 1,000 ML @ Wide Open IV. 1000 / 1000 SIG BOLUS ONE Rx#:[id number] Narrative: GENERAL: Well-nourished, well-developed male in no acute distress. SKIN: Warm and dry. HEAD: Atraumatic. Normocephalic. EYES: Pupils equal and round. No scleral icterus. No injection or drainage. ENT: No nasal bleeding or discharge. Mucous membranes pink and moist. NECK: Trachea midline. No JVD. CARDIOVASCULAR: Regular rate and rhythm. RESPIRATORY: No accessory muscle use. Clear to auscultation. Breath sounds equal bilaterally. GASTROINTESTINAL: Abdomen soft, nondistended, diffuse tenderness. + Bowel sounds MUSCULOSKELETAL: Extremities without clubbing, cyanosis, or edema. No obvious deformities. NEUROLOGICAL: Awake, alert, oriented x3. No obvious cranial nerve deficits. Motor grossly within normal limits. Five out of 5 muscle strength in the arms and legs. Normal speech. PSYCHIATRIC: Appropriate mood and affect; insight and judgment normal. Results - Labs CBC & Chem 7: 03/03/18 14:00 03/03/18 14:00 Labs: Laboratory Results - last 24 hr 03/03/18 03/03/18 03/03/18 14:00 14:00 14:00 WBC 7.8 RBC 3.54 L Hgb 10.9 L Hct 32.6 L MCV 92.0 MCH 30.8 MCHC 33.5 RDW 16.3 Plt Count 313 MPV 7.2 Neut % (Auto) 59.4 Lymph % (Auto) 22.5 [place] % (Auto) 15.1 H Eos % (Auto) 1.9 Baso % (Auto) 1.1 Neut # (Auto) 4.6 Lymph # (Auto) 1.8 [place] # (Auto) 1.2 H Eos # (Auto) 0.2 Baso # (Auto) 0.1 WBC Differential . Differential Comment Auto diff final PT 9.9 INR 1.0 APTT 23.1 L Sodium 141 Potassium 3.6 Chloride 105 Carbon Dioxide 26.7 Anion Gap 9 BUN 7 Creatinine 0.64 Estimated GFR Greater than 89 Random Glucose 83 Calcium 9.4 Magnesium 1.8 Total Bilirubin 0.2 AST 28 ALT 41 Alkaline Phosphatase 56 Troponin I Total Protein 6.1 L Albumin 3.1 L Lipase 207 Serum Alcohol 103 H Blood Type Blood Type Recheck Antibody Screen 03/03/18 03/03/18 14:00 14:00 WBC RBC Hgb Hct MCV MCH MCHC RDW Plt Count MPV Neut % (Auto) Lymph % (Auto) [place] % (Auto) Eos % (Auto) Baso % (Auto) Neut # (Auto) Lymph # (Auto) [place] # (Auto) Eos # (Auto) Baso # (Auto) WBC Differential Differential Comment PT INR APTT Sodium Potassium Chloride Carbon Dioxide Anion Gap BUN Creatinine Estimated GFR Random Glucose Calcium Magnesium Total Bilirubin AST ALT Alkaline Phosphatase Troponin I Less than 0.02 L Total Protein Albumin Lipase Serum Alcohol Blood Type A Positive Blood Type Recheck Not needed Antibody Screen Negative - Imaging Impressions Chest X-Ray 03/03/18 13:52 CONCLUSION: Mild interstitial edema suspicious for congestive failure. Abdomen/Pelvis CT 03/03/18 13:55 CONCLUSION: 1. Mild to moderate diverticulosis with no definite inflammatory change. There is a nonobstructive bowel gas pattern. 2. The gallbladder is decompressed but otherwise unremarkable. 3. Moderate to severe hepatic steatosis again noted. Caprini VTE Risk Assessment Caprini VTE Risk Assessment: No/Low Risk (score <= 1) Caprini Risk Assessment Model: Point Value = 1 Point Value = 2 Point Value = 3 Point Value = 5 Age 41-60 Minor surgery BMI > 25 kg/m2 Swollen legs Varicose veins or History of unexplained or recurrent spontaneous Oral contraceptives or hormone replacement Sepsis (< 1 month) Serious lung disease, including pneumonia (< 1 month) Abnormal pulmonary function Acute myocardial infarction Congestive heart failure (< 1 month) History of inflammatory bowel disease Medical patient at bed rest Age 61-74 Arthroscopic surgery Major open surgery (> 45 min) Laparoscopic surgery (> 45 min) Malignancy Confined to bed (> 72 hours) Immobilizing plaster cast Central venous access Age >= 75 History of VTE Family history of VTE Factor V Leiden Prothrombin [id number] Lupus anticoagulant Anticardiolipin antibodies Elevated serum homocysteine Heparin-induced thrombocytopenia Other congenital or acquired thrombophilia Stroke (< 1 month) Elective arthroplasty Hip, pelvis, or leg fracture Acute spinal cord injury (< 1 month) Prophylaxis Regimen: Total Risk Factor Score Risk Level Prophylaxis Regimen 0-1 Low Early ambulation 2 Moderate Order ONE of the following: *Sequential Compression Device (SCD) *Heparin 5000 units SQ BID 3-4 Higher Order ONE of the following medications: *Heparin 5000 units SQ TID *Enoxaparin/Lovenox 40 mg SQ daily (WT < 150 kg, CrCl > 30 mL/min) *Enoxaparin/Lovenox 30 mg SQ daily (WT < 150 kg, CrCl > 10-29 mL/min) *Enoxaparin/Lovenox 30 mg SQ BID (WT < 150 kg, CrCl > 30 mL/min) AND/OR *Sequential Compression Device (SCD) 5 or more Highest Order ONE of the following medications: *Heparin 5000 units SQ TID (Preferred with Epidurals) *Enoxaparin/Lovenox 40 mg SQ daily (WT < 150 kg, CrCl > 30 mL/min) *Enoxaparin/Lovenox 30 mg SQ daily (WT < 150 kg, CrCl > 10-29 mL/min) *Enoxaparin/Lovenox 30 mg SQ BID (WT < 150 kg, CrCl > 30 mL/min) AND *Sequential Compression Device (SCD) Assessment and Plan - Assessment (1) Abdominal pain Code(s): R10.9 - Unspecified abdominal pain Status: Acute (2) GI bleed Code(s): K92.2 - Gastrointestinal hemorrhage, unspecified Status: Acute (3) Alcohol abuse Code(s): F10.10 - Alcohol abuse, uncomplicated Status: Chronic - Plan 57-year-old male with past medical history significant for pancreatitis, anemia, tobacco, alcohol abuse, and GI bleed who presents to the emergency department with complaints of abdominal pain, nausea, vomiting and bloody stools. Acute gastrointestinal bleed -Hx H&H 10.9/32.6, coag panel stable, mild tachycardia noted on admission -CT abdomen pelvis reviewed, mild to moderate diverticulosis with no definite inflammatory changes, nonobstructive bowel gas pattern. Gallbladder otherwise unremarkable, moderate to severe hepatic steatosis. -Patient underwent EGD 01/10 which showed multiple erosions in the gastric atrium and large nonbleeding ulcer at the first portion of the duodenum. -Patient will be admitted to observation unit. Consult gastroenterology for further evaluation, appreciate assistance. -Continue IV Protonix -Continue monitoring H&H, transfuse as necessary -Clear liquid diet, n.p.o. after midnight for possible procedure by GI -Pain control with oral Roxicodone and IV morphine Alcohol abuse Tobacco abuse -Patient extensively counseled on importance of cessation -CIWA - Folic acid, B1, & multivitamin - Nicotine patch DVT prophylaxisSCDs Discussed Condition With: Patient and (2) GI bleed Qualifiers: GI bleed type/associated pathology: unspecified gastrointestinal hemorrhage type Qualified Code(s): K92.2 - Gastrointestinal hemorrhage, unspecified
[2018-03-03] MEDS: Folic Acid 1 MG Tablet PO SCH (17:56)
[2018-03-03] MEDS: Sod Chloride 0.9% Inj 1,000 ML IV.CONT SCH (17:56)
[2018-03-03] MEDS: Morphine Inj 4 MG/ML Vial IV.PUSH PRN (17:56)
[2018-03-03 18:14] LABS: Hematocrit 27.3 % (39.0-51.0); Hemoglobin 9.2 gm/dL (13.0-17.0)
[2018-03-03] MEDS: Multivitamin/Minerals Therapeutic Tablet PO SCH (18:32)
[2018-03-03] MEDS: Senna/Docusate Sodium 8.6/50 MG Tablet PO SCH (20:03)
[2018-03-03] MEDS: Pantoprazole Inj 40 MG Vial IV.PUSH SCH (21:14)
[2018-03-03 21:43] LABS: Phosphorus 3.3 mg/dL (2.5-4.9)
[2018-03-03 21:48] LABS: Magnesium 1.7 mg/dL (1.5-2.5)
[2018-03-03] MEDS: Morphine Sulfate Inj 2 MG/ML Vial IV.PUSH PRN (22:34)
[2018-03-03 22:47] LABS: Hematocrit 23.3 % (39.0-51.0); Hemoglobin 7.7 gm/dL (13.0-17.0)
[2018-03-03] MEDS ORDERED: Sodium Chlor 0.9% Inj 250 ML IV.SIG SCH (23:00)
[2018-03-04] MEDS: Sod Chloride 0.9% Inj 1,000 ML IV.CONT SCH ×2 (05:09→14:53)
[2018-03-04] MEDS: Morphine Sulfate Inj 2 MG/ML Vial IV.PUSH PRN ×2 (06:08→12:35)
[2018-03-04 06:29] LABS: Prothrombin Time 10.2 sec (9.8-11.6)
[2018-03-04 06:47] LABS: Baso # (Auto) 0.1 th/mm3 (0.0-0.2); Baso % (Auto) 1.2 % (0.0-2.0); Eos # (Auto) 0.2 th/mm3 (0.0-0.4); Eos % (Auto) 2.1 % (0.0-4.0); Hematocrit 26.9 % (39.0-51.0); Hemoglobin 8.8 gm/dL (13.0-17.0); Lymph # (Auto) 2.1 th/mm3 (1.0-4.8); Lymph % (Auto) 25.6 % (9.0-44.0); Mean Corpuscular HGB Conc 32.8 % (32.0-36.0); Mean Corpuscular Hemoglobin 29.6 pg (27.0-34.0); Mean Corpuscular Volume 90.2 fL (80.0-100.0); Mean Platelet Volume 8.1 fL (7.0-11.0); Mono # (Auto) 1.2 th/mm3 (0.0-0.9); Mono % (Auto) 13.9 % (0.0-8.0); Neut # (Auto) 4.8 th/mm3 (1.8-7.7); Neut % (Auto) 57.2 % (16.0-70.0); Platelet Count 269 th/mm3 (150-450); Red Blood Count 2.98 mil/mm3 (4.50-5.90); Red Cell Distribution Width 16.3 % (11.6-17.2); White Blood Count 8.3 th/mm3 (4.0-11.0)
[2018-03-04 07:07] LABS: Alanine Aminotransferase 33 U/L (12-78); Albumin 2.6 g/dL (3.4-5.0); Alkaline Phosphatase 45 U/L (45-117); Anion Gap 9 meq/L (5-15); Aspartate Aminotransferase 32 U/L (15-37); Blood Urea Nitrogen 12 mg/dL (7-18); Calcium 7.5 mg/dL (8.5-10.1); Carbon Dioxide 24.1 meq/L (21.0-32.0); Chloride 109 meq/L (98-107); Glomerular Filtration Rate Greater Than 89 mL/min (>89); Glucose,Random 97 mg/dL (74-106); Lipase 105 U/L (73-393); Sodium 142 meq/L (136-145); Total Protein 5.2 g/dL (6.4-8.2)
[2018-03-04 07:21] LABS: Potassium 3.8 meq/L (3.5-5.1)
[2018-03-04] MEDS: Multivitamin/Minerals Therapeutic Tablet PO SCH (08:02)
[2018-03-04] MEDS: Senna/Docusate Sodium 8.6/50 MG Tablet PO SCH ×2 (08:02→20:24)
[2018-03-04] MEDS: Folic Acid 1 MG Tablet PO SCH (08:02)
[2018-03-04] MEDS: Pantoprazole Inj 40 MG Vial IV.PUSH SCH ×2 (08:10→20:24)
--- NOTE | 2018-03-04 09:10 | P.CONGI ---
History of Present Illness Consult date: 03/04/18 Consult reason: Suspected upper GI bleed Chief complaint: ABDOMINAL PAIN GI BLEED History of Present Illness: This patient is a 57-year-old male who has a past medical history significant for pancreatitis, anemia, tobacco and alcohol abuse. Patient also has history of gastric ulcers. Patient states he presented to the emergency room at [facility] on 03/03/2018 with complaints of upper and lower abdominal pain that began 1 week ago. Patient describes the pain as throbbing and sharp. He denies radiation of the pain and denies any alleviating or aggravating factors. Patient rates pain at this time is 8 out of 10. Patient reports that he was taking Rolaids at home without relief. Reports associated nausea and vomiting for the past 3-4 days. Denies any blood in emesis, describes emesis as dark yellow. Patient reports prior to the onset of pain, he experienced loose brown stool for 1 week. For the last 2-3 days patient states he has noted dark stools with a small amount of bright red bleeding. Patient states stools are very dark almost black. Patient also states that he has been experiencing some dizziness and lightheadedness. Denies chest pain palpitations or shortness of breath. Our service has been consulted to evaluate patient's report of GI bleeding. Last EGD was done on 01/10/2018 and revealed the following findings: 1. The esophagus appeared normal 2. Multiple erosions were found in the gastric antrum 3. Large non-bleeding ulcer was found in the 1st part of the duodenum; Submucosal injection of 5ml of epinephrine 1:10,000 was performed around the bleeding site, followed by Bipolar coagulation. 4. Retroflexion was performed and was normal Patient denies any known family history of gastrointestinal disorders/diseases. Patient denies ever having had a colonoscopy. Denies any use of NSAIDs or aspirin. Denies any prescription medication use. Patient states stools are normally brown with 1-2 BMs daily. Discussed need for EGD with possible control of bleeding, patient verbalizes understanding and agreement. <Debora Rodriguez - Last Filed: 03/04/18 08:55> Review of Systems All other systems reviewed negative except as stated in HPI <Debora Rodriguez - Last Filed: 03/04/18 08:55> PMFSH - History History Provided By: Patient - Medical History Medical History: Medical History (Last Reviewed 03/03/18 @ 17:34 by Diamond Noble) GI bleed Alcohol abuse Anemia Pancreatitis Tobacco abuse - Family History Family History: Family History (Last Reviewed 03/03/18 @ 17:10 by Diamond Noble) Other Family history normal - Tobacco History Second Hand Smoke Exposure: Yes Tobacco Use In Past 30 Days: Yes Smoking Status: Heavy tobacco smoker Tobacco Type: Cigarettes (1PPDx 20yrs) - Alcohol History How Often Do You Have a Drink Containing Alcohol: 4 or more times a week - Substance Use History Substance History: No History of Abuse - Travel History History of Recent Travel: No Recent Travel in the [place] Within the Last 8 Weeks: No Recent Travel Out of the Country Within the Last 8 Weeks: No - Immunization History Tetanus Immunization: Unsure <Debora Rodriguez - Last Filed: 03/04/18 08:55> - Medical History Medical History: Medical History (Last Reviewed 03/03/18 @ 17:34 by Diamond Noble) GI bleed Alcohol abuse Anemia Pancreatitis Tobacco abuse - Family History Family History: Family History (Last Reviewed 03/03/18 @ 17:10 by Diamond Noble) Other Family history normal <Barrington Hay - Last Filed: 03/04/18 11:46> Medications and Allergies Active Medications: Active Medications Acetaminophen (Tylenol) 650 mg PO Q4H PRN PRN Reason: Temp > 100.4 Acetaminophen (Tylenol) 650 mg PO Q6H PRN PRN Reason: PAIN SCALE 1 TO 2 Al Hydroxide/Mg Hydroxide (Milk Of Magnyony Liq) 30 ml PO Q12H PRN PRN Reason: Mild Constipation Bisacodyl (Dulcolax Supp) 10 mg RECTAL DAILY PRN PRN Reason: SEVERE CONSITIPATION Clonidine HCl (Catapres) 0.1 mg PO Q6H PRN PRN Reason: HYPERTENSION Diphenhydramine HCl (Benadryl) 25 mg PO Q4H PRN PRN Reason: SEE LABEL COMMENTS Flumazenil (Romazecon Inj) 0.2 mg IV.PUSH Q1M PRN PRN Reason: OVERSEDATION Folic Acid (Folic Acid) 1 mg PO DAILY RYAN Stop: 03/08/18 17:14 Last Admin: 03/04/18 08:02 Dose: Not Given Haloperidol Lactate (Haldol Inj) 1 mg IV.PUSH Q15M PRN PRN Reason: for severe agitation Sodium Chloride (Ns Inj) 1,000 mls @ 100 mls/hr IV.CONT .Q10H RYAN Last Admin: 03/04/18 05:09 Dose: 100 mls/hr Sodium Chloride (Ns Inj) 250 mls @ 15 mls/hr IV.SIG ONCE RYAN Stop: 03/04/18 15:39 Last Admin: 03/04/18 00:50 Dose: 15 mls/hr Lactulose (Lactulose Liq) 30 ml PO DAILY PRN PRN Reason: SEVERE CONSITIPATION Lorazepam (Ativan) 1 mg PO Q4H PRN PRN Reason: for CIWA 8-10 Lorazepam (Ativan) 2 mg PO Q2H PRN PRN Reason: for CIWA 11-14 Lorazepam (Ativan Inj) 2 mg IV.PUSH Q1H PRN PRN Reason: for CIWA 15-20 Lorazepam (Ativan Inj) 2 mg IV.PUSH Q15M PRN PRN Reason: for CIWA > 20 Lorazepam (Ativan Inj) 1 mg IV.PUSH Q4H PRN PRN Reason: for CIWA 8-10 Lorazepam (Ativan Inj) 2 mg IV.PUSH Q2H PRN PRN Reason: for CIWA 11-14 Morphine Sulfate (Morphine Inj) 2 mg IV.PUSH Q3H PRN PRN Reason: PAIN 3-5; IF UABLE TO TAKE PO Last Admin: 03/04/18 06:08 Dose: 2 mg Morphine Sulfate (Morphine Inj) 4 mg IV.PUSH Q3H PRN PRN Reason: PAIN 6-10;IF UNABLE TO TAKE PO Morphine Sulfate (Morphine Inj) 4 mg IV.PUSH Q3H PRN PRN Reason: BREAKTHROUGH PAIN Morphine Sulfate (Morphine Inj) 4 mg IV.PUSH Q1H PRN PRN Reason: Pain Scale 7-10 (Intractable) Last Admin: 03/03/18 17:56 Dose: 4 mg Multivitamins/Minerals (Theragran-M) 1 tab PO DAILY [facility] [place] Stop: 03/08/18 17:14 Last Admin: 03/04/18 08:02 Dose: Not Given Naloxone HCl (Narcan Inj) 0.4 mg IV.PUSH UNSCH PRN PRN Reason: SEE LABEL COMMENTS Naloxone HCl (Narcan Inj) 0.4 mg IV.PUSH UNSCH PRN PRN Reason: SEE LABEL COMMENTS Nicotine (Habitrol 21 Mg Patch.24 Hr) 1 patch T-DERMAL DAILY [facility] [place] Ondansetron HCl (Zofran Inj) 4 mg IV.PUSH Q6H PRN PRN Reason: NAUSEA OR VOMITING Last Admin: 03/04/18 06:08 Dose: 4 mg Oxycodone HCl (Roxicodone) 5 mg PO Q4H PRN PRN Reason: PAIN SCALE 3 TO 5 Oxycodone HCl (Roxicodone) 10 mg PO Q4H PRN PRN Reason: PAIN SCALE 6 TO 10 Pantoprazole Sodium (Protonix Inj) 40 mg IV.PUSH BID [facility] [place] Last Admin: 03/04/18 08:10 Dose: 40 mg Patch Removal (Remove Old Patch) 1 each T-DERMAL DAILY [facility] Senna/Docusate Sodium (Gina-Colace) 1 tab PO BID [facility] Last Admin: 03/04/18 08:02 Dose: Not Given Sennosides (Senokot) 17.2 mg PO Q12H PRN PRN Reason: Moderate Constipation Sodium Chloride (Ns Flush) 2 ml IV.FLUSH PRN PRN PRN Reason: FLUSH AFTER USING IV ACCESS Last Admin: 03/03/18 14:05 Dose: 2 ml Sodium Chloride (Ns Flush) 2 ml IV.FLUSH BID [facility] [place] Last Admin: 03/04/18 08:02 Dose: 2 ml Sodium Chloride (Ns Flush) 2 ml IV.FLUSH PRN PRN PRN Reason: FLUSH AFTER USING IV ACCESS Thiamine HCl (Vitamin B1) 100 mg PO DAILY [facility] [place] Last Admin: 03/04/18 08:03 Dose: Not Given <Debora Rodriguez - Last Filed: 03/04/18 08:55> Active Medications: Active Medications Acetaminophen (Tylenol) 650 mg PO Q4H PRN PRN Reason: Temp > 100.4 Acetaminophen (Tylenol) 650 mg PO Q6H PRN PRN Reason: PAIN SCALE 1 TO 2 Al Hydroxide/Mg Hydroxide (Milk Of Magnesia Liq) 30 ml PO Q12H PRN PRN Reason: Mild Constipation Bisacodyl (Dulcolax Supp) 10 mg RECTAL DAILY PRN PRN Reason: SEVERE CONSITIPATION Clonidine HCl (Catapres) 0.1 mg PO Q6H PRN PRN Reason: HYPERTENSION Diphenhydramine HCl (Benadryl) 25 mg PO Q4H PRN PRN Reason: SEE LABEL COMMENTS Flumazenil (Romazecon Inj) 0.2 mg IV.PUSH Q1M PRN PRN Reason: OVERSEDATION Folic Acid (Folic Acid) 1 mg PO DAILY [facility] [place] Stop: 03/08/18 17:14 Last Admin: 03/04/18 08:02 Dose: Not Given Haloperidol Lactate (Haldol Inj) 1 mg IV.PUSH Q15M PRN PRN Reason: for severe agitation Sodium Chloride (Ns Inj) 1,000 mls @ 100 mls/hr IV.CONT .Q10H RYAN Last Admin: 03/04/18 05:09 Dose: 100 mls/hr Sodium Chloride (Ns Inj) 250 mls @ 15 mls/hr IV.SIG ONCE [facility] [place] Stop: 03/04/18 15:39 Last Admin: 03/04/18 00:50 Dose: 15 mls/hr Lactulose (Lactulose Liq) 30 ml PO DAILY PRN PRN Reason: SEVERE CONSITIPATION Lorazepam (Ativan) 1 mg PO Q4H PRN PRN Reason: for CIWA 8-10 Lorazepam (Ativan) 2 mg PO Q2H PRN PRN Reason: for CIWA 11-14 Lorazepam (Ativan Inj) 2 mg IV.PUSH Q1H PRN PRN Reason: for CIWA 15-20 Lorazepam (Ativan Inj) 2 mg IV.PUSH Q15M PRN PRN Reason: for CIWA > 20 Lorazepam (Ativan Inj) 1 mg IV.PUSH Q4H PRN PRN Reason: for CIWA 8-10 Lorazepam (Ativan Inj) 2 mg IV.PUSH Q2H PRN PRN Reason: for CIWA 11-14 Morphine Sulfate (Morphine Inj) 2 mg IV.PUSH Q3H PRN PRN Reason: PAIN 3-5; IF UABLE TO TAKE PO Last Admin: 03/04/18 06:08 Dose: 2 mg Morphine Sulfate (Morphine Inj) 4 mg IV.PUSH Q3H PRN PRN Reason: PAIN 6-10;IF UNABLE TO TAKE PO Last Admin: 03/04/18 10:10 Dose: 4 mg Morphine Sulfate (Morphine Inj) 4 mg IV.PUSH Q3H PRN PRN Reason: BREAKTHROUGH PAIN Morphine Sulfate (Morphine Inj) 4 mg IV.PUSH Q1H PRN PRN Reason: Pain Scale 7-10 (Intractable) Last Admin: 03/03/18 17:56 Dose: 4 mg Multivitamins/Minerals (Theragran-M) 1 tab PO DAILY [facility] [place] Stop: 03/08/18 17:14 Last Admin: 03/04/18 08:02 Dose: Not Given Naloxone HCl (Narcan Inj) 0.4 mg IV.PUSH UNSCH PRN PRN Reason: SEE LABEL COMMENTS Naloxone HCl (Narcan Inj) 0.4 mg IV.PUSH UNSCH PRN PRN Reason: SEE LABEL COMMENTS Nicotine (Habitrol 21 Mg Patch.24 Hr) 1 patch T-DERMAL DAILY [facility] [place] Last Admin: 03/04/18 11:32 Dose: Not Given Ondansetron HCl (Zofran Inj) 4 mg IV.PUSH Q6H PRN PRN Reason: NAUSEA OR VOMITING Last Admin: 03/04/18 06:08 Dose: 4 mg Oxycodone HCl (Roxicodone) 5 mg PO Q4H PRN PRN Reason: PAIN SCALE 3 TO 5 Oxycodone HCl (Roxicodone) 10 mg PO Q4H PRN PRN Reason: PAIN SCALE 6 TO 10 Pantoprazole Sodium (Protonix Inj) 40 mg IV.PUSH BID [facility] [place] Last Admin: 03/04/18 08:10 Dose: 40 mg Patch Removal (Remove Old Patch) 1 each T-DERMAL DAILY [facility] [place] Senna/Docusate Sodium (Gina-Colace) 1 tab PO BID [facility] [place] Last Admin: 03/04/18 08:02 Dose: Not Given Sennosides (Senokot) 17.2 mg PO Q12H PRN PRN Reason: Moderate Constipation Sodium Chloride (Ns Flush) 2 ml IV.FLUSH PRN PRN PRN Reason: FLUSH AFTER USING IV ACCESS Last Admin: 03/03/18 14:05 Dose: 2 ml Sodium Chloride (Ns Flush) 2 ml IV.FLUSH BID [facility] [place] Last Admin: 03/04/18 08:02 Dose: 2 ml Sodium Chloride (Ns Flush) 2 ml IV.FLUSH PRN PRN PRN Reason: FLUSH AFTER USING IV ACCESS Thiamine HCl (Vitamin B1) 100 mg PO DAILY [facility] [place] Last Admin: 03/04/18 08:03 Dose: Not Given <Barrington Hay - Last Filed: 03/04/18 11:46> Allergies Allergy/AdvReac Type Severity Reaction Status Date / Time No Known Allergies Allergy Unverified 01/09/18 11:12 Home Medications Medication Instructions Recorded Confirmed Type No Known Home Medications 01/09/18 03/03/18 History Exam Vital signs: Vital Signs 03/03/18 13:00 03/03/18 16:50 03/03/18 17:17 Temperature 97.3 F L Pulse Rate 107 H 88 Respiratory Rate 16 12 Blood Pressure 112/73 112/80 Pulse Oximetry 97 99 97 03/03/18 18:33 03/03/18 20:14 03/03/18 20:19 Temperature Pulse Rate 94 H 76 Respiratory Rate Blood Pressure Pulse Oximetry 99 95 97 03/03/18 21:17 03/03/18 22:28 03/04/18 00:37 Temperature 97.8 F Pulse Rate 95 H 100 H 102 H Respiratory Rate 18 18 20 Blood Pressure 131/88 104/66 107/62 Pulse Oximetry 100 98 99 03/04/18 00:48 03/04/18 01:15 03/04/18 02:15 Temperature 98.8 F Pulse Rate 92 H 79 75 Respiratory Rate 20 18 18 Blood Pressure 102/62 111/67 111/71 Pulse Oximetry 98 96 98 03/04/18 02:45 03/04/18 05:00 03/04/18 06:00 Temperature Pulse Rate 75 93 H 90 Respiratory Rate 18 20 18 Blood Pressure 120/77 133/76 126/79 Pulse Oximetry 99 100 100 Intake & Output 03/03/18 03/04/18 03/04/18 18:59 06:59 18:59 Intake Total 1000 / 1000 0 / 2050 Output Total 4850 / 4850 Balance 1000 / 1000 -2800 / -2800 Weight 63.503 kg Intake: IV 1000 / 1000 1000 / 1000 NS Inj 1,000 ML @ 100 mls/hr IV 1000 / 1000 .CONT .Q10H RYAN Rx#:[id number] NS Inj 1,000 ML @ Wide Open IV. 1000 / 1000 SIG BOLUS ONE Rx#:[id number] Oral 800 / 800 Other 250 / 250 Rbc As-3 Leukoreduced Unit 250 / 250 [id number] Intake (Blood Product) Amt 0 / 0 Rbc As-3 Leukoreduced Unit 0 / 0 [id number] Output: Urine 2800 / 2800 Stool 850 / 850 Emesis 1200 / 1200 Other: # Voids 3 # Bowel Movements 3 # Emeses 1 - Constitutional no acute distress - Routine HEENT Exam Head: Present: normocephalic - Routine Neck Exam Present: supple - Routine Respiratory Exam Present: CTA bilaterally. Absent: accessory muscle use - Routine Cardiovascular Exam Present: RRR - Routine Abdominal Exam Present: soft, normoactive bowel sounds. Absent: tenderness, distended, guarding, firm - Routine Extremities Exam Present: full ROM, pulses intact. Absent: edema - Routine Skin Exam Present: dry, warm. Absent: pallor - Routine Neurological Exam Present: alert, oriented X3 <Rodriguez,Debora - Last Filed: 03/04/18 08:55> Vital signs: Vital Signs 03/03/18 13:00 03/03/18 16:50 03/03/18 17:17 Temperature 97.3 F L Pulse Rate 107 H 88 Respiratory Rate 16 12 Blood Pressure 112/73 112/80 Pulse Oximetry 97 99 97 03/03/18 18:33 03/03/18 20:14 03/03/18 20:19 Temperature Pulse Rate 94 H 76 Respiratory Rate Blood Pressure Pulse Oximetry 99 95 97 03/03/18 21:17 03/03/18 22:28 03/04/18 00:37 Temperature 97.8 F Pulse Rate 95 H 100 H 102 H Respiratory Rate 18 18 20 Blood Pressure 131/88 104/66 107/62 Pulse Oximetry 100 98 99 03/04/18 00:48 03/04/18 01:15 03/04/18 02:15 Temperature 98.8 F Pulse Rate 92 H 79 75 Respiratory Rate 20 18 18 Blood Pressure 102/62 111/67 111/71 Pulse Oximetry 98 96 98 03/04/18 02:45 03/04/18 05:00 03/04/18 06:00 Temperature Pulse Rate 75 93 H 90 Respiratory Rate 18 20 18 Blood Pressure 120/77 133/76 126/79 Pulse Oximetry 99 100 100 03/04/18 08:00 03/04/18 09:00 03/04/18 11:32 Temperature 98.5 F Pulse Rate 73 72 Respiratory Rate 21 18 Blood Pressure 139/68 Pulse Oximetry 100 Intake & Output 03/03/18 03/04/18 03/04/18 18:59 06:59 18:59 Intake Total 1000 / 1000 2050 / 2050 Output Total 4850 / 4850 Balance 1000 / 1000 -2800 / -2800 Weight 63.503 kg Intake: IV 1000 / 1000 1000 / 1000 NS Inj 1,000 ML @ 100 mls/hr IV 1000 / 1000 .CONT .Q10H RYAN Rx#:[id number] NS Inj 1,000 ML @ Wide Open IV. 1000 / 1000 SIG BOLUS ONE Rx#:[id number] Oral 800 / 800 Other 250 / 250 Rbc As-3 Leukoreduced Unit 250 / 250 [id number] Intake (Blood Product) Amt 0 / 0 Rbc As-3 Leukoreduced Unit 0 / 0 [id number] Output: Urine 2800 / 2800 Stool 850 / 850 Emesis 1200 / 1200 Other: # Voids 3 # Bowel Movements 3 # Emeses 1 <DangeloBarrington moore - Last Filed: 03/04/18 11:46> Results - Labs CBC & Chem 7: 03/04/18 05:49 03/04/18 05:49 Labs: Laboratory Results - last 24 hr 03/03/18 03/03/18 03/03/18 14:00 14:00 14:00 WBC 7.8 RBC 3.54 L Hgb 10.9 L Hct 32.6 L MCV 92.0 MCH 30.8 MCHC 33.5 RDW 16.3 Plt Count 313 MPV 7.2 Neut % (Auto) 59.4 Lymph % (Auto) 22.5 [place] % (Auto) 15.1 H Eos % (Auto) 1.9 Baso % (Auto) 1.1 Neut # (Auto) 4.6 Lymph # (Auto) 1.8 [place] # (Auto) 1.2 H Eos # (Auto) 0.2 Baso # (Auto) 0.1 WBC Differential . Differential Comment Auto diff final PT 9.9 INR 1.0 APTT 23.1 L Sodium 141 Potassium 3.6 Chloride 105 Carbon Dioxide 26.7 Anion Gap 9 BUN 7 Creatinine 0.64 Estimated GFR Greater than 89 Random Glucose 83 Calcium 9.4 Phosphorus Magnesium 1.8 Total Bilirubin 0.2 AST 28 ALT 41 Alkaline Phosphatase 56 Troponin I B-Natriuretic Peptide Total Protein 6.1 L Albumin 3.1 L Lipase 207 Serum Alcohol 103 H Blood Type Blood Type Recheck Antibody Screen MTS Gel Crossmatch 03/03/18 03/03/18 03/03/18 14:00 14:00 14:00 WBC RBC Hgb Hct MCV MCH MCHC RDW Plt Count MPV Neut % (Auto) Lymph % (Auto) [place] % (Auto) Eos % (Auto) Baso % (Auto) Neut # (Auto) Lymph # (Auto) [place] # (Auto) Eos # (Auto) Baso # (Auto) WBC Differential Differential Comment PT INR APTT Sodium Potassium Chloride Carbon Dioxide Anion Gap BUN Creatinine Estimated GFR Random Glucose Calcium Phosphorus Magnesium Total Bilirubin AST ALT Alkaline Phosphatase Troponin I Less than 0.02 L B-Natriuretic Peptide 19 Total Protein Albumin Lipase Serum Alcohol Blood Type A Positive Blood Type Recheck Not needed Antibody Screen Negative MTS Gel Crossmatch 03/03/18 03/03/18 03/03/18 17:50 20:24 22:33 WBC RBC Hgb 9.2 L 7.7 L Hct 27.3 L 23.3 L MCV MCH MCHC RDW Plt Count MPV Neut % (Auto) Lymph % (Auto) [place] % (Auto) Eos % (Auto) Baso % (Auto) Neut # (Auto) Lymph # (Auto) [place] # (Auto) Eos # (Auto) Baso # (Auto) WBC Differential Differential Comment PT INR APTT Sodium Potassium Chloride Carbon Dioxide Anion Gap BUN Creatinine Estimated GFR Random Glucose Calcium Phosphorus 3.3 Magnesium 1.7 Total Bilirubin AST ALT Alkaline Phosphatase Troponin I B-Natriuretic Peptide Total Protein Albumin Lipase Serum Alcohol Blood Type Blood Type Recheck Antibody Screen MTS Gel Crossmatch 03/03/18 03/04/18 03/04/18 22:44 05:49 05:49 WBC 8.3 RBC 2.98 L Hgb 8.8 L Hct 26.9 L MCV 90.2 MCH 29.6 MCHC 32.8 RDW 16.3 Plt Count 269 MPV 8.1 Neut % (Auto) 57.2 Lymph % (Auto) 25.6 [place] % (Auto) 13.9 H Eos % (Auto) 2.1 Baso % (Auto) 1.2 Neut # (Auto) 4.8 Lymph # (Auto) 2.1 [place] # (Auto) 1.2 H Eos # (Auto) 0.2 Baso # (Auto) 0.1 WBC Differential . Differential Comment Auto diff final PT 10.2 INR 1.0 APTT Sodium Potassium Chloride Carbon Dioxide Anion Gap BUN Creatinine Estimated GFR Random Glucose Calcium Phosphorus Magnesium Total Bilirubin AST ALT Alkaline Phosphatase Troponin I B-Natriuretic Peptide Total Protein Albumin Lipase Serum Alcohol Blood Type Blood Type Recheck Antibody Screen MTS Gel Crossmatch See Detail 03/04/18 05:49 WBC RBC Hgb Hct MCV MCH MCHC RDW Plt Count MPV Neut % (Auto) Lymph % (Auto) [place] % (Auto) Eos % (Auto) Baso % (Auto) Neut # (Auto) Lymph # (Auto) [place] # (Auto) Eos # (Auto) Baso # (Auto) WBC Differential Differential Comment PT INR APTT Sodium 142 Potassium 3.8 Chloride 109 H Carbon Dioxide 24.1 Anion Gap 9 BUN 12 Creatinine 0.65 Estimated GFR Greater than 89 Random Glucose 97 Calcium 7.5 L D Phosphorus Magnesium Total Bilirubin 0.6 AST 32 ALT 33 Alkaline Phosphatase 45 Troponin I B-Natriuretic Peptide Total Protein 5.2 L D Albumin 2.6 L Lipase 105 Serum Alcohol Blood Type Blood Type Recheck Antibody Screen MTS Gel Crossmatch - Imaging Impressions Chest X-Ray 03/03/18 13:52 CONCLUSION: Mild interstitial edema suspicious for congestive failure. Abdomen/Pelvis CT 03/03/18 13:55 CONCLUSION: 1. Mild to moderate diverticulosis with no definite inflammatory change. There is a nonobstructive bowel gas pattern. 2. The gallbladder is decompressed but otherwise unremarkable. 3. Moderate to severe hepatic steatosis again noted. <Debora Rodriguez - Last Filed: 03/04/18 08:55> - Labs CBC & Chem 7: 03/04/18 05:49 03/04/18 05:49 Labs: Laboratory Results - last 24 hr 03/03/18 03/03/18 03/03/18 14:00 14:00 14:00 WBC 7.8 RBC 3.54 L Hgb 10.9 L Hct 32.6 L MCV 92.0 MCH 30.8 MCHC 33.5 RDW 16.3 Plt Count 313 MPV 7.2 Neut % (Auto) 59.4 Lymph % (Auto) 22.5 [place] % (Auto) 15.1 H Eos % (Auto) 1.9 Baso % (Auto) 1.1 Neut # (Auto) 4.6 Lymph # (Auto) 1.8 [place] # (Auto) 1.2 H Eos # (Auto) 0.2 Baso # (Auto) 0.1 WBC Differential . Differential Comment Auto diff final PT 9.9 INR 1.0 APTT 23.1 L Sodium 141 Potassium 3.6 Chloride 105 Carbon Dioxide 26.7 Anion Gap 9 BUN 7 Creatinine 0.64 Estimated GFR Greater than 89 Random Glucose 83 Calcium 9.4 Phosphorus Magnesium 1.8 Total Bilirubin 0.2 AST 28 ALT 41 Alkaline Phosphatase 56 Troponin I B-Natriuretic Peptide Total Protein 6.1 L Albumin 3.1 L Lipase 207 Nasal Screen MRSA (PCR) Serum Alcohol 103 H Blood Type Blood Type Recheck Antibody Screen MTS Gel Crossmatch 03/03/18 03/03/18 03/03/18 14:00 14:00 14:00 WBC RBC Hgb Hct MCV MCH MCHC RDW Plt Count MPV Neut % (Auto) Lymph % (Auto) [place] % (Auto) Eos % (Auto) Baso % (Auto) Neut # (Auto) Lymph # (Auto) [place] # (Auto) Eos # (Auto) Baso # (Auto) WBC Differential Differential Comment PT INR APTT Sodium Potassium Chloride Carbon Dioxide Anion Gap BUN Creatinine Estimated GFR Random Glucose Calcium Phosphorus Magnesium Total Bilirubin AST ALT Alkaline Phosphatase Troponin I Less than 0.02 L B-Natriuretic Peptide 19 Total Protein Albumin Lipase Nasal Screen MRSA (PCR) Serum Alcohol Blood Type A Positive Blood Type Recheck Not needed Antibody Screen Negative MTS Gel Crossmatch 03/03/18 03/03/18 03/03/18 17:50 20:24 22:33 WBC RBC Hgb 9.2 L 7.7 L Hct 27.3 L 23.3 L MCV MCH MCHC RDW Plt Count MPV Neut % (Auto) Lymph % (Auto) [place] % (Auto) Eos % (Auto) Baso % (Auto) Neut # (Auto) Lymph # (Auto) [place] # (Auto) Eos # (Auto) Baso # (Auto) WBC Differential Differential Comment PT INR APTT Sodium Potassium Chloride Carbon Dioxide Anion Gap BUN Creatinine Estimated GFR Random Glucose Calcium Phosphorus 3.3 Magnesium 1.7 Total Bilirubin AST ALT Alkaline Phosphatase Troponin I B-Natriuretic Peptide Total Protein Albumin Lipase Nasal Screen MRSA (PCR) Serum Alcohol Blood Type Blood Type Recheck Antibody Screen MTS Gel Crossmatch 03/03/18 03/04/18 03/04/18 22:44 05:49 05:49 WBC 8.3 RBC 2.98 L Hgb 8.8 L Hct 26.9 L MCV 90.2 MCH 29.6 MCHC 32.8 RDW 16.3 Plt Count 269 MPV 8.1 Neut % (Auto) 57.2 Lymph % (Auto) 25.6 [place] % (Auto) 13.9 H Eos % (Auto) 2.1 Baso % (Auto) 1.2 Neut # (Auto) 4.8 Lymph # (Auto) 2.1 [place] # (Auto) 1.2 H Eos # (Auto) 0.2 Baso # (Auto) 0.1 WBC Differential . Differential Comment Auto diff final PT 10.2 INR 1.0 APTT Sodium Potassium Chloride Carbon Dioxide Anion Gap BUN Creatinine Estimated GFR Random Glucose Calcium Phosphorus Magnesium Total Bilirubin AST ALT Alkaline Phosphatase Troponin I B-Natriuretic Peptide Total Protein Albumin Lipase Nasal Screen MRSA (PCR) Serum Alcohol Blood Type Blood Type Recheck Antibody Screen MTS Gel Crossmatch See Detail 03/04/18 03/04/18 05:49 07:00 WBC RBC Hgb Hct MCV MCH MCHC RDW Plt Count MPV Neut % (Auto) Lymph % (Auto) [place] % (Auto) Eos % (Auto) Baso % (Auto) Neut # (Auto) Lymph # (Auto) [place] # (Auto) Eos # (Auto) Baso # (Auto) WBC Differential Differential Comment PT INR APTT Sodium 142 Potassium 3.8 Chloride 109 H Carbon Dioxide 24.1 Anion Gap 9 BUN 12 Creatinine 0.65 Estimated GFR Greater than 89 Random Glucose 97 Calcium 7.5 L D Phosphorus Magnesium Total Bilirubin 0.6 AST 32 ALT 33 Alkaline Phosphatase 45 Troponin I B-Natriuretic Peptide Total Protein 5.2 L D Albumin 2.6 L Lipase 105 Nasal Screen MRSA (PCR) Not detected Serum Alcohol Blood Type Blood Type Recheck Antibody Screen MTS Gel Crossmatch - Imaging Impressions Chest X-Ray 03/03/18 13:52 CONCLUSION: Mild interstitial edema suspicious for congestive failure. Abdomen/Pelvis CT 03/03/18 13:55 CONCLUSION: 1. Mild to moderate diverticulosis with no definite inflammatory change. There is a nonobstructive bowel gas pattern. 2. The gallbladder is decompressed but otherwise unremarkable. 3. Moderate to severe hepatic steatosis again noted. <Barrington Hay - Last Filed: 03/04/18 11:46> Assessment and Plan (1) GI bleed Status: Acute Code(s): K92.2 - Gastrointestinal hemorrhage, unspecified (2) Acute blood loss anemia Status: Acute Code(s): D62 - Acute posthemorrhagic anemia (3) Abdominal pain Status: Acute Code(s): R10.9 - Unspecified abdominal pain - Plan This patient is a 57-year-old male who has a past medical history significant for pancreatitis, anemia, tobacco and alcohol abuse. Patient also has history of gastric ulcers. Patient states he presented to the emergency room at [facility] on 03/03/2018 with complaints of upper and lower abdominal pain that began 1 week ago. Patient describes the pain as throbbing and sharp. He denies radiation of the pain and denies any alleviating or aggravating factors. Patient rates pain at this time is 8 out of 10. Patient reports that he was taking Rolaids at home without relief. Reports associated nausea and vomiting for the past 3-4 days. Denies any blood in emesis, describes emesis as dark yellow. Patient reports prior to the onset of pain, he experienced loose brown stool for 1 week. For the last 2-3 days patient states he has noted dark stools with a small amount of bright red bleeding. Patient states stools are very dark almost black. Patient also states that he has been experiencing some dizziness and lightheadedness. Denies chest pain palpitations or shortness of breath. Our service has been consulted to evaluate patient's report of GI bleeding. Last EGD was done on 01/10/2018 and revealed the following findings: 1. The esophagus appeared normal 2. Multiple erosions were found in the gastric antrum 3. Large non-bleeding ulcer was found in the 1st part of the duodenum; Submucosal injection of 5ml of epinephrine 1:10,000 was performed around the bleeding site, followed by Bipolar coagulation. 4. Retroflexion was performed and was normal Patient denies any known family history of gastrointestinal disorders/diseases. Patient denies ever having had a colonoscopy. Denies any use of NSAIDs or aspirin. Denies any prescription medication use. Patient states stools are normally brown with 1-2 BMs daily. Discussed need for EGD with possible control of bleeding, patient verbalizes understanding and agreement. GI bleed/abdominal pain/alcohol abuse Last EGD with findings as noted above. Plan for EGD today. Hemoglobin 8.8 hematocrit 26.9 INR 1.0. 03/03/2018 CT abdomen and pelvis revealed the following findings: 1. Mild to moderate diverticulosis with no definite inflammatory change. There is a nonobstructive bowel gas pattern. 2. The gallbladder is decompressed but otherwise unremarkable. 3. Moderate to severe hepatic steatosis again noted. Plan -N.p.o. -Obtain consent for EGD -EGD planned for today -Monitor for bleeding -Monitor H&H -Zofran as needed -Continue PPI -Avoid anticoagulants, NSAIDs or aspirin -Discussed alcohol cessation -Supportive care -Further recommendations to follow based on patient status and findings This patient has been seen by myself and Dr. Hay and this note is written on his behalf - Attending Attestation Dr. Hay <Debora Rodriguez - Last Filed: 03/04/18 08:55> (1) GI bleed Status: Acute Code(s): K92.2 - Gastrointestinal hemorrhage, unspecified (2) Acute blood loss anemia Status: Acute Code(s): D62 - Acute posthemorrhagic anemia (3) Abdominal pain Status: Acute Code(s): R10.9 - Unspecified abdominal pain - Attending Attestation Patient was seen and examined, agree with above large duodenal ulcer that was bleeding last month, apparently did not take his PPI more than couple of weeks, continue to have alcohol and smoking, seems to be actively bleeding again, we will plan on doing upper endoscopy with bleeding control today We will continue monitoring H&H and give him packed RBC as needed, we will continue PPI <Barrington Hay - Last Filed: 03/04/18 11:46> <Debora Rodriguez - Last Filed: 03/04/18 08:55> (1) GI bleed Qualifiers: GI bleed type/associated pathology: unspecified gastrointestinal hemorrhage type Qualified Code(s): K92.2 - Gastrointestinal hemorrhage, unspecified <[email or web address] - Last Filed: 03/04/18 11:46> (1) GI bleed Qualifiers: GI bleed type/associated pathology: unspecified gastrointestinal hemorrhage type Qualified Code(s): K92.2 - Gastrointestinal hemorrhage, unspecified
[2018-03-04] MEDS: Morphine Inj 4 MG/ML Vial IV.PUSH PRN ×3 (10:10→20:40)
--- NOTE | 2018-03-04 11:57 | P.PCN ---
Date of procedure: 03/04/18 Procedure: THANK YOU FOR THE REFERRAL Indication; anemia, GI bleed, history of duodenal ulcer Procedure Performed; upper endoscopy bleeding control including ablation of an ulcer, injection of epinephrine, 2 clips placement. Biopsy from distal esophagus After informing the patient about procedure and possible complications consent was signed. history and physical were updated. Patient was taken to the procedure room and placed in position. Time out was completed. Adequate sedation was performed by anesthesia provider. Upper Endoscopy, the scope was placed in the mouth advanced under video guide to the second portion of the duodenum, then the scope was withdrawal to the stomach and retro-flexion was performed, the scope was withdrawal to the esophagus then out of the mouth without any immediate complication Findings; Esophagus: Mild esophagitis, questionable Orly biopsy from the distal esophagus Stomach normal with significant amount of blood in the stomach most likely coming from the duodenal ulcer Duodenum large duodenal bulb ulcer with active bleeding, pulsating artery this was clipped by 2 clips and then injected with 6 cc of epinephrine. Also cauterized with gold probe. There was complete stop of the bleeding but this could be temporarily and the patient can bleed again Recommendations; 1- Supportive care 2- ok to transfer to recovery area then discharge per protocol 3-monitor H&H every 4-6 hours with packed RBC as needed 4-keep n.p.o. 5- EGD as needed 6-continue PPI 7-if bleed bleeding happened patient will need interventional radiology to perform embolization because we will not be able to control the bleeding endoscopically
--- NOTE | 2018-03-04 12:11 | P.PNIM ---
Subjective Interval history: Patient reports no active abdominal pain. Had large amounts of black stools overnight along with one episode of hematemesis overnight. Ready for procedure today. Physical Exam Vital signs: Vital Signs 03/03/18 13:00 03/03/18 16:50 03/03/18 17:17 Temperature 97.3 F L Pulse Rate 107 H 88 Respiratory Rate 16 12 Blood Pressure 112/73 112/80 Pulse Oximetry 97 99 97 03/03/18 18:33 03/03/18 20:14 03/03/18 20:19 Temperature Pulse Rate 94 H 76 Respiratory Rate Blood Pressure Pulse Oximetry 99 95 97 03/03/18 21:17 03/03/18 22:28 03/04/18 00:37 Temperature 97.8 F Pulse Rate 95 H 100 H 102 H Respiratory Rate 18 18 20 Blood Pressure 131/88 104/66 107/62 Pulse Oximetry 100 98 99 03/04/18 00:48 03/04/18 01:15 03/04/18 02:15 Temperature 98.8 F Pulse Rate 92 H 79 75 Respiratory Rate 20 18 18 Blood Pressure 102/62 111/67 111/71 Pulse Oximetry 98 96 98 03/04/18 02:45 03/04/18 05:00 03/04/18 06:00 Temperature Pulse Rate 75 93 H 90 Respiratory Rate 18 20 18 Blood Pressure 120/77 133/76 126/79 Pulse Oximetry 99 100 100 03/04/18 08:00 03/04/18 09:00 03/04/18 11:32 Temperature 98.5 F Pulse Rate 73 72 Respiratory Rate 21 18 Blood Pressure 139/68 Pulse Oximetry 100 Intake & Output 03/03/18 03/04/18 03/04/18 18:59 06:59 18:59 Intake Total 1000 / 1000 2049 / 2049 Output Total 4850 / 4850 Balance 1000 / 1000 -2800 / -2800 Weight 63.503 kg Intake: IV 1000 / 1000 1000 / 1000 NS Inj 1,000 ML @ 100 mls/hr IV 1000 / 1000 .CONT .Q10H RYAN Rx#:[id number] NS Inj 1,000 ML @ Wide Open IV. 1000 / 1000 SIG BOLUS ONE Rx#:[id number] Oral 800 / 800 Other 250 / 250 Rbc As-3 Leukoreduced Unit 250 / 250 [id number] Intake (Blood Product) Amt 0 / 0 Rbc As-3 Leukoreduced Unit 0 / 0 [id number] Output: Urine 2800 / 2800 Stool 850 / 850 Emesis 1200 / 1200 Other: # Voids 3 # Bowel Movements 3 # Emeses 1 Narrative: GENERAL: This is a well-nourished, well-developed patient, in no apparent distress. CARDIOVASCULAR: Regular rate and rhythm RESPIRATORY: Clear to auscultation. Breath sounds equal bilaterally. No wheezes , rales, or rhonchi. GASTROINTESTINAL: Abdomen soft, non-tender, nondistended. Normal active bowel sounds MUSCULOSKELETAL: Extremities without clubbing, cyanosis, or edema. NEURO: Alert & Oriented x4 to person, place, time, situation. Moves all ext x4 Results - Labs CBC & Chem 7: 03/04/18 05:49 03/04/18 05:49 Laboratory Results - last 24 hr 03/03/18 03/03/18 03/03/18 14:00 14:00 14:00 WBC 7.8 RBC 3.54 L Hgb 10.9 L Hct 32.6 L MCV 92.0 MCH 30.8 MCHC 33.5 RDW 16.3 Plt Count 313 MPV 7.2 Neut % (Auto) 59.4 Lymph % (Auto) 22.5 Cavalier % (Auto) 15.1 H Eos % (Auto) 1.9 Baso % (Auto) 1.1 Neut # (Auto) 4.6 Lymph # (Auto) 1.8 Cavalier # (Auto) 1.2 H Eos # (Auto) 0.2 Baso # (Auto) 0.1 WBC Differential . Differential Comment Auto diff final PT 9.9 INR 1.0 APTT 23.1 L Sodium 141 Potassium 3.6 Chloride 105 Carbon Dioxide 26.7 Anion Gap 9 BUN 7 Creatinine 0.64 Estimated GFR Greater than 89 Random Glucose 83 Calcium 9.4 Phosphorus Magnesium 1.8 Total Bilirubin 0.2 AST 28 ALT 41 Alkaline Phosphatase 56 Troponin I B-Natriuretic Peptide Total Protein 6.1 L Albumin 3.1 L Lipase 207 Nasal Screen MRSA (PCR) Serum Alcohol 103 H Blood Type Blood Type Recheck Antibody Screen MTS Gel Crossmatch 03/03/18 03/03/18 03/03/18 14:00 14:00 14:00 WBC RBC Hgb Hct MCV MCH MCHC RDW Plt Count MPV Neut % (Auto) Lymph % (Auto) Cavalier % (Auto) Eos % (Auto) Baso % (Auto) Neut # (Auto) Lymph # (Auto) Cavalier # (Auto) Eos # (Auto) Baso # (Auto) WBC Differential Differential Comment PT INR APTT Sodium Potassium Chloride Carbon Dioxide Anion Gap BUN Creatinine Estimated GFR Random Glucose Calcium Phosphorus Magnesium Total Bilirubin AST ALT Alkaline Phosphatase Troponin I Less than 0.02 L B-Natriuretic Peptide 19 Total Protein Albumin Lipase Nasal Screen MRSA (PCR) Serum Alcohol Blood Type A Positive Blood Type Recheck Not needed Antibody Screen Negative MTS Gel Crossmatch 03/03/18 03/03/18 03/03/18 17:50 20:24 22:33 WBC RBC Hgb 9.2 L 7.7 L Hct 27.3 L 23.3 L MCV MCH MCHC RDW Plt Count MPV Neut % (Auto) Lymph % (Auto) Cavalier % (Auto) Eos % (Auto) Baso % (Auto) Neut # (Auto) Lymph # (Auto) Cavalier # (Auto) Eos # (Auto) Baso # (Auto) WBC Differential Differential Comment PT INR APTT Sodium Potassium Chloride Carbon Dioxide Anion Gap BUN Creatinine Estimated GFR Random Glucose Calcium Phosphorus 3.3 Magnesium 1.7 Total Bilirubin AST ALT Alkaline Phosphatase Troponin I B-Natriuretic Peptide Total Protein Albumin Lipase Nasal Screen MRSA (PCR) Serum Alcohol Blood Type Blood Type Recheck Antibody Screen MTS Gel Crossmatch 03/03/18 03/04/18 03/04/18 22:44 05:49 05:49 WBC 8.3 RBC 2.98 L Hgb 8.8 L Hct 26.9 L MCV 90.2 MCH 29.6 MCHC 32.8 RDW 16.3 Plt Count 269 MPV 8.1 Neut % (Auto) 57.2 Lymph % (Auto) 25.6 Cavalier % (Auto) 13.9 H Eos % (Auto) 2.1 Baso % (Auto) 1.2 Neut # (Auto) 4.8 Lymph # (Auto) 2.1 Cavalier # (Auto) 1.2 H Eos # (Auto) 0.2 Baso # (Auto) 0.1 WBC Differential . Differential Comment Auto diff final PT 10.2 INR 1.0 APTT Sodium Potassium Chloride Carbon Dioxide Anion Gap BUN Creatinine Estimated GFR Random Glucose Calcium Phosphorus Magnesium Total Bilirubin AST ALT Alkaline Phosphatase Troponin I B-Natriuretic Peptide Total Protein Albumin Lipase Nasal Screen MRSA (PCR) Serum Alcohol Blood Type Blood Type Recheck Antibody Screen MTS Gel Crossmatch See Detail 03/04/18 03/04/18 05:49 07:00 WBC RBC Hgb Hct MCV MCH MCHC RDW Plt Count MPV Neut % (Auto) Lymph % (Auto) Cavalier % (Auto) Eos % (Auto) Baso % (Auto) Neut # (Auto) Lymph # (Auto) Cavalier # (Auto) Eos # (Auto) Baso # (Auto) WBC Differential Differential Comment PT INR APTT Sodium 142 Potassium 3.8 Chloride 109 H Carbon Dioxide 24.1 Anion Gap 9 BUN 12 Creatinine 0.65 Estimated GFR Greater than 89 Random Glucose 97 Calcium 7.5 L D Phosphorus Magnesium Total Bilirubin 0.6 AST 32 ALT 33 Alkaline Phosphatase 45 Troponin I B-Natriuretic Peptide Total Protein 5.2 L D Albumin 2.6 L Lipase 105 Nasal Screen MRSA (PCR) Not detected Serum Alcohol Blood Type Blood Type Recheck Antibody Screen MTS Gel Crossmatch - Imaging Impressions Chest X-Ray 03/03/18 13:52 CONCLUSION: Mild interstitial edema suspicious for congestive failure. Abdomen/Pelvis CT 03/03/18 13:55 CONCLUSION: 1. Mild to moderate diverticulosis with no definite inflammatory change. There is a nonobstructive bowel gas pattern. 2. The gallbladder is decompressed but otherwise unremarkable. 3. Moderate to severe hepatic steatosis again noted. - Procedures ndoscopy Assessment and Plan - Assessment (1) Abdominal pain Code(s): R10.9 - Unspecified abdominal pain Status: Acute (2) GI bleed Code(s): K92.2 - Gastrointestinal hemorrhage, unspecified Status: Acute (3) Alcohol abuse Code(s): F10.10 - Alcohol abuse, uncomplicated Status: Chronic - Plan 57-year-old male with past medical history significant for pancreatitis, anemia, tobacco, alcohol abuse, and GI bleed who presents to the emergency department with complaints of abdominal pain, nausea, vomiting and bloody stools. Acute gastrointestinal bleed with active bleeding overnight requiring 1 unit packed red blood cell transfusion -Hemoglobin went down to 7.7 requiring transfusion, this morning's hemoglobin 8.8 Patient scheduled for upper endoscopy today with GI with findings of mild esophagitis, questionable Orly biopsy from distal esophagus, duodenal large bulb ulcer with active bleeding in which pulsating artery was clipped and epinephrine was injected with cauterization following. GI recommends PPI, keep n.p.o. Next 24 hours and monitor hemoglobin hematocrit. If continues to bleed patient will need embolization from radiology. -Continue IV Protonix -Continue monitoring H&H, transfuse as necessary Acute anemia due to GI bleedstatus post 1 unit of transfusion, monitor hemoglobin. Alcohol abuse Tobacco abuse -Patient extensively counseled on importance of cessation -[facility] protocol - Folic acid, B1, & multivitamin - Nicotine patch DVT prophylaxisSCDs, anticoagulation contraindicated secondary to active GI bleed (2) GI bleed Qualifiers: GI bleed type/associated pathology: unspecified gastrointestinal hemorrhage type Qualified Code(s): K92.2 - Gastrointestinal hemorrhage, unspecified
[2018-03-04 12:47] LABS: Hemoglobin 8.1 gm/dL (13.0-17.0)
--- NOTE | 2018-03-04 16:35 | ECG ---
Date Performed: 03/03/2018 Time Performed: 16:28:42 PTAGE: 57 years EKG: Sinus rhythm SEPTAL MYOCARDIAL INFARCTION ABNORMAL ECG PREVIOUS TRACING 01/09/2018 @ 12.02 Since the previous tracing, no significant change noted DOCTOR: Reno Matthews Interpretating Date/Time 03/04/2018 16:32:53
[2018-03-04 20:17] LABS: Hemoglobin 7.9 gm/dL (13.0-17.0)
[2018-03-05] MEDS: Morphine Inj 4 MG/ML Vial IV.PUSH PRN ×6 (00:57→21:59)
[2018-03-05 01:05] LABS: Hematocrit 24.2 % (39.0-51.0)
[2018-03-05] MEDS: Sod Chloride 0.9% Inj 1,000 ML IV.CONT SCH ×3 (03:30→20:20)
[2018-03-05 06:01] LABS: Hemoglobin 8.1 gm/dL (13.0-17.0)
[2018-03-05] MEDS: Pantoprazole Inj 40 MG Vial IV.PUSH SCH ×2 (09:11→20:21)
[2018-03-05] MEDS: Senna/Docusate Sodium 8.6/50 MG Tablet PO SCH ×2 (09:11→20:22)
[2018-03-05] MEDS: Multivitamin/Minerals Therapeutic Tablet PO SCH (09:13)
[2018-03-05] MEDS: Folic Acid 1 MG Tablet PO SCH (09:13)
--- NOTE | 2018-03-05 13:50 | P.PNIM ---
Subjective Interval history: Patient states that he is hungry and wants to try to drink some soup. He reports some upper abdominal pain. No nausea or vomiting. Physical Exam Vital signs: Last Vital Signs Temp 99.0 F 03/05/18 04:00 Pulse 64 03/05/18 04:00 Resp 22 03/05/18 04:00 BP 150/70 H 03/05/18 04:00 Pulse Ox 96 03/05/18 04:00 Intake & Output 03/03/18 03/04/18 03/05/18 03/06/18 06:59 06:59 06:59 06:59 Intake Total 3050 / 3050 250 / 250 Output Total 4850 / 4850 Balance -1800 / -1800 250 / 250 Weight 63.503 kg 64.1 kg Narrative: GENERAL: This is a well-nourished, well-developed patient, in no apparent distress. CARDIOVASCULAR: Regular rate and rhythm RESPIRATORY: Clear to auscultation. Breath sounds equal bilaterally. No wheezes , rales, or rhonchi. GASTROINTESTINAL: Abdomen soft, mild epigastric tenderness, nondistended. Normal active bowel sounds MUSCULOSKELETAL: Extremities without clubbing, cyanosis, or edema. NEURO: Alert & Oriented x4 to person, place, time, situation. Moves all ext x4 Results Labs CBC & Chem 7: 03/05/18 05:20 03/04/18 05:49 Procedures Procedures: ndoscopy Assessment and Plan (1) GI bleed: Code(s): K92.2 - Gastrointestinal hemorrhage, unspecified Status: Acute (2) Acute blood loss anemia: Code(s): D62 - Acute posthemorrhagic anemia Status: Acute (3) Abdominal pain: Code(s): R10.9 - Unspecified abdominal pain Status: Acute Plan 57-year-old male with past medical history significant for pancreatitis, anemia, tobacco, alcohol abuse, and GI bleed who presents to the emergency department with complaints of abdominal pain, nausea, vomiting and bloody stools. Acute gastrointestinal bleed with active bleeding requiring 1 unit packed red blood cell transfusion s/p upper endoscopy with GI with findings of mild esophagitis, questionable Orly biopsy from distal esophagus, duodenal large bulb ulcer with active bleeding in which pulsating artery was clipped and epinephrine was injected with cauterization following. GI recommends PPI, start clears as hb remains stable If continues to bleed patient will need embolization from radiology. -Continue IV Protonix -Continue monitoring H&H, transfuse as necessary Acute anemia due to GI bleedstatus post 1 unit of transfusion, monitor hemoglobin. Alcohol abuse Tobacco abuse -Patient extensively counseled on importance of cessation -[facility] protocol - Folic acid, B1, & multivitamin - Nicotine patch DVT prophylaxisSCDs, anticoagulation contraindicated secondary to active GI bleed Transfer out of ICU Progress Note: Quality VTE Deep Vein Thrombosis/Pulmonary Embolism Present on Admission: No _ (1) GI bleed Qualifiers: GI bleed type/associated pathology: unspecified gastrointestinal hemorrhage type Gastritis type: Qualified Code(s): K92.2 - Gastrointestinal hemorrhage, unspecified (2) Abdominal pain Qualifiers: Abdominal location:
[2018-03-05 14:01] LABS: Hematocrit 24.1 % (39.0-51.0); Hemoglobin 7.9 gm/dL (13.0-17.0)
--- NOTE | 2018-03-05 15:50 | P.PNGI ---
Subjective Interval history: Patient sitting up in bed post EGD with gastric ablation Denies any nausea or vomiting N.p.o. <Debora Rodriguez - Last Filed: 03/05/18 15:44> Physical Exam Vital signs: Vital Signs 03/04/18 16:00 03/04/18 20:00 03/04/18 20:14 Temperature 98.0 F 98.1 F Pulse Rate 72 75 Respiratory Rate 20 22 Blood Pressure 182/83 H 148/81 H Pulse Oximetry 98 100 100 03/05/18 00:00 03/05/18 04:00 Temperature 98.5 F 99.0 F Pulse Rate 85 64 Respiratory Rate 19 22 Blood Pressure 148/74 H 150/70 H Pulse Oximetry 100 96 Intake & Output 03/04/18 03/05/18 03/05/18 18:59 06:59 18:59 Intake Total 250 / 250 Balance 250 / 250 Weight 64.1 kg Intake: IV 250 / 250 NS Inj 250 ML @ 15 mls/hr IV. 250 / 250 SIG ONCE RYAN Rx#:[id number] Other: # Voids 3 5 Date of Last Bowel Movement 03/04/18 # Bowel Movements 1 Weight On Admission 63.503 kg - Constitutional no acute distress - Routine HEENT Exam Head: Present: normocephalic - Routine Respiratory Exam Present: CTA bilaterally. Absent: accessory muscle use - Routine Cardiovascular Exam Present: RRR - Routine Abdominal Exam Present: soft, normoactive bowel sounds. Absent: tenderness, distended, guarding, firm - Routine Extremities Exam Absent: edema - Routine Skin Exam Present: dry, warm - Routine Neurological Exam Present: alert, oriented X3 <Debora Rodriguez - Last Filed: 03/05/18 15:44> Vital signs: Vital Signs 03/04/18 20:00 03/04/18 20:14 03/05/18 00:00 Temperature 98.1 F 98.5 F Pulse Rate 75 85 Respiratory Rate 22 19 Blood Pressure 148/81 H 148/74 H Pulse Oximetry 100 100 100 03/05/18 04:00 Temperature 99.0 F Pulse Rate 64 Respiratory Rate 22 Blood Pressure 150/70 H Pulse Oximetry 96 Intake & Output 03/04/18 03/05/18 03/05/18 18:59 06:59 18:59 Intake Total 250 / 250 1000 / 1000 Balance 250 / 250 1000 / 1000 Weight 64.1 kg Intake: IV 250 / 250 1000 / 1000 NS Inj 1,000 ML @ 100 mls/hr IV 1000 / 1000 .CONT .Q10H RYAN Rx#:[id number] NS Inj 250 ML @ 15 mls/hr IV. 250 / 250 SIG ONCE RYAN Rx#:[id number] Other: # Voids 3 5 Date of Last Bowel Movement 03/04/18 # Bowel Movements 1 Weight On Admission 63.503 kg <Isra Capone - Last Filed: 03/05/18 17:38> Results - Labs CBC & Chem 7: 03/05/18 13:00 03/04/18 05:49 Laboratory Results - last 24 hr 03/04/18 03/04/18 03/04/18 18:38 18:56 21:20 Hgb 7.9 L Hct 24.0 L POC Glucose 88 87 03/05/18 03/05/18 03/05/18 00:57 05:20 13:00 Hgb 8.0 L 8.1 L 7.9 L Hct 24.2 L 24.0 L 24.1 L POC Glucose - Procedures ndoscopy <Debora Rodriguez - Last Filed: 03/05/18 15:44> - Labs CBC & Chem 7: 03/05/18 13:00 03/04/18 05:49 Laboratory Results - last 24 hr 03/04/18 03/04/18 03/04/18 18:38 18:56 21:20 Hgb 7.9 L Hct 24.0 L POC Glucose 88 87 03/05/18 03/05/18 03/05/18 00:57 05:20 13:00 Hgb 8.0 L 8.1 L 7.9 L Hct 24.2 L 24.0 L 24.1 L POC Glucose <Isra Capone - Last Filed: 03/05/18 17:38> Assessment and Plan (1) GI bleed Status: Acute Code(s): K92.2 - Gastrointestinal hemorrhage, unspecified (2) Acute blood loss anemia Status: Acute Code(s): D62 - Acute posthemorrhagic anemia (3) Abdominal pain Status: Acute Code(s): R10.9 - Unspecified abdominal pain - Plan This patient is a 57-year-old male who has a past medical history significant for pancreatitis, anemia, tobacco and alcohol abuse. Patient also has history of gastric ulcers. Patient states he presented to the emergency room at [facility] on 03/03/2018 with complaints of upper and lower abdominal pain that began 1 week ago. Patient describes the pain as throbbing and sharp. He denies radiation of the pain and denies any alleviating or aggravating factors. Patient rates pain at this time is 8 out of 10. Patient reports that he was taking Rolaids at home without relief. Reports associated nausea and vomiting for the past 3-4 days. Denies any blood in emesis, describes emesis as dark yellow. Patient reports prior to the onset of pain, he experienced loose brown stool for 1 week. For the last 2-3 days patient states he has noted dark stools with a small amount of bright red bleeding. Patient states stools are very dark almost black. Patient also states that he has been experiencing some dizziness and lightheadedness. Denies chest pain palpitations or shortness of breath. Our service has been consulted to evaluate patient's report of GI bleeding. Last EGD was done on 01/10/2018 and revealed the following findings: 1. The esophagus appeared normal 2. Multiple erosions were found in the gastric antrum 3. Large non-bleeding ulcer was found in the 1st part of the duodenum; Submucosal injection of 5ml of epinephrine 1:10,000 was performed around the bleeding site, followed by Bipolar coagulation. 4. Retroflexion was performed and was normal Patient denies any known family history of gastrointestinal disorders/diseases. Patient denies ever having had a colonoscopy. Denies any use of NSAIDs or aspirin. Denies any prescription medication use. Patient states stools are normally brown with 1-2 BMs daily. Discussed need for EGD with possible control of bleeding, patient verbalizes understanding and agreement. GI bleed/abdominal pain/alcohol abuse Last EGD with findings as noted above. Plan for EGD today. Hemoglobin 8.8 hematocrit 26.9 INR 1.0. 03/03/2018 CT abdomen and pelvis revealed the following findings: 1. Mild to moderate diverticulosis with no definite inflammatory change. There is a nonobstructive bowel gas pattern. 2. The gallbladder is decompressed but otherwise unremarkable. 3. Moderate to severe hepatic steatosis again noted. 03/05/2018 Patient post EGD with gastric ablation on 03/04/2018. Findings as follows--> Esophagus: Mild esophagitis, questionable Orly biopsy from the distal esophagus. Stomach normal with significant amount of blood in the stomach most likely coming from the duodenal ulcer Duodenum large duodenal bulb ulcer with active bleeding, pulsating artery this was clipped by 2 clips and then injected with 6 cc of epinephrine. Also cauterized with gold probe. There was complete stop of the bleeding but this could be temporarily and the patient can bleed again. Patient denies any nausea vomiting or active bleeding. Hemoglobin 7.9 hematocrit 24.1 Plan -N.p.o. -Monitor for bleeding -Monitor H&H -Zofran as needed -Continue PPI -Avoid anticoagulants, NSAIDs or aspirin -Discussed alcohol cessation -Supportive care -Further recommendations to follow based on patient status and findings This patient has been seen by myself and Dr. Capone and this note is written on his behalf - Attending Attestation Dr. Capone <Debora Rodriguez - Last Filed: 03/05/18 15:44> (1) GI bleed Status: Acute Code(s): K92.2 - Gastrointestinal hemorrhage, unspecified (2) Acute blood loss anemia Status: Acute Code(s): D62 - Acute posthemorrhagic anemia (3) Abdominal pain Status: Acute Code(s): R10.9 - Unspecified abdominal pain - Plan Patient seen and examined Agree with above Monitor labs Continue with current supportive care <Isra Capone E - Last Filed: 03/05/18 17:38> <Debora Rodriguez - Last Filed: 03/05/18 15:44> (1) GI bleed Qualifiers: GI bleed type/associated pathology: unspecified gastrointestinal hemorrhage type Qualified Code(s): K92.2 - Gastrointestinal hemorrhage, unspecified <Isra Capone E - Last Filed: 03/05/18 17:38> (1) GI bleed Qualifiers: GI bleed type/associated pathology: unspecified gastrointestinal hemorrhage type Qualified Code(s): K92.2 - Gastrointestinal hemorrhage, unspecified
[2018-03-05 20:19] LABS: Hematocrit 24.1 % (39.0-51.0); Hemoglobin 7.9 gm/dL (13.0-17.0)
[2018-03-06] MEDS: Morphine Inj 4 MG/ML Vial IV.PUSH PRN (04:39)
[2018-03-06] MEDS: Sod Chloride 0.9% Inj 1,000 ML IV.CONT SCH ×3 (05:52→17:19)
[2018-03-06 07:25] LABS: Baso # (Auto) 0.1 th/mm3 (0.0-0.2); Baso % (Auto) 1.4 % (0.0-2.0); Eos # (Auto) 0.3 th/mm3 (0.0-0.4); Eos % (Auto) 4.5 % (0.0-4.0); Hematocrit 21.9 % (39.0-51.0); Hemoglobin 7.2 gm/dL (13.0-17.0); Lymph # (Auto) 1.2 th/mm3 (1.0-4.8); Lymph % (Auto) 18.5 % (9.0-44.0); Mean Corpuscular Volume 90.8 fL (80.0-100.0); Mean Platelet Volume 7.7 fL (7.0-11.0); Mono # (Auto) 0.8 th/mm3 (0.0-0.9); Mono % (Auto) 11.8 % (0.0-8.0); Neut # (Auto) 4.3 th/mm3 (1.8-7.7); Neut % (Auto) 63.8 % (16.0-70.0); Platelet Count 319 th/mm3 (150-450); Red Blood Count 2.41 mil/mm3 (4.50-5.90); White Blood Count 6.7 th/mm3 (4.0-11.0)
[2018-03-06] MEDS: Folic Acid 1 MG Tablet PO SCH (08:55)
[2018-03-06] MEDS: Senna/Docusate Sodium 8.6/50 MG Tablet PO SCH ×2 (08:56→20:54)
[2018-03-06] MEDS: Pantoprazole Inj 40 MG Vial IV.PUSH SCH ×2 (08:56→20:55)
[2018-03-06] MEDS ORDERED: Sodium Chlor 0.9% Inj 250 ML IV.SIG SCH (09:00)
[2018-03-06] MEDS: Multivitamin/Minerals Therapeutic Tablet PO SCH (09:03)
--- NOTE | 2018-03-06 12:20 | P.PNGI ---
Subjective Interval history: Pt is resting in bed, inquiring about diet, no more bleeding. Physical Exam Vital signs: Vital Signs 03/05/18 14:00 03/05/18 16:00 03/05/18 18:00 Temperature Pulse Rate 78 78 72 Respiratory Rate Blood Pressure Pulse Oximetry 03/05/18 19:12 03/05/18 20:00 03/05/18 20:56 Temperature 98.3 F 97.9 F Pulse Rate 93 H 91 H 84 Respiratory Rate 16 18 Blood Pressure 152/56 H 128/76 Pulse Oximetry 100 99 03/06/18 00:00 03/06/18 04:00 03/06/18 08:00 Temperature 98.3 F 98.1 F 98 F Pulse Rate 79 75 81 Respiratory Rate 18 18 18 Blood Pressure 111/59 L 127/67 140/91 H Pulse Oximetry 99 99 98 03/06/18 11:28 Temperature Pulse Rate Respiratory Rate Blood Pressure Pulse Oximetry 95 Intake & Output 03/05/18 03/06/18 03/06/18 18:59 06:59 18:59 Intake Total 1200 / 1200 2964 / 2964 Output Total 1600 / 1600 Balance -400 / -400 2964 / 2964 Intake: IV 1000 / 1000 1600 / 1600 NS Inj 1,000 ML @ 100 mls/hr IV 1000 / 1000 1600 / 1600 .CONT .Q10H RYAN Rx#:[id number] Oral 200 / 200 1364 / 1364 Output: Urine 1600 / 1600 Other: # Voids 5 8 Date of Last Bowel Movement 03/04/18 03/04/18 # Bowel Movements 0 Narrative: GENERAL: This is a well-nourished, well-developed patient, in no apparent distress. CARDIOVASCULAR: Regular rate and rhythm RESPIRATORY: Clear to auscultation. Breath sounds equal bilaterally. No wheezes , rales, or rhonchi. GASTROINTESTINAL: Abdomen soft, no tenderness, nondistended. Normal active bowel sounds MUSCULOSKELETAL: Extremities without clubbing, cyanosis, or edema. NEURO: Alert & Oriented x4 Results - Labs CBC & Chem 7: 03/06/18 06:27 03/04/18 05:49 Laboratory Results - last 24 hr 03/03/18 03/05/18 03/05/18 22:44 13:00 19:43 WBC RBC Hgb 7.9 L 7.9 L Hct 24.1 L 24.1 L MCV MCH MCHC RDW Plt Count MPV Neut % (Auto) Lymph % (Auto) Crane % (Auto) Eos % (Auto) Baso % (Auto) Neut # (Auto) Lymph # (Auto) Crane # (Auto) Eos # (Auto) Baso # (Auto) WBC Differential Differential Comment Blood Type Antibody Screen MTS Gel Crossmatch See Detail 03/06/18 03/06/18 06:27 09:45 WBC 6.7 RBC 2.41 L Hgb 7.2 L Hct 21.9 L MCV 90.8 MCH 30.0 MCHC 33.0 RDW 16.0 Plt Count 319 MPV 7.7 Neut % (Auto) 63.8 Lymph % (Auto) 18.5 Crane % (Auto) 11.8 H Eos % (Auto) 4.5 H Baso % (Auto) 1.4 Neut # (Auto) 4.3 Lymph # (Auto) 1.2 Crane # (Auto) 0.8 Eos # (Auto) 0.3 Baso # (Auto) 0.1 WBC Differential . Differential Comment Auto diff final Blood Type A Positive Antibody Screen Negative MTS Gel Crossmatch See Detail - Procedures ndoscopy Assessment and Plan (1) GI bleed Status: Acute Code(s): K92.2 - Gastrointestinal hemorrhage, unspecified (2) Acute blood loss anemia Status: Acute Code(s): D62 - Acute posthemorrhagic anemia (3) Abdominal pain Status: Acute Code(s): R10.9 - Unspecified abdominal pain - Plan - Duodenal ulcer and related anemia and Gi bleed- EGD 03/04/2018. Findings as follows--> Esophagus: Mild esophagitis, questionable Orly biopsy from the distal esophagus. Stomach normal with significant amount of blood in the stomach most likely coming from the duodenal ulcer Duodenum large duodenal bulb ulcer with active bleeding, pulsating artery this was clipped by 2 clips and then injected with 6 cc of epinephrine. Also cauterized with gold probe. There was complete stop of the bleeding but this could be temporarily and the patient can bleed again. Patient denies any nausea vomiting or active bleeding. Hemoglobin 7.2 seems to be stable 03/03/2018 CT abdomen and pelvis revealed the following findings: 1. Mild to moderate diverticulosis with no definite inflammatory change. There is a nonobstructive bowel gas pattern. 2. The gallbladder is decompressed but otherwise unremarkable. 3. Moderate to severe hepatic steatosis again noted. Plan: - Advance diet - will monitor for any signs of bleeding, - IR for active bleed - Cont. Protonix - Transfuse as needed - Notify GI for active bleed - Pt seen and examined by Dr. Pendleton and myself and this note is written on her behalf (1) GI bleed Qualifiers: GI bleed type/associated pathology: unspecified gastrointestinal hemorrhage type Qualified Code(s): K92.2 - Gastrointestinal hemorrhage, unspecified
[2018-03-06] MEDS: Morphine Sulfate 15 MG IR Tablet PO PRN ×2 (12:33→17:17)
--- NOTE | 2018-03-06 17:59 | P.PNIM ---
Subjective Interval history: Patient was admitted for GI bleed, EGD showed source was duodenum. He complains of abdominal pain as well as hunger. He was anemic this morning and is receiving 2 units of packed red blood cells today. Physical Exam Vital signs: Vital Signs 03/05/18 18:00 03/05/18 19:12 03/05/18 20:00 Temperature 98.3 F 97.9 F Pulse Rate 72 93 H 91 H Respiratory Rate 16 18 Blood Pressure 152/56 H 128/76 Pulse Oximetry 100 99 03/05/18 20:56 03/06/18 00:00 03/06/18 04:00 Temperature 98.3 F 98.1 F Pulse Rate 84 79 75 Respiratory Rate 18 18 Blood Pressure 111/59 L 127/67 Pulse Oximetry 99 99 03/06/18 08:00 03/06/18 11:28 03/06/18 12:00 Temperature 98 F 97.9 F Pulse Rate 81 77 Respiratory Rate 18 18 Blood Pressure 140/91 H 125/76 Pulse Oximetry 98 95 99 03/06/18 14:18 03/06/18 14:20 03/06/18 14:24 Temperature 98.1 F 98.1 F 98.1 F Pulse Rate 95 H 82 Respiratory Rate 20 14 Blood Pressure 124/71 124/71 124/71 Pulse Oximetry 03/06/18 14:40 03/06/18 16:00 Temperature 98.2 F 98.1 F Pulse Rate 84 71 Respiratory Rate 18 18 Blood Pressure 115/76 121/66 Pulse Oximetry 99 Intake & Output 03/05/18 03/06/18 03/06/18 18:59 06:59 18:59 Intake Total 1200 / 1200 2964 / 2964 900 / 900 Output Total 1600 / 1600 Balance -400 / -400 2964 / 2964 900 / 900 Intake: IV 1000 / 1000 1600 / 1600 900 / 900 NS Inj 1,000 ML @ 100 mls/hr IV 1000 / 1000 1600 / 1600 900 / 900 .CONT .Q10H RYAN Rx#:[id number] Oral 200 / 200 1364 / 1364 Intake (Blood Product) Amt 0 / 0 Rbc As-3 Leukoreduced Unit 0 / 0 [id number] Output: Urine 1600 / 1600 Other: # Voids 5 8 Date of Last Bowel Movement 03/04/18 03/04/18 # Bowel Movements 0 Narrative: GENERAL: AAOx3, hungry, complaining of pain SKIN: Warm and dry. No rashes HEAD: Atruamtic, normocephalic. EYES: No scleral icterus. No injection or drainage. ENT: Moist mucous membranes, patent nares, no erythema of oropharynx. NECK: Supple, trachea midline. No JVD or lymphadenopathy. Normal thyroid. CARDIOVASCULAR: Regular rate and rhythm. No murmurs, gallops, or rubs. RESPIRATORY: Breath sounds clear equal bilaterally. No crackles or wheezes. No accessory muscle use. GASTROINTESTINAL: Abdomen soft, non-tender, nondistended, normal active bowel sounds MUSCULOSKELETAL: No cyanosis, or edema. NEURO: CN II-XII grossly intact, no focal deficits, no slurring of speech Results - Labs CBC & Chem 7: 03/06/18 06:27 03/04/18 05:49 Laboratory Results - last 24 hr 03/03/18 03/05/18 03/06/18 22:44 19:43 06:27 WBC 6.7 RBC 2.41 L Hgb 7.9 L 7.2 L Hct 24.1 L 21.9 L MCV 90.8 MCH 30.0 MCHC 33.0 RDW 16.0 Plt Count 319 MPV 7.7 Neut % (Auto) 63.8 Lymph % (Auto) 18.5 Mclean % (Auto) 11.8 H Eos % (Auto) 4.5 H Baso % (Auto) 1.4 Neut # (Auto) 4.3 Lymph # (Auto) 1.2 Mclean # (Auto) 0.8 Eos # (Auto) 0.3 Baso # (Auto) 0.1 WBC Differential . Differential Comment Auto diff final Blood Type Antibody Screen MTS Gel Crossmatch See Detail 03/06/18 09:45 WBC RBC Hgb Hct MCV MCH MCHC RDW Plt Count MPV Neut % (Auto) Lymph % (Auto) Mclean % (Auto) Eos % (Auto) Baso % (Auto) Neut # (Auto) Lymph # (Auto) Mclean # (Auto) Eos # (Auto) Baso # (Auto) WBC Differential Differential Comment Blood Type A Positive Antibody Screen Negative MTS Gel Crossmatch See Detail - Procedures ndoscopy Assessment and Plan - Assessment (1) GI bleed Code(s): K92.2 - Gastrointestinal hemorrhage, unspecified Status: Acute (2) Acute blood loss anemia Code(s): D62 - Acute posthemorrhagic anemia Status: Acute (3) Abdominal pain Code(s): R10.9 - Unspecified abdominal pain Status: Acute - Plan 57-year-old male with past medical history significant for pancreatitis, anemia, tobacco, alcohol abuse, and GI bleed who presents to the emergency department with complaints of abdominal pain, nausea, vomiting and bloody stools. Acute gastrointestinal bleed Patient received 1 unit of packed red blood cells following admission, hemoglobin was down to 7.2 again this morning Patient given 2 more units of packed red blood cells on 03/06/2018 EGD showed pulsing artery which was clipped and treated with epinephrine injection, cauterized If continues to bleed patient will need embolization from radiology Continuing IV Protonix Advance diet to regular Continue to monitor CBC Appreciate gastroenterology consult Alcohol and tobacco abuse Patient counseled on the importance of cessation Continue CIWA protocol Continue folic acid, B1, & multivitamin Continue nicotine patch DVT prophylaxis SCDs, anticoagulation contraindicated secondary to active GI bleed (1) GI bleed Qualifiers: GI bleed type/associated pathology: unspecified gastrointestinal hemorrhage type Qualified Code(s): K92.2 - Gastrointestinal hemorrhage, unspecified
[2018-03-06] MEDS: Morphine Sulfate Inj 2 MG/ML Vial IV.PUSH PRN (20:54)
[2018-03-06] MEDS: Sucralfate Liq 1 GM/10 ML UDC PO SCH (22:16)
[2018-03-07] MEDS: Morphine Sulfate Inj 2 MG/ML Vial IV.PUSH PRN ×8 (00:14→23:57)
[2018-03-07 01:07] LABS: Mean Corpuscular HGB Conc 33.7 % (32.0-36.0); Mean Corpuscular Hemoglobin 30.3 pg (27.0-34.0); Mean Platelet Volume 7.6 fL (7.0-11.0); Platelet Count 278 th/mm3 (150-450); Red Blood Count 2.28 mil/mm3 (4.50-5.90); Red Cell Distribution Width 15.3 % (11.6-17.2); White Blood Count 10.7 th/mm3 (4.0-11.0)
[2018-03-07 01:12] LABS: Hematocrit 20.5 % (39.0-51.0); Hemoglobin 6.9 gm/dL (13.0-17.0)
[2018-03-07 01:24] LABS: Calcium 7.2 mg/dL (8.5-10.1); Carbon Dioxide 25.5 meq/L (21.0-32.0); Potassium 3.8 meq/L (3.5-5.1)
[2018-03-07 01:41] LABS: Total Protein 4.6 g/dL (6.4-8.2)
[2018-03-07] MEDS ORDERED: Sodium Chlor 0.9% Inj 250 ML IV.SIG SCH (02:00)
[2018-03-07] MEDS: Sod Chloride 0.9% Inj 1,000 ML IV.CONT SCH ×2 (02:09→13:10)
[2018-03-07] MEDS: Sucralfate Liq 1 GM/10 ML UDC PO SCH ×3 (05:42→21:59)
[2018-03-07] MEDS: Pantoprazole Inj 40 MG Vial IV.PUSH SCH ×3 (07:37→20:27)
[2018-03-07] MEDS: Multivitamin/Minerals Therapeutic Tablet PO SCH (08:43)
[2018-03-07] MEDS: Senna/Docusate Sodium 8.6/50 MG Tablet PO SCH ×2 (08:43→20:27)
[2018-03-07] MEDS: Folic Acid 1 MG Tablet PO SCH (08:43)
--- NOTE | 2018-03-07 09:32 | P.PNGI ---
Subjective Interval history: Pt is resting in bed, had few episodes of melena last night, hgb declined, he is currently receiving blood transfusion, no nausea or vomiting. He is having abd cramps, going to IR today for embolization <MoiseschiquiMichellechristie - Last Filed: 03/07/18 09:28> Physical Exam Vital signs: Vital Signs 03/06/18 11:28 03/06/18 12:00 03/06/18 14:18 Temperature 97.9 F 98.1 F Pulse Rate 90 95 H Respiratory Rate 18 20 Blood Pressure 125/76 124/71 Pulse Oximetry 95 99 03/06/18 14:20 03/06/18 14:24 03/06/18 14:40 Temperature 98.1 F 98.1 F 98.2 F Pulse Rate 82 84 Respiratory Rate 14 18 Blood Pressure 124/71 124/71 115/76 Pulse Oximetry 03/06/18 16:00 03/06/18 18:31 03/06/18 18:56 Temperature 98.1 F 98.7 F 98.7 F Pulse Rate 70 75 75 Respiratory Rate 18 20 18 Blood Pressure 121/66 117/74 124/68 Pulse Oximetry 99 96 98 03/06/18 20:00 03/06/18 20:38 03/06/18 22:15 Temperature 98.7 F Pulse Rate 87 88 Respiratory Rate 18 18 Blood Pressure 134/81 Pulse Oximetry 96 03/06/18 23:05 03/07/18 00:02 03/07/18 00:45 Temperature 98.2 F 97.4 F L Pulse Rate 107 H 103 H 113 H Respiratory Rate 18 20 Blood Pressure 114/68 116/74 Pulse Oximetry 96 03/07/18 01:00 EDT 03/07/18 02:10 03/07/18 02:34 Temperature 97.4 F L 97.4 F L Pulse Rate 92 H 94 H Respiratory Rate 20 20 20 Blood Pressure 110/62 110/62 Pulse Oximetry 97 97 03/07/18 02:51 03/07/18 03:55 03/07/18 04:20 Temperature 98.8 F Pulse Rate 91 H 102 H Respiratory Rate 16 20 Blood Pressure 109/63 Pulse Oximetry 97 03/07/18 05:45 03/07/18 08:00 03/07/18 08:34 Temperature 98.3 F 98.7 F Pulse Rate 97 H 86 Respiratory Rate 20 16 Blood Pressure 119/70 107/66 Pulse Oximetry 98 98 98 03/07/18 08:39 03/07/18 08:54 03/07/18 09:10 Temperature 98.7 F 98.4 F Pulse Rate 91 H 90 Respiratory Rate 18 18 18 Blood Pressure 116/77 137/83 Pulse Oximetry Intake & Output 03/06/18 03/07/18 03/07/18 19:59 06:59 18:59 Intake Total 100 / 100 Balance 100 / 100 Weight Intake: IV 100 / 100 NS Inj 1,000 ML @ 100 mls/hr IV .CONT .Q10H [facility] Rx#:[id number] NS Inj 250 ML @ 15 mls/hr IV. 100 / 100 SIG ONCE [facility] Rx#:[id number] Oral Other Rbc As-3 Leukoreduced Unit [id number] Intake (Blood Product) Amt 0 / 0 Rbc As-3 Leukoreduced Unit 0 / 0 [id number] Rbc As-3 Leukoreduced Unit [id number] Rbc As-3 Leukoreduced Unit [id number] Rbc As-3 Leukoreduced Unit [id number] Other: Other Intake Source # Voids Date of Last Bowel Movement # Bowel Movements Narrative: GENERAL: AAOx3 SKIN: Warm and dry. No rashes NECK: Supple, trachea midline. CARDIOVASCULAR: Regular rate and rhythm. No murmurs, gallops, or rubs. RESPIRATORY: Breath sounds clear equal bilaterally. No crackles or wheezes. No accessory muscle use. GASTROINTESTINAL: Abdomen soft, tender, nondistended, normal active bowel sounds MUSCULOSKELETAL: No cyanosis, or edema. NEURO: CN II-XII grossly intact, no focal deficits, no slurring of speech <Al Luz - Last Filed: 03/07/18 09:28> Vital signs: Vital Signs 03/06/18 20:38 03/06/18 22:15 03/06/18 23:05 Temperature 98.7 F 98.2 F Pulse Rate 88 107 H Respiratory Rate 18 18 18 Blood Pressure 134/81 114/68 Pulse Oximetry 96 96 03/07/18 00:02 03/07/18 00:45 03/07/18 01:00 EDT Temperature 97.4 F L Pulse Rate 103 H 113 H Respiratory Rate 20 20 Blood Pressure 116/74 Pulse Oximetry 03/07/18 02:10 03/07/18 02:34 03/07/18 02:51 Temperature 97.4 F L 97.4 F L 98.8 F Pulse Rate 92 H 94 H 91 H Respiratory Rate 20 20 16 Blood Pressure 110/62 110/62 109/63 Pulse Oximetry 97 97 97 03/07/18 03:55 03/07/18 04:20 03/07/18 05:45 Temperature 98.3 F Pulse Rate 102 H 97 H Respiratory Rate 20 20 Blood Pressure 119/70 Pulse Oximetry 98 03/07/18 08:00 03/07/18 08:34 03/07/18 08:39 Temperature 98.7 F Pulse Rate 86 Respiratory Rate 16 18 Blood Pressure 107/66 Pulse Oximetry 98 98 03/07/18 08:54 03/07/18 09:10 03/07/18 11:01 Temperature 98.7 F 98.4 F Pulse Rate 91 H 90 Respiratory Rate 18 18 18 Blood Pressure 116/77 137/83 Pulse Oximetry 03/07/18 12:28 03/07/18 13:09 03/07/18 13:32 Temperature 98.3 F 98.0 F 98.7 F Pulse Rate 81 94 H 109 H Respiratory Rate 17 18 18 Blood Pressure 136/85 134/91 H 122/96 H Pulse Oximetry 97 99 03/07/18 14:02 03/07/18 15:02 03/07/18 16:00 Temperature 98.3 F 98.2 F 98.3 F Pulse Rate 108 H 82 103 H Respiratory Rate 16 18 Blood Pressure 149/97 H 141/82 H 143/80 H Pulse Oximetry 98 03/07/18 16:18 03/07/18 18:02 03/07/18 18:20 Temperature 98.1 F Pulse Rate 87 86 Respiratory Rate 18 20 Blood Pressure 184/81 H 173/77 H Pulse Oximetry Intake & Output 03/07/18 03/07/18 03/08/18 06:59 18:59 06:59 Intake Total 2460 / 2460 Output Total 1825 / 1825 Balance 635 / 635 Weight Intake: IV 1100 / 1100 NS Inj 1,000 ML @ 100 mls/hr IV 1000 / 1000 .CONT .Q10H [facility] Rx#:[id number] NS Inj 250 ML @ 15 mls/hr IV. 100 / 100 SIG ONCE [facility] Rx#:[id number] Oral 960 / 960 Other Rbc As-3 Leukoreduced Unit [id number] Intake (Blood Product) Amt 400 / 400 Rbc As-3 Leukoreduced Unit 400 / 400 [id number] Rbc As-3 Leukoreduced Unit [id number] Rbc As-3 Leukoreduced Unit [id number] Output: Urine 1825 / 1825 Other: # Voids Date of Last Bowel Movement 03/07/18 # Bowel Movements 1 <Aggie Pendleton - Last Filed: 03/07/18 19:31> Results - Labs CBC & Chem 7: 03/07/18 01:00 EST 03/07/18 01:00 EST Laboratory Results - last 24 hr 03/03/18 03/06/18 03/07/18 22:44 09:45 00:57 WBC RBC Hgb Hct MCV MCH MCHC RDW Plt Count MPV Sodium Potassium Chloride Carbon Dioxide Anion Gap BUN Creatinine Estimated GFR POC Glucose 167 H Random Glucose Calcium Prot Corrected Calcium Total Protein Blood Type A Positive Antibody Screen Negative MTS Gel Crossmatch See Detail See Detail 03/07/18 03/07/18 03/07/18 01:00 EST 01:00 EST 01:44 EST WBC 10.7 D RBC 2.28 L Hgb 6.9 L* Hct 20.5 L* MCV 90.0 MCH 30.3 MCHC 33.7 RDW 15.3 Plt Count 278 MPV 7.6 Sodium 144 Potassium 3.8 Chloride 112 H Carbon Dioxide 25.5 Anion Gap 7 BUN 12 Creatinine 0.90 Estimated GFR 87 L POC Glucose Random Glucose 140 H Calcium 7.2 L* Prot Corrected Calcium 8.6 Total Protein 4.6 L D Blood Type Antibody Screen MTS Gel Crossmatch See Detail 03/07/18 07:16 WBC RBC Hgb Hct MCV MCH MCHC RDW Plt Count MPV Sodium Potassium Chloride Carbon Dioxide Anion Gap BUN Creatinine Estimated GFR POC Glucose 124 H Random Glucose Calcium Prot Corrected Calcium Total Protein Blood Type Antibody Screen MTS Gel Crossmatch - Procedures ndoscopy <Al Luz - Last Filed: 03/07/18 09:28> - Labs CBC & Chem 7: 03/07/18 14:35 03/07/18 01:00 EST Laboratory Results - last 24 hr 03/06/18 03/07/18 03/07/18 09:45 00:57 01:00 EST WBC 10.7 D RBC 2.28 L Hgb 6.9 L* Hct 20.5 L* MCV 90.0 MCH 30.3 MCHC 33.7 RDW 15.3 Plt Count 278 MPV 7.6 Sodium Potassium Chloride Carbon Dioxide Anion Gap BUN Creatinine Estimated GFR POC Glucose 167 H Random Glucose Calcium Prot Corrected Calcium Total Protein MTS Gel Crossmatch See Detail 03/07/18 03/07/18 03/07/18 01:00 EST 01:44 EST 07:16 WBC RBC Hgb Hct MCV MCH MCHC RDW Plt Count MPV Sodium 144 Potassium 3.8 Chloride 112 H Carbon Dioxide 25.5 Anion Gap 7 BUN 12 Creatinine 0.90 Estimated GFR 87 L POC Glucose 124 H Random Glucose 140 H Calcium 7.2 L* Prot Corrected Calcium 8.6 Total Protein 4.6 L D MTS Gel Crossmatch See Detail 03/07/18 03/07/18 03/07/18 14:35 14:45 16:56 WBC RBC Hgb 8.4 L Hct 24.3 L MCV MCH MCHC RDW Plt Count MPV Sodium Potassium Chloride Carbon Dioxide Anion Gap BUN Creatinine Estimated GFR POC Glucose 136 H 148 H Random Glucose Calcium Prot Corrected Calcium Total Protein MTS Gel Crossmatch <Aggie Pendleton - Last Filed: 03/07/18 19:31> Assessment and Plan (1) GI bleed Status: Acute Code(s): K92.2 - Gastrointestinal hemorrhage, unspecified (2) Acute blood loss anemia Status: Acute Code(s): D62 - Acute posthemorrhagic anemia (3) Abdominal pain Status: Acute Code(s): R10.9 - Unspecified abdominal pain - Plan - Duodenal ulcer and related anemia and Gi bleed-had few episodes of melena last night, hgb declined, he is currently receiving blood transfusion, no nausea or vomiting. He is having abd cramps, going to IR today for embolization EGD 03/04/2018. Findings as follows--> Esophagus: Mild esophagitis, questionable Orly biopsy from the distal esophagus. Stomach normal with significant amount of blood in the stomach most likely coming from the duodenal ulcer Duodenum large duodenal bulb ulcer with active bleeding, pulsating artery this was clipped by 2 clips and then injected with 6 cc of epinephrine. Also cauterized with gold probe. There was complete stop of the bleeding but this could be temporarily and the patient can bleed again. Patient denies any nausea vomiting or active bleeding. Hemoglobin 7.2 seems to be stable 03/03/2018 CT abdomen and pelvis revealed the following findings: 1. Mild to moderate diverticulosis with no definite inflammatory change. There is a nonobstructive bowel gas pattern. 2. The gallbladder is decompressed but otherwise unremarkable. 3. Moderate to severe hepatic steatosis again noted. Plan: - NPO - IR for embolization today - Cont. Protonix - Monitor hh - Transfuse as needed - Notify GI for active bleed - Pt seen and examined by Dr. Pendleton and myself and this note is written on her behalf <Al Luz - Last Filed: 03/07/18 09:28> (1) GI bleed Status: Acute Code(s): K92.2 - Gastrointestinal hemorrhage, unspecified (2) Acute blood loss anemia Status: Acute Code(s): D62 - Acute posthemorrhagic anemia (3) Abdominal pain Status: Acute Code(s): R10.9 - Unspecified abdominal pain - Attending Attestation seen, examined agree with above <Aggie Pendleton - Last Filed: 03/07/18 19:31> <Al Luz - Last Filed: 03/07/18 09:28> (1) GI bleed Qualifiers: GI bleed type/associated pathology: unspecified gastrointestinal hemorrhage type Qualified Code(s): K92.2 - Gastrointestinal hemorrhage, unspecified <Aggie Pendleton - Last Filed: 03/07/18 19:31> (1) GI bleed Qualifiers: GI bleed type/associated pathology: unspecified gastrointestinal hemorrhage type Qualified Code(s): K92.2 - Gastrointestinal hemorrhage, unspecified
[2018-03-07] MEDS ORDERED: fentaNYL Citrate Inj 250 MCG/5 ML Ampul ONE (11:11)
[2018-03-07] MEDS ORDERED: Gelatin 12 MM/7 MM Topical Foam I-ARTERIAL ONE (12:00)
--- NOTE | 2018-03-07 12:13 | P.PNIM ---
Subjective Interval history: Patient received and tolerated 2 units of packed red blood cells yesterday but had a recurrence of his upper GI bleeding overnight that presented as blood in the toilet bowl. He is being transfused 2 more units again today. Gastroenterology has informed interventional radiology of this occurrence, the next plan of treatment was to do an embolization of the vessels feeding his varicosity in the duodenum. Physical Exam Vital signs: Vital Signs 03/06/18 14:18 03/06/18 14:20 03/06/18 14:24 Temperature 98.1 F 98.1 F 98.1 F Pulse Rate 95 H 82 Respiratory Rate 20 14 Blood Pressure 124/71 124/71 124/71 Pulse Oximetry 03/06/18 14:40 03/06/18 16:00 03/06/18 18:31 Temperature 98.2 F 98.1 F 98.7 F Pulse Rate 84 70 75 Respiratory Rate 18 18 20 Blood Pressure 115/76 121/66 117/74 Pulse Oximetry 99 96 03/06/18 18:56 03/06/18 20:00 03/06/18 20:38 Temperature 98.7 F 98.7 F Pulse Rate 75 87 88 Respiratory Rate 18 18 Blood Pressure 124/68 134/81 Pulse Oximetry 98 96 03/06/18 22:15 03/06/18 23:05 03/07/18 00:02 Temperature 98.2 F Pulse Rate 107 H 103 H Respiratory Rate 18 18 Blood Pressure 114/68 Pulse Oximetry 96 03/07/18 00:45 03/07/18 01:00 EDT 03/07/18 02:10 Temperature 97.4 F L 97.4 F L Pulse Rate 113 H 92 H Respiratory Rate 20 20 20 Blood Pressure 116/74 110/62 Pulse Oximetry 97 03/07/18 02:34 03/07/18 02:51 03/07/18 03:55 Temperature 97.4 F L 98.8 F Pulse Rate 94 H 91 H 102 H Respiratory Rate 20 16 Blood Pressure 110/62 109/63 Pulse Oximetry 97 97 03/07/18 04:20 03/07/18 05:45 03/07/18 08:00 Temperature 98.3 F 98.7 F Pulse Rate 97 H 86 Respiratory Rate 20 20 16 Blood Pressure 119/70 107/66 Pulse Oximetry 98 98 03/07/18 08:34 03/07/18 08:39 03/07/18 08:54 Temperature 98.7 F Pulse Rate 91 H Respiratory Rate 18 18 Blood Pressure 116/77 Pulse Oximetry 98 03/07/18 09:10 03/07/18 11:01 Temperature 98.4 F Pulse Rate 90 Respiratory Rate 18 18 Blood Pressure 137/83 Pulse Oximetry Intake & Output 03/06/18 03/07/18 03/07/18 19:59 06:59 18:59 Intake Total 500 / 500 Balance 500 / 500 Weight Intake: IV 100 / 100 NS Inj 1,000 ML @ 100 mls/hr IV .CONT .Q10H [facility] Rx#:[id number] NS Inj 250 ML @ 15 mls/hr IV. 100 / 100 SIG ONCE [facility] Rx#:[id number] Oral Other Rbc As-3 Leukoreduced Unit [id number] Intake (Blood Product) Amt 400 / 400 Rbc As-3 Leukoreduced Unit 400 / 400 [id number] Rbc As-3 Leukoreduced Unit [id number] Rbc As-3 Leukoreduced Unit [id number] Rbc As-3 Leukoreduced Unit [id number] Other: Other Intake Source # Voids Date of Last Bowel Movement # Bowel Movements Narrative: GENERAL: AAOx3, no acute distress SKIN: Warm and dry. No rashes HEAD: Atruamtic, normocephalic. EYES: No scleral icterus. No injection or drainage. ENT: Moist mucous membranes, patent nares, no erythema of oropharynx. NECK: Supple, trachea midline. No JVD or lymphadenopathy. Normal thyroid. CARDIOVASCULAR: Regular rate and rhythm. No murmurs, gallops, or rubs. RESPIRATORY: Breath sounds clear equal bilaterally. No crackles or wheezes. No accessory muscle use. GASTROINTESTINAL: Abdomen soft, non-tender, nondistended, normal active bowel sounds MUSCULOSKELETAL: No cyanosis, or edema. NEURO: CN II-XII grossly intact, no focal deficits, no slurring of speech Results - Labs CBC & Chem 7: 03/07/18 01:00 EST 03/07/18 01:00 EST Laboratory Results - last 24 hr 03/03/18 03/06/18 03/07/18 22:44 09:45 00:57 WBC RBC Hgb Hct MCV MCH MCHC RDW Plt Count MPV Sodium Potassium Chloride Carbon Dioxide Anion Gap BUN Creatinine Estimated GFR POC Glucose 167 H Random Glucose Calcium Prot Corrected Calcium Total Protein Blood Type A Positive Antibody Screen Negative MTS Gel Crossmatch See Detail See Detail 03/07/18 03/07/18 03/07/18 01:00 EST 01:00 EST 01:44 EST WBC 10.7 D RBC 2.28 L Hgb 6.9 L* Hct 20.5 L* MCV 90.0 MCH 30.3 MCHC 33.7 RDW 15.3 Plt Count 278 MPV 7.6 Sodium 144 Potassium 3.8 Chloride 112 H Carbon Dioxide 25.5 Anion Gap 7 BUN 12 Creatinine 0.90 Estimated GFR 87 L POC Glucose Random Glucose 140 H Calcium 7.2 L* Prot Corrected Calcium 8.6 Total Protein 4.6 L D Blood Type Antibody Screen MTS Gel Crossmatch See Detail 03/07/18 07:16 WBC RBC Hgb Hct MCV MCH MCHC RDW Plt Count MPV Sodium Potassium Chloride Carbon Dioxide Anion Gap BUN Creatinine Estimated GFR POC Glucose 124 H Random Glucose Calcium Prot Corrected Calcium Total Protein Blood Type Antibody Screen MTS Gel Crossmatch - Procedures ndoscopy Assessment and Plan - Assessment (1) GI bleed Code(s): K92.2 - Gastrointestinal hemorrhage, unspecified Status: Acute (2) Acute blood loss anemia Code(s): D62 - Acute posthemorrhagic anemia Status: Acute (3) Abdominal pain Code(s): R10.9 - Unspecified abdominal pain Status: Acute - Plan 57-year-old male with past medical history significant for pancreatitis, anemia, tobacco, alcohol abuse, and GI bleed who presents to the emergency department with complaints of abdominal pain, nausea, vomiting and bloody stools. Acute gastrointestinal bleed Patient has received a total of 5 units of packed red blood cells EGD showed pulsing artery which was clipped and treated with epinephrine injection, cauterized Bleeding returned, interventional radiology to embolize vessels feeding the duodenal varicosity Continuing IV Protonix N.p.o. until bleeding resolves Follow H&H twice daily Appreciate gastroenterology consult Appreciate interventional radiology Alcohol and tobacco abuse Patient counseled on the importance of cessation Continue CIWA protocol Continue folic acid, B1, & multivitamin Continue nicotine patch DVT prophylaxis SCDs, anticoagulation contraindicated secondary to active GI bleed (1) GI bleed Qualifiers: GI bleed type/associated pathology: unspecified gastrointestinal hemorrhage type Qualified Code(s): K92.2 - Gastrointestinal hemorrhage, unspecified
--- NOTE | 2018-03-07 12:20 | P.RAD ---
Post Procedure Progress Note - Pre Procedure Diagnosis (1) GI bleed (2) Acute blood loss anemia - Post Procedure Diagnosis (1) GI bleed (2) Acute blood loss anemia - Procedure Information Procedure Date: 03/07/18 Supervising Radiologist: Bert Dixon MD Estimated blood loss (mL): 3 Anesthesia: Local, Conscious Sedation - Plan of Activity Patient to Unit: PACU Patient Condition: Fair Additional Comments: Celiac angio completed.Large bleed evident adjacent to the clip in the duodenum GDA embolized with gelfoam and coils No bleeding evident post procedure Full report to follow See PACS Report for procedural detail/treatment.
[2018-03-07] MEDS: Morphine Sulfate 15 MG IR Tablet PO PRN ×3 (15:45→22:00)
[2018-03-07 16:01] LABS: Hematocrit 24.3 % (39.0-51.0); Hemoglobin 8.4 gm/dL (13.0-17.0)
[2018-03-08] MEDS: Sod Chloride 0.9% Inj 1,000 ML IV.CONT SCH ×3 (01:32→21:40)
[2018-03-08] MEDS: Morphine Sulfate Inj 2 MG/ML Vial IV.PUSH PRN ×3 (04:41→11:46)
[2018-03-08 05:44] LABS: Hematocrit 22.9 % (39.0-51.0); Hemoglobin 8.1 gm/dL (13.0-17.0)
[2018-03-08] MEDS: Sucralfate Liq 1 GM/10 ML UDC PO SCH ×4 (06:53→21:37)
[2018-03-08] MEDS: Morphine Sulfate 15 MG IR Tablet PO PRN ×4 (06:55→22:23)
[2018-03-08] MEDS: Multivitamin/Minerals Therapeutic Tablet PO SCH (07:59)
[2018-03-08] MEDS: Pantoprazole Inj 40 MG Vial IV.PUSH SCH ×2 (08:00→21:37)
[2018-03-08] MEDS: Folic Acid 1 MG Tablet PO SCH (08:00)
[2018-03-08] MEDS: Senna/Docusate Sodium 8.6/50 MG Tablet PO SCH ×2 (08:01→21:37)
--- NOTE | 2018-03-08 10:15 | IR ---
EXAM DATE: 03/07/2018 12:40 PM EST AGE/SEX: 57 years / Male INDICATIONS: Patient with history of GI Bleed in need of abdominal angiogram with embolization. CLINICAL DATA: This is the patient's initial encounter. Patient reports that signs and symptoms have been present for 4 - 6 days and indicates a pain score of 9/10. MEDICAL/SURGICAL HISTORY: Anemia. Pancreatitis. Tobacco and alcohol abuse, GI bleed EGD COMPARISON: No prior exams available for comparison. FLUORO TIME (min): 24.8 IMAGE SERIES: 4 ACCESS SITE: Right femoral artery SEDATION TIME (min): 45 CONTRAST (cc): 100CC Visipaque (iodixanol) MEDICATION(S): 3MG midazolam (Versed) IV ; 150MCG fentanyl (Sublimaze) IV ; ; ; DEVICE(S): Gastroduodenal artery embolic coil(s) Tornado 035 4X3MM X4 ; Gastroduodenal artery Gelfoam 12-7MM ; R ight common femoral artery Angio-Seal 6F ; ; ; ; . . PROCEDURE : 1. Ultrasound-guided puncture of the access site. 2. Conscious sedation with continuous EKG and Oximetry monitoring. 3. Angiography of the celiac axis 4. Embolization of the gastroduodenal artery 5. Angiography of the right groin prior to closure Clinical history: The patient is a 57-year-old with known bleeding gastroduodenal ulcer. The patient had previously undergone clipping of the ulcer. The patient remained stable for approximately 24 hour s however approximately 1 to 2 hours prior to this procedure the patient experienced a large upper GI bleed. We're asked to proceed angioembolization. The risks, benefits and alternatives to the procedure were explained and verbal and written consent w as obtained. The site was prepped in sterile fashion. Full sterile technique was used, including ca p, mask, sterile gloves and gown and a large sterile sheet. Hand hygiene and 2% chlorhexidine and/or betadine/alcohol prep was utilized per protocol for cutaneous antisepsis. Sterile gel and sterile p robe cover were utilized for ultrasound guidance. The skin and subcutaneous tissues were infiltrated with local anesthetic solution. With ultrasound and fluoroscopic guidance the selected artery was punctured and a vascular sheath was placed. A 0.035 angle Glidewire and 4 [place]ien hook catheter were advanced into the celiac axis. Angiography of the celiac axis was performed. The hook catheter was exchanged for a single interval glide catheter. Selective evaluation of the gastroduodenal artery was performed. Results: The celiac axis is widely patent. The hepatic, splenic and left gastric are widely patent. E valuation of the gastroduodenal artery demonstrated a large active hemorrhage immediately adjacent to the patient's clip. A 4 mm x 2 cm embolization coil was advanced into the distal gastroduodenal. This was backed by appro ximately 1 cc of Gelfoam. A second coil was placed again this was backed by a small injection of Gelf oam in 2 more coils were placed in the proximal gastroduodenal artery. At the completion of the proce dure. There was no flow evident in the distal gastroduodenal. There is no flow evident within the are a of hemorrhage. The puncture site was closed with an Angio-Seal closure device. The patient tolerated the procedure w ell and there were no complications. Conscious sedation was performed with the prescribed dosages and duration as above in the presence of an independent trained radiology nurse to assist in the monitoring of the patient. EKG and oximetry remained stable throughout the procedure. CONCLUSION: 1. Successful embolization of a large bleeding ulcer arising from the gastroduodenal circulation. Electronically signed by: Bert Dixon MD 03/08/2018 10:14 AM EST
--- NOTE | 2018-03-08 14:16 | P.PN ---
Subjective Interval history: This is a pleasant 57 y/o Male who was admitted with GI bleed, status post EGD and clip applied to he received five total units of PRBCs and now his Hemoglobin is 8.1, status post Gastroduodenal Artery embolization, patient stable no new issues reported. discussed with nurse and MDR. patient asking for pain medicine. Physical Exam Vital signs: Vital Signs 03/07/18 14:02 03/07/18 15:02 03/07/18 16:00 Temperature 98.3 F 98.2 F 98.3 F Pulse Rate 108 H 82 103 H Respiratory Rate 16 18 Blood Pressure 149/97 H 141/82 H 143/80 H Pulse Oximetry 98 03/07/18 16:18 03/07/18 18:02 03/07/18 18:20 Temperature 98.1 F Pulse Rate 87 86 Respiratory Rate 18 20 Blood Pressure 184/81 H 173/77 H Pulse Oximetry 03/07/18 20:00 03/07/18 20:21 03/08/18 00:00 Temperature 98.5 F 98.1 F Pulse Rate 104 H 89 103 H Respiratory Rate 17 18 Blood Pressure 176/89 H 146/91 H Pulse Oximetry 100 100 03/08/18 04:00 03/08/18 08:00 03/08/18 09:05 Temperature 98.5 F 97.2 F L Pulse Rate 97 H 93 H Respiratory Rate 17 18 16 Blood Pressure 169/87 H 155/92 H Pulse Oximetry 99 100 03/08/18 12:00 03/08/18 12:35 Temperature 98.4 F Pulse Rate 96 H Respiratory Rate 18 16 Blood Pressure 146/83 H Pulse Oximetry 100 Intake & Output 03/07/18 03/08/18 03/08/18 18:59 06:59 18:59 Intake Total 2460 / 2460 1000 / 1000 100 / 100 Output Total 1825 / 1825 Balance 635 / 635 1000 / 1000 100 / 100 Weight 66.1 kg Intake: IV 1100 / 1100 1000 / 1000 100 / 100 NS Inj 1,000 ML @ 100 mls/hr IV 1000 / 1000 1000 / 1000 .CONT .Q10H RYAN Rx#:[id number] NS Inj 250 ML @ 15 mls/hr IV. 100 / 100 0 / 0 SIG ONCE RYAN Rx#:[id number] Oral 960 / 960 Intake (Blood Product) Amt 400 / 400 Rbc As-3 Leukoreduced Unit 400 / 400 [id number] Output: Urine 1825 / 1825 Other: # Voids 2 Date of Last Bowel Movement 03/07/18 03/07/18 # Bowel Movements 1 Narrative: GENERAL: AAOx3, no acute distress SKIN: Warm and dry. No rashes HEAD: Atruamtic, normocephalic. EYES: No scleral icterus. No injection or drainage. ENT: Moist mucous membranes, patent nares, no erythema of oropharynx. NECK: Supple, trachea midline. No JVD or lymphadenopathy. Normal thyroid. CARDIOVASCULAR: Regular rate and rhythm. No murmurs, gallops, or rubs. RESPIRATORY: Breath sounds clear equal bilaterally. No crackles or wheezes. No accessory muscle use. GASTROINTESTINAL: Abdomen soft, non-tender, nondistended, normal active bowel sounds MUSCULOSKELETAL: No cyanosis, or edema. NEURO: CN II-XII grossly intact, no focal deficits, no slurring of speech Results - Labs CBC & Chem 7: 03/08/18 04:16 03/07/18 01:00 EST Laboratory Results - last 24 hr 03/07/18 03/07/18 03/07/18 14:35 14:45 16:56 Hgb 8.4 L Hct 24.3 L POC Glucose 136 H 148 H 03/07/18 03/08/18 03/08/18 20:26 04:16 07:03 Hgb 8.1 L Hct 22.9 L POC Glucose 119 H 131 H 03/08/18 11:52 Hgb Hct POC Glucose 107 - Imaging Impressions Abdomen Arteriogram 03/07/18 00:00 CONCLUSION: 1. Successful embolization of a large bleeding ulcer arising from the gastroduodenal circulation. - Procedures ndoscopy Interventional Radiology Gastroduodenal Artery Embolization 03/07/18 Assessment and Plan - Assessment (1) GI bleed Code(s): K92.2 - Gastrointestinal hemorrhage, unspecified Status: Acute (2) Acute blood loss anemia Code(s): D62 - Acute posthemorrhagic anemia Status: Acute (3) Abdominal pain Code(s): R10.9 - Unspecified abdominal pain Status: Acute - Plan 57-year-old male with past medical history significant for pancreatitis, anemia, tobacco, alcohol abuse, and GI bleed who presents to the emergency department with complaints of abdominal pain, nausea, vomiting and bloody stools. Acute gastrointestinal bleed Patient has received a total of 5 units of packed red blood cells EGD showed pulsing artery which was clipped and treated with epinephrine injection, cauterized Bleeding returned, Status post Interventional had Gastroduodenal Artery Embolization 03/07/18 hemoglobin 8.1 today. Continuing IV Protonix N.p.o. until bleeding resolves Follow H&H twice daily awaiting final by GI for discharge Appreciate interventional radiology Alcohol and tobacco abuse Patient counseled on the importance of cessation Continue CIWA protocol Continue folic acid, B1, & multivitamin Continue nicotine patch DVT prophylaxis SCDs, anticoagulation contraindicated secondary to active GI bleed Code Status: Full Code. Discussed Condition With: Patient and Nurse and MDR. Discharge Planning: once cleared by GI specialists. (1) GI bleed Qualifiers: GI bleed type/associated pathology: unspecified gastrointestinal hemorrhage type Qualified Code(s): K92.2 - Gastrointestinal hemorrhage, unspecified
--- NOTE | 2018-03-08 15:04 | P.PNGI ---
Subjective Interval history: Patient is status post IR embolization today but still complains of generalized lower abdominal pain, states IV pain meds ineffective Current hemoglobin 8.1, no rectal bleeding since 0500 this a.m. Mild anxiety but no obvious nausea or vomiting <Michelle Randolph - Last Filed: 03/08/18 14:58> Physical Exam Vital signs: Vital Signs 03/07/18 15:02 03/07/18 16:00 03/07/18 16:18 Temperature 98.2 F 98.3 F Pulse Rate 82 103 H Respiratory Rate 16 18 18 Blood Pressure 141/82 H 143/80 H Pulse Oximetry 98 03/07/18 18:02 03/07/18 18:20 03/07/18 20:00 Temperature 98.1 F 98.5 F Pulse Rate 87 86 104 H Respiratory Rate 20 17 Blood Pressure 184/81 H 173/77 H 176/89 H Pulse Oximetry 100 03/07/18 20:21 03/08/18 00:00 03/08/18 04:00 Temperature 98.1 F 98.5 F Pulse Rate 89 103 H 97 H Respiratory Rate 18 17 Blood Pressure 146/91 H 169/87 H Pulse Oximetry 100 99 03/08/18 08:00 03/08/18 09:05 03/08/18 12:00 Temperature 97.2 F L 98.4 F Pulse Rate 93 H 96 H Respiratory Rate 18 16 18 Blood Pressure 155/92 H 146/83 H Pulse Oximetry 100 100 03/08/18 12:35 Temperature Pulse Rate Respiratory Rate 16 Blood Pressure Pulse Oximetry Intake & Output 03/07/18 03/08/18 03/08/18 18:59 06:59 18:59 Intake Total 2460 / 2460 1000 / 1000 100 / 100 Output Total 1825 / 1825 Balance 635 / 635 1000 / 1000 100 / 100 Weight 66.1 kg Intake: IV 1100 / 1100 1000 / 1000 100 / 100 NS Inj 1,000 ML @ 100 mls/hr IV 1000 / 1000 1000 / 1000 .CONT .Q10H RYAN Rx#:[id number] NS Inj 250 ML @ 15 mls/hr IV. 100 / 100 0 / 0 SIG ONCE RYAN Rx#:[id number] Oral 960 / 960 Intake (Blood Product) Amt 400 / 400 Rbc As-3 Leukoreduced Unit 400 / 400 [id number] Output: Urine 1825 / 182 Other: # Voids 2 Date of Last Bowel Movement 03/07/18 03/07/18 # Bowel Movements 1 - Constitutional mild distress, cachectic, chronically ill appearing, agitated - Routine HEENT Exam Head: Present: normocephalic (Mild) ENT: Present: mucous membranes moist - Routine Neck Exam Present: supple - Routine Respiratory Exam Present: accessory muscle use (Even, unlabored at rest) - Routine Abdominal Exam Present: soft (Generalized mid abdominal discomfort states constant with some sharp pains), normoactive bowel sounds (No obvious rectal bleeding) - Routine Neurological Exam Present: alert (Answer simple questions appropriately) <Michelle Randolph - Last Filed: 03/08/18 14:58> Vital signs: Vital Signs 03/07/18 18:20 03/07/18 20:00 03/07/18 20:21 Temperature 98.5 F Pulse Rate 86 104 H 89 Respiratory Rate 17 Blood Pressure 173/77 H 176/89 H Pulse Oximetry 100 03/08/18 00:00 03/08/18 04:00 03/08/18 08:00 Temperature 98.1 F 98.5 F 97.2 F L Pulse Rate 103 H 97 H 93 H Respiratory Rate 18 17 18 Blood Pressure 146/91 H 169/87 H 155/92 H Pulse Oximetry 100 99 100 03/08/18 09:05 03/08/18 12:00 03/08/18 12:35 Temperature 98.4 F Pulse Rate 96 H Respiratory Rate 16 18 16 Blood Pressure 146/83 H Pulse Oximetry 100 03/08/18 16:00 Temperature 97.9 F Pulse Rate 106 H Respiratory Rate 18 Blood Pressure 135/85 Pulse Oximetry 98 Intake & Output 03/07/18 03/08/18 03/08/18 18:59 06:59 18:59 Intake Total 2460 / 2460 1000 / 1000 1100 / 1100 Output Total 1825 / 1825 Balance 635 / 635 1000 / 1000 1100 / 1100 Weight 66.1 kg Intake: IV 1100 / 1100 1000 / 1000 1100 / 1100 NS Inj 1,000 ML @ 50 mls/hr IV. 1000 / 1000 1000 / 1000 1000 / 1000 CONT .Q20H RYAN Rx#:[id number] NS Inj 250 ML @ 15 mls/hr IV. 100 / 100 0 / 0 SIG ONCE RYAN Rx#:[id number] Oral 960 / 960 Intake (Blood Product) Amt 400 / 400 Rbc As-3 Leukoreduced Unit 400 / 400 [id number] Output: Urine 1825 / 1825 Other: # Voids 2 Date of Last Bowel Movement 03/07/18 03/07/18 # Bowel Movements 1 <Aggie Pendleton - Last Filed: 03/08/18 18:15> Results - Labs CBC & Chem 7: 03/08/18 04:16 03/07/18 01:00 EST Laboratory Results - last 24 hr 03/07/18 03/07/18 03/07/18 14:35 16:56 20:26 Hgb 8.4 L Hct 24.3 L POC Glucose 148 H 119 H 03/08/18 03/08/18 03/08/18 04:16 07:03 11:52 Hgb 8.1 L Hct 22.9 L POC Glucose 131 H 107 - Imaging Impressions Abdomen Arteriogram 03/07/18 00:00 CONCLUSION: 1. Successful embolization of a large bleeding ulcer arising from the gastroduodenal circulation. - Procedures ndoscopy Interventional Radiology Gastroduodenal Artery Embolization 03/07/18 <Michelle Randolph - Last Filed: 03/08/18 14:58> - Labs CBC & Chem 7: 03/08/18 04:16 03/07/18 01:00 EST Laboratory Results - last 24 hr 03/07/18 03/08/18 03/08/18 20:26 04:16 07:03 Hgb 8.1 L Hct 22.9 L POC Glucose 119 H 131 H 03/08/18 03/08/18 11:52 16:46 Hgb Hct POC Glucose 107 123 H - Imaging Impressions Abdomen Arteriogram 03/07/18 00:00 CONCLUSION: 1. Successful embolization of a large bleeding ulcer arising from the gastroduodenal circulation. <Aggie Pendleton - Last Filed: 03/08/18 18:15> Assessment and Plan (1) GI bleed Status: Acute Code(s): K92.2 - Gastrointestinal hemorrhage, unspecified (2) Acute blood loss anemia Status: Acute Code(s): D62 - Acute posthemorrhagic anemia (3) Abdominal pain Status: Acute Code(s): R10.9 - Unspecified abdominal pain - Plan - Duodenal ulcer and related anemia and Gi bleed-had few episodes of melena last night, hgb declined, he is currently receiving blood transfusion, no nausea or vomiting. He is having abd cramps, going to IR today for embolization EGD 03/04/2018. Findings as follows--> Esophagus: Mild esophagitis, questionable Orly biopsy from the distal esophagus. Stomach normal with significant amount of blood in the stomach most likely coming from the duodenal ulcer Duodenum large duodenal bulb ulcer with active bleeding, pulsating artery this was clipped by 2 clips and then injected with 6 cc of epinephrine. Also cauterized with gold probe. There was complete stop of the bleeding but this could be temporarily and the patient can bleed again. Patient denies any nausea vomiting or active bleeding. Hemoglobin 7.2 seems to be stable 03/03/2018 CT abdomen and pelvis revealed the following findings: 1. Mild to moderate diverticulosis with no definite inflammatory change. There is a nonobstructive bowel gas pattern. 2. The gallbladder is decompressed but otherwise unremarkable. 3. Moderate to severe hepatic steatosis again noted. 03/08/2018 patient is status post successful IR embolization from the gastroduodenal circulation, large bleeding ulcer. No rectal bleeding and no BMs since back to the room this afternoon. Continues with mid umbilical region abdominal pain, current labs reviewed with hemoglobin 8.1 Successful embolization of a large bleeding ulcer arising from the gastroduodenal circulation. Hospitalist discussed with patient possible discharge today but patient states he is still having uncontrolled abdominal pain. As long as patient's hemoglobin is stable and he is having no rectal bleeding he should be able to manage outpatient and follow-up in the GI office in 2-4 weeks Plan Diet as tolerated, soft foods this p.m. and monitor for his toleration and hydration PPI continue even after discharge EtOH abstinence Monitor for any rectal bleeding and call GI Transition to p.o. pain meds Supportive care Patient was seen per myself and Dr. Pendleton, note was written on her behalf <Michelle Randolph - Last Filed: 03/08/18 14:58> (1) GI bleed Status: Acute Code(s): K92.2 - Gastrointestinal hemorrhage, unspecified (2) Acute blood loss anemia Status: Acute Code(s): D62 - Acute posthemorrhagic anemia (3) Abdominal pain Status: Acute Code(s): R10.9 - Unspecified abdominal pain - Attending Attestation seen, examined agree with above ok to dc home from gi point egd 8 weeks gi will sign off call us as needed <Aggie Pendleton - Last Filed: 03/08/18 18:15> <Michelle Randolph - Last Filed: 03/08/18 14:58> (1) GI bleed Qualifiers: GI bleed type/associated pathology: unspecified gastrointestinal hemorrhage type Qualified Code(s): K92.2 - Gastrointestinal hemorrhage, unspecified <Aggie Pendleton - Last Filed: 03/08/18 18:15> (1) GI bleed Qualifiers: GI bleed type/associated pathology: unspecified gastrointestinal hemorrhage type Qualified Code(s): K92.2 - Gastrointestinal hemorrhage, unspecified
--- NOTE | 2018-03-08 16:48 | P.RAD ---
Radiology Note Patient is status post gastroduodenal embolization today. He had a large bleeding ulcer arising from the gastroduodenal circulation which was successfully embolized. He continues to complain about some mild generalized abdominal pain however he did admit that the pain medicines are effective. He also continued to express his concerns about being discharged this evening and is mostly worried because he is homeless. No recent episodes of any rectal bleeding or BMs today. Hemoglobin from this morning was 8.1. Per the hospitalist and GI progress notes, they will transition his diet into soft foods and monitor his toleration as well as hydration. They will monitor for any rectal bleeding and call the GI team if needed. They will also transition to p.o. pain medications. Patient denies having any further complaints or concerns to discuss at this time.
[2018-03-09] MEDS: Morphine Sulfate 15 MG IR Tablet PO PRN ×3 (02:34→10:04)
[2018-03-09] MEDS: Sucralfate Liq 1 GM/10 ML UDC PO SCH (06:12)
[2018-03-09] MEDS: Pantoprazole Inj 40 MG Vial IV.PUSH SCH (10:04)
[2018-03-09] MEDS: Senna/Docusate Sodium 8.6/50 MG Tablet PO SCH (10:05)
[2018-03-09] MEDS ORDERED: Morphine Sulfate 15 MG IR Tablet PO PRN (10:30)
--- NOTE | 2018-03-09 10:31 | P.PN ---
Subjective Interval history: This is a pleasant 57 y/o Male who was admitted with GI bleed, status post EGD and clip applied to he received five total units of PRBCs and now his Hemoglobin is 8.1, status post Gastroduodenal Artery embolization, patient stable no new issues reported. discussed with nurse and MDR. patient asking for pain medicine. 03/09: Stable in his bedroom discussed with him and nurse Present Miss Beyer, no nausea, vomit or diarrhea. Physical Exam Vital signs: Vital Signs 03/08/18 12:00 03/08/18 12:35 03/08/18 16:00 Temperature 98.4 F 97.9 F Pulse Rate 96 H 106 H Respiratory Rate 18 16 18 Blood Pressure 146/83 H 135/85 Pulse Oximetry 100 98 03/08/18 20:00 03/09/18 00:00 03/09/18 04:00 Temperature 98.5 F 98.3 F 97.8 F Pulse Rate 100 H 102 H 95 H Respiratory Rate 18 16 18 Blood Pressure 128/77 151/76 H 130/72 Pulse Oximetry 98 98 100 03/09/18 08:00 Temperature 98.3 F Pulse Rate 99 H Respiratory Rate 20 Blood Pressure 120/85 Pulse Oximetry 95 Intake & Output 03/08/18 03/09/18 03/09/18 18:59 06:59 18:59 Intake Total 2019 240 / 240 Output Total Balance 2019 239 / 239 Weight 65.2 kg Intake: IV 1100 / 1100 NS Inj 1,000 ML @ 50 mls/hr IV. 1000 / 1000 CONT .Q20H RYAN Rx#:[id number] Oral 920 / 920 240 / 240 Output: Urine/Stool Mix Other: # Voids 5 6 Date of Last Bowel Movement 03/08/18 Narrative: GENERAL: AAOx3, no acute distress SKIN: Warm and dry. No rashes HEAD: Atruamtic, normocephalic. EYES: No scleral icterus. No injection or drainage. ENT: Moist mucous membranes, patent nares, no erythema of oropharynx. NECK: Supple, trachea midline. No JVD or lymphadenopathy. Normal thyroid. CARDIOVASCULAR: Regular rate and rhythm. No murmurs, gallops, or rubs. RESPIRATORY: Breath sounds clear equal bilaterally. No crackles or wheezes. No accessory muscle use. GASTROINTESTINAL: Abdomen soft, non-tender, nondistended, normal active bowel sounds MUSCULOSKELETAL: No cyanosis, or edema. NEURO: CN II-XII grossly intact, no focal deficits, no slurring of speech Results - Labs CBC & Chem 7: 03/09/18 10:45 03/07/18 01:00 EST Laboratory Results - last 24 hr 03/08/18 03/08/18 03/08/18 11:52 16:46 20:12 POC Glucose 107 123 H 96 - Imaging Chest X-Ray 03/03/18 13:52 CONCLUSION: Mild interstitial edema suspicious for congestive failure. Abdomen/Pelvis CT 03/03/18 13:55 CONCLUSION: 1. Mild to moderate diverticulosis with no definite inflammatory change. There is a nonobstructive bowel gas pattern. 2. The gallbladder is decompressed but otherwise unremarkable. 3. Moderate to severe hepatic steatosis again noted. Abdomen Arteriogram 03/07/18 00:00 CONCLUSION: 1. Successful embolization of a large bleeding ulcer arising from the gastroduodenal circulation. - Procedures ndoscopy Interventional Radiology Gastroduodenal Artery Embolization 03/07/18 Assessment and Plan - Assessment (1) GI bleed Code(s): K92.2 - Gastrointestinal hemorrhage, unspecified Status: Acute (2) Acute blood loss anemia Code(s): D62 - Acute posthemorrhagic anemia Status: Acute (3) Abdominal pain Code(s): R10.9 - Unspecified abdominal pain Status: Acute - Plan 57-year-old male with past medical history significant for pancreatitis, anemia, tobacco, alcohol abuse, and GI bleed who presents to the emergency department with complaints of abdominal pain, nausea, vomiting and bloody stools. Acute gastrointestinal bleed Patient has received a total of 5 units of packed red blood cells EGD showed pulsing artery which was clipped and treated with epinephrine injection, cauterized Bleeding returned, Status post Interventional had Gastroduodenal Artery Embolization 03/07/18 hemoglobin 8.1 today. Continuing IV Protonix N.p.o. until bleeding resolves Follow H&H twice daily awaiting final by GI for discharge Appreciate interventional radiology hemoglobin today 8.2 stable okay to discharge home. Alcohol and tobacco abuse Patient counseled on the importance of cessation Continue CIWA protocol Continue folic acid, B1, & multivitamin Continue nicotine patch DVT prophylaxis SCDs, anticoagulation contraindicated secondary to active GI bleed [facility] [place] Prescription Drug Monitoring Database has been queried and verified prior to prescribing the controlled substance. Acute pain exception. This patient has normal, predicted, physiological, and time limited response to an adverse mechanical stimulus associated with surgery, trauma, or acute illness as described in my notes. There is a lack of alternative treatment options other than to include the prescribed narcotic treatment for this condition. Code Status: Full code. Discussed Condition With: Patient and Nurse Miss Beyer arie LE Discharge Planning: Discharge today and follow with GI specialist. (1) GI bleed Qualifiers: GI bleed type/associated pathology: unspecified gastrointestinal hemorrhage type Qualified Code(s): K92.2 - Gastrointestinal hemorrhage, unspecified
[2018-03-09 11:23] LABS: Hematocrit 24.4 % (39.0-51.0); Hemoglobin 8.2 gm/dL (13.0-17.0)
--- NOTE | 2018-03-09 13:52 | P.DS ---
Date of admission: 03/03/18 17:05 Primary care physician: No Primary Care Physician Attending physician on discharge: Adonay Maurice Anticipated date of discharge: 03/09/18 Brief History from admission: 57-year-old male with past medical history significant for pancreatitis, anemia, tobacco, alcohol abuse, and GI bleed who presents to the emergency department with complaints of complains of abdominal pain the began 1 week ago through entire top area of abdomen, he has noticed that pain has also worsened from a week ago. Pain 20/10 throbbing, does not radiate. Patient states that he was trying Rolaids at home with no effect. Sitting make pain better, nothing seems to make it better. He has been having nausea and vomiting for the past 3-4 days. Denies hematemesis just what he describes as bile. States that for the past 2 day he has been having blood BM's with a combination of dark and bright red blood. Prior to this he was having diarrhea for about a week. He also endorses lightheadedness, denies chest pain or palpitations. Denies any fevers or chills. Is requesting something for abdominal pain and is also requesting to drink, no other concerns. DS: Diagnosis - Discharge Diagnosis (1) GI bleed Status: Acute (2) Acute blood loss anemia Status: Acute (3) Abdominal pain Status: Acute DS: Medications - Discharge Medications Prescriptions: morphine 15 mg PO Q6H PRN #10 tab PRN Reason: Pain DS: Summary Hospital Course: This is a pleasant 57 y/o Male who was admitted with GI bleed, status post EGD and clip applied to he received five total units of PRBCs and now his Hemoglobin is 8.1, status post Gastroduodenal Artery embolization, patient stable no new issues reported. discussed with nurse and MDR. patient asking for pain medicine. 03/09: Stable in his bedroom discussed with him and nurse Present Miss Beyer, no nausea, vomit or diarrhea. Assessment and Plan - Assessment (1) GI bleed Code(s): K92.2 - Gastrointestinal hemorrhage, unspecified Status: Acute (2) Acute blood loss anemia Code(s): D62 - Acute posthemorrhagic anemia Status: Acute (3) Abdominal pain Code(s): R10.9 - Unspecified abdominal pain Status: Acute - Plan 57-year-old male with past medical history significant for pancreatitis, anemia, tobacco, alcohol abuse, and GI bleed who presents to the emergency department with complaints of abdominal pain, nausea, vomiting and bloody stools. Acute gastrointestinal bleed Patient has received a total of 5 units of packed red blood cells EGD showed pulsing artery which was clipped and treated with epinephrine injection, cauterized Bleeding returned, Status post Interventional had Gastroduodenal Artery Embolization 03/07/18 hemoglobin 8.1 today. Continuing IV Protonix N.p.o. until bleeding resolves Follow H&H twice daily awaiting final by GI for discharge Appreciate interventional radiology hemoglobin today 8.2 stable okay to discharge home. Alcohol and tobacco abuse Patient counseled on the importance of cessation Continue CIWA protocol Continue folic acid, B1, & multivitamin Continue nicotine patch DVT prophylaxis SCDs, anticoagulation contraindicated secondary to active GI bleed [email or web address] Prescription Drug Monitoring Database has been queried and verified prior to prescribing the controlled substance. Acute pain exception. This patient has normal, predicted, physiological, and time limited response to an adverse mechanical stimulus associated with surgery, trauma, or acute illness as described in my notes. There is a lack of alternative treatment options other than to include the prescribed narcotic treatment for this condition. Code Status: Full code. Discussed Condition With: Patient and Nurse Miss Beyer and MIMI Discharge Planning: Discharge today and follow with GI specialist. (1) GI bleed Qualifiers: GI bleed type/associated pathology: unspecified gastrointestinal hemorrhage type Qualified Code(s): K92.2 - Gastrointestinal hemorrhage, unspecified - Time Spent with Patient Total time spent providing and/or coordinating discharge services: Greater than 30 minutes - Quality: VTE Deep Vein Thrombosis/Pulmonary Embolism Present on Admission: No Exam Vital signs: Vital Signs 03/08/18 16:00 03/08/18 20:00 03/09/18 00:00 Temperature 97.9 F 98.5 F 98.3 F Pulse Rate 106 H 100 H 102 H Respiratory Rate 18 18 16 Blood Pressure 135/85 128/77 151/76 H Pulse Oximetry 98 98 98 03/09/18 04:00 03/09/18 08:00 Temperature 97.8 F 98.3 F Pulse Rate 95 H 99 H Respiratory Rate 18 20 Blood Pressure 130/72 120/85 Pulse Oximetry 100 95 Intake & Output 03/08/18 03/09/18 03/09/18 18:59 06:59 18:59 Intake Total 2019 240 / 240 1000 / 1000 Output Total Balance 2019 239 / 239 1000 / 1000 Weight 65.2 kg Intake: IV 1100 / 1100 1000 / 1000 NS Inj 1,000 ML @ 50 mls/hr IV. 1000 / 1000 1000 / 1000 CONT .Q20H RYAN Rx#:[id number] Oral 920 / 920 240 / 240 Output: Urine/Stool Mix Other: # Voids 5 6 Date of Last Bowel Movement 03/08/18 Narrative: GENERAL: AAOx3, no acute distress SKIN: Warm and dry. No rashes HEAD: Atruamtic, normocephalic. EYES: No scleral icterus. No injection or drainage. ENT: Moist mucous membranes, patent nares, no erythema of oropharynx. NECK: Supple, trachea midline. No JVD or lymphadenopathy. Normal thyroid. CARDIOVASCULAR: Regular rate and rhythm. No murmurs, gallops, or rubs. RESPIRATORY: Breath sounds clear equal bilaterally. No crackles or wheezes. No accessory muscle use. GASTROINTESTINAL: Abdomen soft, non-tender, nondistended, normal active bowel sounds MUSCULOSKELETAL: No cyanosis, or edema. NEURO: CN II-XII grossly intact, no focal deficits, no slurring of speech Results Procedures completed during hospitalization: ndoscopy Interventional Radiology Gastroduodenal Artery Embolization 03/07/18 Completed studies during hospitalization: Pending at discharge 03/04/18 16:40 Surgical [PTH] Routine Labs on day of discharge: Labs from last 24 hours 03/09/18 03/08/18 03/08/18 10:45 20:12 16:46 Hgb 8.2 L Hct 24.4 L POC Glucose 96 123 H - Impressions ITS Impressions Chest X-Ray 03/03/18 13:52 CONCLUSION: Mild interstitial edema suspicious for congestive failure. Abdomen/Pelvis CT 03/03/18 13:55 CONCLUSION: 1. Mild to moderate diverticulosis with no definite inflammatory change. There is a nonobstructive bowel gas pattern. 2. The gallbladder is decompressed but otherwise unremarkable. 3. Moderate to severe hepatic steatosis again noted. Abdomen Arteriogram 03/07/18 00:00 CONCLUSION: 1. Successful embolization of a large bleeding ulcer arising from the gastroduodenal circulation. Discharge Plan - Discharge Disposition Patient Disposition: Discharge Home - Discharge Condition Condition: Stable - Discharge Order Discharge Orders: Discharge Order (Routine); Ordered 03/09/18 Ordered By: Adonay Maurice - Discharge Details Anticipated Discharge Date: 03/09/18 Discharge Comment: Follow up with GI spcialist doctor Aggie Pendleton in two weeks. - Physicians Team Primary Care Provider: Primary Care Lorettai,No Attending Provider: Adonay Maurice Other Providers: Barrington Hay MD
== END 2018-03-09 14:48 | disposition home or self-care (01) ==
LOC: NEPC 12:38 → NEDA 17:05 → NEDH 21:01 → N03 03-04 06:38 → N06 03-05 18:42
PROVIDERS: ADMIT Internal Medicine; ATTEND Internal Medicine
PROC: PANENDO (2018-03-04 11:00)